=== PATIENT | female | born 1960 | race African-American/Black ===

== ENCOUNTER 2016-06-02 17:28 | Emergency (ER) | payer MEDICARE, MEDICAID ==
[2016-06-02] MEDS ORDERED: ONDANSETRON 4 MG ORAL DISINTEGRATING TAB (S0181) As Ordered ONE (18:26)
--- NOTE | 2016-06-02 18:33 | EDDOCDS ---
Physician Documentation [facility] Name: Mandie Carreon Age: 55 yrs Sex: Female : 1960 Arrival Date: 06/02/2016 Time: 17:28 Bed Triage 1 Private MD: Gloria Jovel C Disposition: 06/02/16 18:27 Discharged to Home/Self Care. Impression: Other dental procedure status - post operative pain and swelling. - Condition is Stable. - Discharge Instructions: Dental Pain. - Prescriptions for ZOFRAN ODT 4 mg Oral - dissolve 1 tablet by ORAL route 4 times per day As needed do not chew, do not swallow whole; 15 tablet. - Medication Reconciliation, Local Pharmacy Hours, Dental Referral List form. - Follow up: Gloria Jovel; When: Call to arrange an appointment; Reason: Recheck today's complaints, Continuance of care. - Problem is new. - Symptoms are unchanged. Historical: - Allergies: Darvocet-N 100 (Vomit); Tramadol HCl (itching); - Home Meds: 1. Nasal [place] 12 Hour 0.05 % nasal spry 2 times per day 2. amoxicillin-pot clavulanate 875-125 mg Oral tab every 12 hours 3. ibuprofen 800 mg Oral tab 4 times per day 4. oxycodone-acetaminophen 5-325 mg Oral tab every 6 hours (Last dose: 06/02/2016) 5. Vitamin D2 50,000 unit oral cap 1 cap once wkly 6. proAir HFA 2 puff as needed - PMHx: Bronchitis; - PSHx: oral surgery; - Social history: Smoking status: Patient states was never smoker of tobacco. No barriers to communication noted, The patient speaks fluent Azeri, Speaks appropriately for age. - Family history: Not pertinent. - : The pt / caregiver states he / she is not on anticoagulants. Home medication list is obtained from the patient. - Exposure Risk Screening:: None identified. 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 6 in. (167.64 cm) (R); Pain 10/22; 17:30 Body Mass Index 23.73 (66.68 kg, 167.64 cm) gr2 MDM: 18:25 Ondansetron ODT Oral Disintegrating Tablet 4 mg PO once ordered. mo1 Administered Medications: 18:28 Drug: Ondansetron ODT 4 mg [ondansetron 4 mg disintegrating tablet (1 tabs)] Route: PO; ck1 Signatures: Shraddha Douglas,RN RN ck1 Hoang Garza PA PA mo1 Iman Ricketts,ANA MARIA RN mei MTDD
--- NOTE | 2016-06-02 18:34 | EDDOCDS ---
Nurse's Notes [facility] Name: Mandie Carreon Age: 55 yrs Sex: Female : 1960 Arrival Date: 06/02/2016 Time: 17:28 Bed Triage 1 Private MD: Gloria Jovel C Diagnosis: Other dental procedure status-post operative pain and swelling Presentation: 06/02 17:43 Presenting complaint: Patient states: pt reports having oral surgery on 05/30/16. Pt c/o ead n/v since. Adult Sepsis Screening: The patient does not have new or worsening altered mentation. Patient's respiratory rate is less than 22. Systolic blood pressure is greater than 100. Patient has a qSOFA score of 0- Negative Sepsis Screen. Suicide/Homicide risk assessment- the patient denies having any suicidal and/or homicidal ideations and does not present with any other emotional, behavioral or mental health complaints. Status: Patient is not a vp client services or dependent. Transition of care: patient was not received from another setting of care. 17:43 Acuity: VICTOR M Level 4 ead 17:43 Method Of Arrival: Walkin/Carried/Asstd ead Triage Assessment: 17:46 General: Appears in no apparent distress, uncomfortable, Behavior is appropriate for ead age, cooperative. Pain: Location: face Pain currently is 10 out of 10 on a pain scale. HIV screening NA for this visit Offered previously. EENT: Reports pain in right cheek and right jaw. GI: Reports nausea, vomiting. 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 Nasal [place] 12 Hour 0.05 % nasal spry 2 times per day 2. amoxicillin-pot clavulanate 875-125 mg Oral tab every 12 hours 3. ibuprofen 800 mg Oral tab 4 times per day 4. oxycodone-acetaminophen 5-325 mg Oral tab every 6 hours (Last dose: 06/02/2016) 5. Vitamin D2 50,000 unit oral cap 1 cap once wkly 6. proAir HFA 2 puff as needed - PMHx: Bronchitis; - PSHx: oral surgery; - Social history: Smoking status: Patient states was never smoker of tobacco. No barriers to communication noted, The patient speaks fluent Kyrgyz, Speaks appropriately for age. - Family history: Not pertinent. - : The pt / caregiver states he / she is not on anticoagulants. Home medication list is obtained from the patient. - Exposure Risk Screening:: None identified. Screenin:29 Screening information is obtained from the patient. Fall risk: No risks identified. ck1 Assistance ADL's: requires no assistance with activities of daily living. Abuse/DV Screen: The patient / caregiver reports he/she is: not in a situation that causes fear, pain or injury. Nutritional screening: No deficits noted. Advance Directives: Currently, there is no health care proxy. home support is adequate. Assessment: 18:29 General: Appears uncomfortable, Behavior is appropriate for age, cooperative. Pain: ck1 Location: right jaw Pain currently is 10 out of 10 on a pain scale. Derm: Swollen area noted on right cheek. Musculoskeletal: Circulation, motion, and sensation intact Range of motion intact in all extremities. Vital Signs: 17:30 BP 117 / 77; Pulse 79; Resp 18 S; Temp 100.3; Pulse Ox 99% on R/A; Weight 66.68 kg (R); gr2 Height 5 ft. 6 in. (167.64 cm) (R); Pain 6/10; 17:30 Body Mass Index 23.73 (66.68 kg, 167.64 cm) gr2 Vitals: 17:30 Log In Time: June 02, 2016 at 17:30. gr2 ED Course: 17:30 Patient visited by Stacy Lewis. gr2 17:30 Gloria Jovel is Private Physician. gr2 17:30 Patient moved to Waiting gr2 17:33 Patient visited by Stacy Lewis. gr2 17:33 Patient moved to Pre RCE gr2 17:44 Triage Initiated ead 17:55 Patient moved to Triage 1 mlb1 18:09 Hoang Garza PA is PHCP. mo1 18:09 Monique Blackman MD is Attending Physician. mo1 18:12 Patient visited by Shraddha Douglas RN. ck1 18:21 Patient visited by Hoang Garza PA. mo1 18:26 Gloria Jovel is Referral Physician. mo1 18:29 The patient / caregiver is instructed regarding the plan of care and ED course. ck1 18:29 No IV's were initiated during this patient's visit. No procedures done that require ck1 assistance. Administered Medications: 18:28 Drug: Ondansetron ODT 4 mg [ondansetron 4 mg disintegrating tablet (1 tabs)] Route: PO; ck1 Order Results: There are currently no results for this order. Outcome: 18:27 Discharge ordered by Provider. mo1 18:28 Discharge Assessment: Patient awake, alert and oriented x 3. No cognitive and/or ck1 functional deficits noted. Patient verbalized understanding of disposition instructions. patient administered narcotics - no. The following High Risk Discharge criteria are identified: None. Discharged to home ambulatory. Condition: stable. Discharge instructions given to patient, Instructed on discharge instructions, follow up and referral plans. medication usage, Demonstrated understanding of instructions, medications, Pt was receptive of discharge instructions/ teaching. Prescriptions given X 1. No special radiology studies were completed. Property :Personal belongings accompany Pt. 18:32 Patient left the ED. ck1 Signatures: Hoang Shaffer RN RN mlb1 Shraddha DouglasRN RN ck1 Stacy Lewis gr2 Hoang Garza PA PA mo1 Iman Ricketts,RN RN mei MTDD
--- NOTE | 2016-06-04 19:33 | EDDOCDS ---
Nurse's Notes [facility] Name: Mandie Carreon Age: 55 yrs Sex: Female : 1960 Arrival Date: 06/02/2016 Time: 17:28 Bed Triage 1 Private MD: Gloria Jovel C Diagnosis: Other dental procedure status-post operative pain and swelling Presentation: 06/02 17:43 Presenting complaint: Patient states: pt reports having oral surgery on 05/30/16. Pt c/o ead n/v since. Adult Sepsis Screening: The patient does not have new or worsening altered mentation. Patient's respiratory rate is less than 22. Systolic blood pressure is greater than 100. Patient has a qSOFA score of 0- Negative Sepsis Screen. Suicide/Homicide risk assessment- the patient denies having any suicidal and/or homicidal ideations and does not present with any other emotional, behavioral or mental health complaints. 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 Transition of care: patient was not received from another setting of care. 17:43 Acuity: VICTOR M Level 4 ead 17:43 Method Of Arrival: Walkin/Carried/Asstd ead Triage Assessment: 17:46 General: Appears in no apparent distress, uncomfortable, Behavior is appropriate for ead age, cooperative. Pain: Location: face Pain currently is 10 out of 10 on a pain scale. HIV screening NA for this visit Offered previously. EENT: Reports pain in right cheek and right jaw. GI: Reports nausea, vomiting. 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 Nasal [place] 12 Hour 0.05 % nasal spry 2 times per day 2. amoxicillin-pot clavulanate 875-125 mg Oral tab every 12 hours 3. ibuprofen 800 mg Oral tab 4 times per day 4. oxycodone-acetaminophen 5-325 mg Oral tab every 6 hours (Last dose: 06/02/2016) 5. Vitamin D2 50,000 unit oral cap 1 cap once wkly 6. proAir HFA 2 puff as needed - PMHx: Bronchitis; - PSHx: oral surgery; - Social history: Smoking status: Patient states was never smoker of tobacco. No barriers to communication noted, The patient speaks fluent Kuwaiti, Speaks appropriately for age. - Family history: Not pertinent. - : The pt / caregiver states he / she is not on anticoagulants. Home medication list is obtained from the patient. - Exposure Risk Screening:: None identified. Screenin:29 Screening information is obtained from the patient. Fall risk: No risks identified. ck1 Assistance ADL's: requires no assistance with activities of daily living. Abuse/DV Screen: The patient / caregiver reports he/she is: not in a situation that causes fear, pain or injury. Nutritional screening: No deficits noted. Advance Directives: Currently, there is no health care proxy. home support is adequate. Assessment: 18:29 General: Appears uncomfortable, Behavior is appropriate for age, cooperative. Pain: ck1 Location: right jaw Pain currently is 10 out of 10 on a pain scale. Derm: Swollen area noted on right cheek. Musculoskeletal: Circulation, motion, and sensation intact Range of motion intact in all extremities. Vital Signs: 17:30 BP 117 / 77; Pulse 79; Resp 18 S; Temp 100.3; Pulse Ox 99% on R/A; Weight 66.68 kg (R); gr2 Height 5 ft. 6 in. (167.64 cm) (R); Pain 6/10; 17:30 Body Mass Index 23.73 (66.68 kg, 167.64 cm) gr2 Vitals: 17:30 Log In Time: June 02, 2016 at 17:30. gr2 ED Course: 17:30 Patient visited by Stacy Lewis. gr2 17:30 Gloria Jovel is Private Physician. gr2 17:30 Patient moved to Waiting gr2 17:33 Patient visited by Stacy Lewis. gr2 17:33 Patient moved to Pre RCE gr2 17:44 Triage Initiated ead 17:55 Patient moved to Triage 1 mlb1 18:09 Hoang Garza PA is PHCP. mo1 18:09 Monique Blackman MD is Attending Physician. mo1 18:12 Patient visited by Shraddha Douglas RN. ck1 18:21 Patient visited by Hoang Garza PA. mo1 18:26 Gloria Jovel is Referral Physician. mo1 18:29 The patient / caregiver is instructed regarding the plan of care and ED course. ck1 18:29 No IV's were initiated during this patient's visit. No procedures done that require ck1 assistance. 18:42 [facility] Payment Agreement was scanned into [employer] and attached to record. jian 06/03 11:13 T-Sheet-- Draft Copy was scanned into [employer] and attached to record. gb Administered Medications: 06/02 18:28 Drug: Ondansetron ODT 4 mg [ondansetron 4 mg disintegrating tablet (1 tabs)] Route: PO; ck1 Order Results: There are currently no results for this order. Outcome: 18:27 Discharge ordered by Provider. mo1 18:28 Discharge Assessment: Patient awake, alert and oriented x 3. No cognitive and/or ck1 functional deficits noted. Patient verbalized understanding of disposition instructions. patient administered narcotics - no. The following High Risk Discharge criteria are identified: None. Discharged to home ambulatory. Condition: stable. Discharge instructions given to patient, Instructed on discharge instructions, follow up and referral plans. medication usage, Demonstrated understanding of instructions, medications, Pt was receptive of discharge instructions/ teaching. Prescriptions given X 1. No special radiology studies were completed. Property :Personal belongings accompany Pt. 18:32 Patient left the ED. ck1 Signatures: Ariella Adams, Reg Reg gb Hoang Shaffer, RN RN mlb1 Shraddha Douglas RN RN ck1 Oneyda Garcia Gainslee gr2 Hoang Garza PA PA mo1 Iman Ricketts,ANA MARIA hurley Chart Complete MTDD
--- NOTE | 2016-06-04 19:33 | EDDOCDS ---
Physician Documentation [facility] Name: Mandie Carreon Age: 55 yrs Sex: Female : 1960 Arrival Date: 06/02/2016 Time: 17:28 Bed Triage 1 Private MD: Gloria Jovel C Disposition: 06/02/16 18:27 Discharged to Home/Self Care. Impression: Other dental procedure status - post operative pain and swelling. - Condition is Stable. - Discharge Instructions: Dental Pain. - Prescriptions for ZOFRAN ODT 4 mg Oral - dissolve 1 tablet by ORAL route 4 times per day As needed do not chew, do not swallow whole; 15 tablet. - Medication Reconciliation, Local Pharmacy Hours, Dental Referral List form. - Follow up: Gloria Jovel; When: Call to arrange an appointment; Reason: Recheck today's complaints, Continuance of care. - Problem is new. - Symptoms are unchanged. Historical: - Allergies: Darvocet-N 100 (Vomit); Tramadol HCl (itching); - Home Meds: 1. Nasal [place] 12 Hour 0.05 % nasal spry 2 times per day 2. amoxicillin-pot clavulanate 875-125 mg Oral tab every 12 hours 3. ibuprofen 800 mg Oral tab 4 times per day 4. oxycodone-acetaminophen 5-325 mg Oral tab every 6 hours (Last dose: 06/02/2016) 5. Vitamin D2 50,000 unit oral cap 1 cap once wkly 6. proAir HFA 2 puff as needed - PMHx: Bronchitis; - PSHx: oral surgery; - Social history: Smoking status: Patient states was never smoker of tobacco. No barriers to communication noted, The patient speaks fluent Estonian, Speaks appropriately for age. - Family history: Not pertinent. - : The pt / caregiver states he / she is not on anticoagulants. Home medication list is obtained from the patient. - Exposure Risk Screening:: None identified. 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 6 in. (167.64 cm) (R); Pain 10/22; 17:30 Body Mass Index 23.73 (66.68 kg, 167.64 cm) gr2 MDM: 18:25 Ondansetron ODT Oral Disintegrating Tablet 4 mg PO once ordered. mo1 18:35 Financial registration complete. zo 18:42 [facility] Payment Agreement was scanned into [employer] and attached to record. zo 06/03 11:13 T-Sheet-- Draft Copy was scanned into [employer] and attached to record. gb Administered Medications: 06/02 18:28 Drug: Ondansetron ODT 4 mg [ondansetron 4 mg disintegrating tablet (1 tabs)] Route: PO; ck1 Signatures: Ariella Adams, Reg Reg gb Shraddha Douglas,RN RN ck1 Oneyda Garcia Michael, PA PA mo1 Iman Ricketts,RN ANA MARIA hurley The chart was reviewed and I authenticate all verbal orders and agree with the evaluation and treatment provided.Attachments: 18:42 [facility] Payment Agreement zo 06/03 11:13 T-Sheet-- Draft Copy gb Chart Complete MTDD
--- NOTE | 2016-06-04 19:33 | EDDOCDS ---
Physician Documentation [facility] Name: Mandie Carreon Age: 55 yrs Sex: Female : 1960 Arrival Date: 06/02/2016 Time: 17:28 Bed Triage 1 Private MD: Gloria Jovel C Disposition: 06/02/16 18:27 Discharged to Home/Self Care. Impression: Other dental procedure status - post operative pain and swelling. - Condition is Stable. - Discharge Instructions: Dental Pain. - Prescriptions for ZOFRAN ODT 4 mg Oral - dissolve 1 tablet by ORAL route 4 times per day As needed do not chew, do not swallow whole; 15 tablet. - Medication Reconciliation, Local Pharmacy Hours, Dental Referral List form. - Follow up: Gloria Jovel; When: Call to arrange an appointment; Reason: Recheck today's complaints, Continuance of care. - Problem is new. - Symptoms are unchanged. Historical: - Allergies: Darvocet-N 100 (Vomit); Tramadol HCl (itching); - Home Meds: 1. Nasal [place] 12 Hour 0.05 % nasal spry 2 times per day 2. amoxicillin-pot clavulanate 875-125 mg Oral tab every 12 hours 3. ibuprofen 800 mg Oral tab 4 times per day 4. oxycodone-acetaminophen 5-325 mg Oral tab every 6 hours (Last dose: 06/02/2016) 5. Vitamin D2 50,000 unit oral cap 1 cap once wkly 6. proAir HFA 2 puff as needed - PMHx: Bronchitis; - PSHx: oral surgery; - Social history: Smoking status: Patient states was never smoker of tobacco. No barriers to communication noted, The patient speaks fluent Arabic, Speaks appropriately for age. - Family history: Not pertinent. - : The pt / caregiver states he / she is not on anticoagulants. Home medication list is obtained from the patient. - Exposure Risk Screening:: None identified. 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 6 in. (167.64 cm) (R); Pain 10/22; 17:30 Body Mass Index 23.73 (66.68 kg, 167.64 cm) gr2 MDM: 18:25 Ondansetron ODT Oral Disintegrating Tablet 4 mg PO once ordered. mo1 18:35 Financial registration complete. zo 18:42 [facility] Payment Agreement was scanned into [employer] and attached to record. zo 06/03 11:13 T-Sheet-- Draft Copy was scanned into [employer] and attached to record. gb Administered Medications: 06/02 18:28 Drug: Ondansetron ODT 4 mg [ondansetron 4 mg disintegrating tablet (1 tabs)] Route: PO; ck1 Signatures: Ariella Adams, Reg Reg gb Shraddha Douglas,RN RN ck1 Oneyda Garcia Michael, PA PA mo1 Iman Ricketts,RN ANA MARIA hurley The chart was reviewed and I authenticate all verbal orders and agree with the evaluation and treatment provided.Attachments: 18:42 [facility] Payment Agreement zo 06/03 11:13 T-Sheet-- Draft Copy gb Chart Complete MTDD
== END 2016-06-02 18:32 | disposition home or self-care (01) ==
LOC: M ED 17:28
DX: K08.9 Disorder of teeth and supporting structures, unspecified (principal); J40 Bronchitis, not specified as acute or chronic; Z79.899 Other long term (current) drug therapy; Z88.8 Allergy status to other drugs, medicaments and biological substances

== ENCOUNTER 2016-06-04 11:30 | Emergency (ER) | payer MEDICARE, MEDICAID ==
[2016-06-04] MEDS ORDERED: ONDANSETRON 4MG/2ML VIAL (J2405) As Ordered ONE ×3 (13:37→20:15)
[2016-06-04] MEDS ORDERED: MORPHINE 4 MG/ML 1ML SYRINGE As Ordered ONE ×3 (13:39→16:50)
--- NOTE | 2016-06-04 13:54 | REP ---
CT brain without contrast: History: Head injury. No comparison brain CT. 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 Bone window settings demonstrate an intact bony calvarium. No skull fracture is appreciated. No intraorbital abnormality is seen. There is some maxillary sinus mucosal thickening visible on the right. There are several bubbles of soft tissue gas adjacent to the zygomatic maxillary complex on the right and there is a suggestion of a right anterior zygomatic arch fracture at this location. No other fracture is appreciated. On soft tissue window settings, the lateral, third, and fourth ventricles are normal in size and position. Forbes-white differentiation pattern is normal above and below the tentorium. There is no evidence of intracranial hemorrhage. No infarction, extra-axial fluid collection, mass, edema or midline shift is seen. Impression: Right sided facial fracture at the zygomatico-maxillary complex with some adjacent deep facial soft tissue gas. Mucosal thickening right maxillary sinus. No evidence of skull fracture or intracranial injury seen. Otherwise negative noncontrast head CT. Signed by Jace Roy MD 06/04/2016 02:39 P
--- NOTE | 2016-06-04 14:03 | REP ---
CT cervical spine without contrast 06/04/2016: Indication: Fall. Comparison: CT cervical spine 10/24/15. Technique: 2 mm contiguous spiral axial sections performed through the cervical spine without contrast. Findings: Cervical spine is without acute fracture or displacement. Slight irregularity is noted within the superior endplates of T1 and T2 vertebral bodies. Irregularity within the superior endplate of T1 represents interval change. T2 was previously not included in view on prior study. Some are consistent with small superior endplate compression fractures, stable and without retropulsion. Lung apices are clear bilaterally. Impression: No evidence of cervical spine fracture or prevertebral soft tissue swelling. Small superior endplate compression fractures with less than 10% diminished vertebral body height noted at T1 and T2. There is no retropulsion. The posterior elements are intact at these levels. Signed by Kenzie Matias MD 06/06/2016 10:48 A
[2016-06-04 14:19] LABS: BASO % 0.3 % (0.0-1.0); EOS % 0.4 % (0.0-3.0); LARGE UNSTAINED CELL # 0.1 K/mm3 (0.0-0.4); LARGE UNSTAINED CELL % 1.1 % (0.0-4.0); LYMPH # 1.3 K/mm3 (1.5-4.5); LYMPH % 14.6 % (24.0-44.0); MEAN CORPUSCULAR HGB CONC 33.8 g/dl (32.0-36.5); MEAN CORPUSCULAR VOLUME 85.9 fl (80.0-96.0); MONO # 0.4 K/mm3 (0.0-0.8); MONO % 4.4 % (0.0-5.0); NEUTROPHILS # 6.7 K/mm3 (1.8-7.7); NEUTROPHILS % 79.1 % (36.0-66.0); PLATELET COUNT, AUTOMATED 164 k/mm3 (150-450); RED CELL DISTRIBUTION WIDTH 13.5 % (11.5-14.5); WHITE BLOOD COUNT 8.5 K/mm3 (4.0-10.0)
[2016-06-04 14:24] LABS: ANION GAP 7 MEQ/L (8-16); BLOOD UREA NITROGEN 7 MG/DL (7-18); CALCIUM LEVEL 8.7 MG/DL (8.5-10.1); CARBON DIOXIDE LEVEL 29 MEQ/L (21-32); CHLORIDE LEVEL 106 MEQ/L (98-107); CREATININE FOR GFR 0.66 MG/DL (0.55-1.02); GLOMERULAR FILTRATION RATE > 60.0 (>51); GLUCOSE, FASTING 100 MG/DL (70-105); POTASSIUM SERUM 3.8 MEQ/L (3.5-5.1); SODIUM LEVEL 142 MEQ/L (136-145)
[2016-06-04] MEDS ORDERED: ISOVUE-370 76% 100ML VIAL (Q9967) As Ordered ONE (15:12)
--- NOTE | 2016-06-04 16:51 | REP ---
The thoracic spine three views: Comparison is 05/23/2008. There is mild scoliosis convex left, unchanged. Vertebral body heights, interspacing alignment are normal. There are no compression deformities or listhesis. The pedicles are unremarkable. There are no lytic, blastic or destructive changes. Impression: Mild scoliosis, otherwise negative thoracic spine. No interval change. Signed by Ori Pettit MD 06/04/2016 04:42 P
--- NOTE | 2016-06-04 17:19 | REP ---
CT of the thoracic spine: Axial images are acquired helical scanning in the reformatted sagittal coronal projections. Comparison is the CT of the cervical spine performed earlier today. There is grade 1 compression deformity of the T1 superior endplate, similar to the CT study earlier today. No retropulsed fragments are identified. There is questionable compression deformity of the T2 superior endplate anteriorly. No retropulsed fragments. The remainder of the thoracic vertebral body heights and alignment are normal. There is no listhesis. No posterior element fractures are identified. No evidence of hemothorax or pneumothorax is seen the visualized lung rico. The anterior lateral lung rico are excluded at the film margins. 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 This is partially visualized on the study today. Impression: Grade 1 compression deformity of the T1 superior endplate without retropulsed fragment Questionable compression deformity of the T2 superior endplate anteriorly with no retropulsed fragments. Signed by Ori Pettit MD 06/04/2016 05:10 P
--- NOTE | 2016-06-04 17:32 | REP ---
Maxillofacial CT with IV contrast: There are no comparison studies. There are a air or gas pockets within the soft tissues lateral to the right maxilla. This could be postsurgical change or could represent infection. The skeletal structures of the maxilla and mandible are obscured from beam hardening artifact secondary to dental amalgam. A portion of the right maxillary wall posteriorly is discontinuous. There is circumferential mucosal thickening in the right maxillary sinus. Mucosal thickening just superior to the defect in the posterior wall contains a small focal air collection. The left maxillary sinus is unremarkable. The sphenoid sinuses, ethmoid sinuses and frontal sinuses are unremarkable. There is mucoid impaction of the right ostiomeatal complex. The left ostiomeatal complex is patent. There is no nasal bone fracture. There is no orbit fracture. The zygomatic fracture. The visualized mastoid air cells are clear. Impression: There are air collections in the soft tissues lateral to the right maxilla, postsurgical versus infection. There is circumferential mucosal edema in the right maxillary sinus. There is a defect in the posterior wall of the right maxillary sinus. There is a focal air collection in the edematous mucosa adjacent to the defect. There is mucosal impaction of the right ostiomeatal complex. The maxilla and mandible are obscured by beam-hardening artifact from dental amalgam. Signed by Ori Pettit MD 06/04/2016 05:23 P
[2016-06-04] MEDS ORDERED: MORPHINE 2 MG/ML 1ML SYRINGE As Ordered ONE (20:43)
[2016-06-04] MEDS ORDERED: CEPHALEXIN 250 MG CAP As Ordered ONE (21:12)
[2016-06-04] MEDS ORDERED: ONDANSETRON 4 MG ORAL DISINTEGRATING TAB (S0181) As Ordered ONE (21:14)
[2016-06-04] MEDS ORDERED: OXYCODONE/APAP 5MG/325MG(BULK) 1 TAB TAB As Ordered ONE (21:15)
--- NOTE | 2016-06-04 22:11 | EDDOCDS ---
Nurse's Notes [facility] Name: Mandie Carreon Age: 55 yrs Sex: Female : 1960 Arrival Date: 06/04/2016 Time: 11:30 Bed 19 Private MD: Diagnosis: Atypical facial pain;Fall (on) (from) unspecified stairs and steps Presentation: 06/04 11:38 Presenting complaint: EMS states: "We were called to the house after the pt fell in the mb9 shower and hit the right side of her head. She was hyperventilating when we got seen and complaining her arms and legs were numb". pt reports she had a tooth pulled on 05/30/16 and hasn't felt well since then. pt reports the fall but is unable to recall if she lost consciousness or not. The patient has an altered level of consciousness. The charge nurse has been notified. The patient has been moved to a treatment area. Mechanism of Injury: The problem was sustained at home, resulted from a fall. Adult Sepsis Screening: Patient has new or worsening altered mentation (1 point). Patient has a respiratory rate of greater than or equal to 22 (1 point). Systolic blood pressure is greater than 100. Patient has a qSOFA score of 2. No known or suspected infection- Negative Sepsis Screen. Suicide/Homicide risk assessment- the patient denies having any suicidal and/or homicidal ideations and does not present with any other emotional, behavioral or mental health complaints. Status: Patient is not a developmental services worker or dependent. Transition of care: patient was not received from another setting of care. 11:38 Acuity: VICTOR M Level 2 mb9 11:38 Method Of Arrival: Ambulance 9 12:09 Care prior to arrival: Medications administered prior to arrival: zofran. mb9 Triage Assessment: 12:02 General: Appears distressed, Behavior is listless. Pain: Location: right cheek, right mb9 ear and right amish Unable to use pain scale. Patient is disoriented. when asked if she is having pain pt states, "Yes my mouth and my head". when asked to rate her pain pt appears to not understand. HIV screening NA for this visit Offered previously. Neurological: Level of Consciousness is confused, lethargic, Oriented to person, Electrogalvanizing Machine Operator are weak bilaterally Weakness Speech is slurred, Facial symmetry appears normal, Pupils are PERRLA, Numbness in right arm, left arm, right leg and left leg pt reports numbness and tingling to her bilateral arms and legs. painful stimulus applied to bilateral hands and pt did not wince or withdraw from pain. . Neurological: Reports headache weakness. Neurological: pt appears to have tremors periodically while this RN is in the room . Respiratory: Airway is patent Respiratory effort is even, unlabored. 12:09 GI: Reports nausea, vomiting. mb9 GRINDER OUTSIDE DIAMETER: 12:09 LMP N/A - Post-menopause mb9 Historical: - Allergies: Darvocet-N 100 (Vomit); Tramadol HCl (itching); - Home Meds: 1. amoxicillin-pot clavulanate 875-125 mg Oral tab every 12 hours 2. ibuprofen 800 mg Oral tab 4 times per day 3. Nasal [place] 12 Hour 0.05 % nasal spry 2 times per day 4. oxycodone-acetaminophen 5-325 mg Oral tab every 6 hours 5. proAir HFA 2 puff as needed 6. Vitamin D2 50,000 unit oral cap 1 cap once wkly - PMHx: Bronchitis; - PSHx: oral surgery; - Social history: Smoking status: unknown if patient ever smoked tobacco. No barriers to communication noted, The patient speaks fluent Nauruan. - Family history: No immediate family members are acutely ill. - : The pt / caregiver states he / she is not on anticoagulants. Home medication list is obtained from the facility [facility]. - Exposure Risk Screening:: Unable to Assess. Screenin:32 Screening information is obtained from the patient. Fall risk: No risks identified. mb9 Assistance ADL's: requires no assistance with activities of daily living. Abuse/DV Screen: The patient / caregiver reports he/she is: not in a situation that causes fear, pain or injury. Nutritional screening: No deficits noted. Advance Directives: There is no active DNR order. home support is adequate. Assessment: 13:02 Reassessment: Patient states symptoms have not improved. General: Behavior is mb9 cooperative. Pain: Location: right cheek, right ear and right amish Pain currently is 7 out of 10 on a pain scale. Respiratory: Airway is patent Respiratory effort is even, unlabored. GI: Reports vomiting. 13:16 General: Pt requesting new blankets due to vomit on her current blanket. Blankets ld5 provided. Pt denies any other needs at this time. Will continue to monitor. 14:00 Adult Sepsis Screening: Patient has new or worsening altered mentation (1 point). mb9 Patient's respiratory rate is less than 22. Systolic blood pressure is greater than 100. Patient has a qSOFA score of 1- Negative Sepsis Screen. 15:30 Reassessment: Patient states symptoms have improved. General: Appears in no apparent mb9 distress, Behavior is appropriate for age, cooperative. Pain: Location: right cheek, right ear and right amish Pain currently is 4 out of 10 on a pain scale. Respiratory: Airway is patent Respiratory effort is even, unlabored. 16:59 General: Pt assisted to commode. Upon standing from the commode to return to bed, pt ld5 stiffened up and stood still. This RN asked pt what she was experiencing and after a few seconds pt stated sharp pain to right amish. Pt assisted back to bed. Pt then reported nausea. Provider made aware and pt medicated per orders. Call manuel within reach. Will continue to monitor. 18:25 Adult Sepsis Screening: The patient does not have new or worsening altered mentation. mb9 Patient's respiratory rate is less than 22. Systolic blood pressure is greater than 100. Patient has a qSOFA score of 0- Negative Sepsis Screen. General: Appears in no apparent distress, Behavior is appropriate for age, cooperative. Respiratory: Airway is patent Respiratory effort is even, unlabored. 19:41 Reassessment: Patient appears in no apparent distress at this time. Patient states mb9 symptoms have improved. General: Appears in no apparent distress, comfortable, Behavior is appropriate for age, cooperative. Respiratory: Airway is patent Respiratory effort is even, unlabored. 20:22 General: Appears uncomfortable, Behavior is appropriate for age, cooperative. Pain: mb9 Location: right cheek, right ear, right amish and right jaw Pain currently is 6 out of 10 on a pain scale. GI: Reports vomiting. 21:32 Reassessment: Patient appears in no apparent distress at this time. Adult Sepsis mb9 Screening: The patient does not have new or worsening altered mentation. Patient's respiratory rate is less than 22. Systolic blood pressure is greater than 100. Patient has a qSOFA score of 0- Negative Sepsis Screen. General: Appears in no apparent distress, comfortable, Behavior is appropriate for age, cooperative. Respiratory: Airway is patent Respiratory effort is even, unlabored. Vital Signs: 11:38 BP 159 / 96; Pulse 91; Resp 26; Temp 98.2; Pulse Ox 100% ; mb9 11:47 Pulse 92 MON; Pulse Ox 100% ; mb9 11:47 BP 159 / 96 (auto/); mb9 12:07 Pulse 80 MON; Pulse Ox 97% ; mb9 12:07 BP 125 / 86 (auto/); mb9 12:22 Pulse 74 MON; mb9 12:22 BP 144 / 92 (auto/); mb9 12:37 Pulse 72 MON; Pulse Ox 96% ; mb9 12:37 BP 127 / 81 (auto/); mb9 12:52 Pulse 76 MON; Pulse Ox 98% ; mb9 12:52 BP 124 / 74 (auto/); mb9 13:07 Pulse 72 MON; Pulse Ox 98% ; mb9 13:07 BP 119 / 85 (auto/); mb9 13:22 Pulse 74 MON; Pulse Ox 97% ; mb9 13:22 BP 121 / 74 (auto/); mb9 13:37 Pulse 72 MON; Pulse Ox 99% ; mb9 13:37 BP 126 / 81 (auto/); mb9 13:52 Pulse 70 MON; Pulse Ox 98% ; mb9 13:52 BP 119 / 78 (auto/); mb9 14:07 Pulse 72 MON; Pulse Ox 98% ; mb9 14:07 BP 121 / 68 (auto/); mb9 14:22 Pulse 72 MON; Pulse Ox 99% ; mb9 14:22 BP 131 / 86 (auto/); mb9 14:37 Pulse 74 MON; Pulse Ox 99% ; mb9 14:37 BP 151 / 85 (auto/); mb9 14:44 Pain 4/10; mb9 14:52 Pulse 78 MON; Pulse Ox 99% ; mb9 14:52 BP 157 / 78 (auto/); mb9 15:07 Pulse 72 MON; Pulse Ox 99% ; mb9 15:07 BP 150 / 70 (auto/); mb9 15:22 Pulse 68 MON; mb9 15:22 BP 136 / 80 (auto/); mb9 15:38 Pulse 76 MON; mb9 16:43 Resp 18; Temp 97(O); ld5 16:53 BP 122 / 78 (auto/); mb9 16:55 BP 122 / 78; Pulse 72; Resp 16; Pulse Ox 99% on R/A; Pain 10/10; ld5 19:06 BP 134 / 70 (auto/); mb9 19:07 Pulse 68 MON; Pulse Ox 97% ; mb9 19:36 BP 122 / 78 (auto/); mb9 19:37 Pulse 72 MON; Pulse Ox 98% ; mb9 21:32 BP 135 / 84; Pulse 77; Resp 17; Temp 96(T); Pulse Ox 99% ; mb9 21:35 Pain 3/10; mb9 Vitals: 11:38 Log In Time N/A - ambulance arrival. mb9 Mack Coma Score: 11:38 Eye Response: spontaneous(4). Verbal Response: confused(4). Motor Response: obeys mb9 commands(6). Total: 14. ED Course: 11:31 Patient visited by Jeanette Olvera PCA. ar3 11:31 Patient moved to Waiting ar3 11:31 Patient moved to 19 ar3 11:53 Triage Initiated mb9 12:04 Alcira Holt MD is Attending Physician. fg 12:04 Patient visited by Alcira Holt MD. fg 12:11 Maintain field IV. Dressing intact. Good blood return noted. Site clean & dry. Gauge & mb9 site: 20 gauge left ac. 12:52 [facility] Payment Agreement was scanned into [employer] and attached to record. jls1 13:02 Patient visited by Hoang Qureshi RN. mb9 13:17 Patient visited by Kelsey Aguilar RN. ld5 14:34 CT Head Without Contrast Returned. EDMS 14:34 CT Spine,Cervical W/o Contrast Returned. EDMS 14:41 Patient visited by Alcira Holt MD. fg 16:00 Patient visited by Kim Nobles PCA. rs6 16:00 Patient moved to MRI rs6 16:25 Patient moved to 19 dem1 16:55 Spine, Thoracic 3 Views Returned. EDMS 17:02 Patient visited by Kelsey Aguilar,ANA MARIA. ld5 17:44 CT Spine,Thoracic W/o Contrast Returned. EDMS 17:44 CT Maxillofacial with contrast Returned. EDMS 18:24 Patient visited by Hoang Qureshi RN. mb9 19:09 Patient visited by Hoang Qureshi RN. mb9 20:10 Patient visited by Hoang Qureshi RN. mb9 21:02 Nikkie Munoz is Referral Physician. fg 21:32 The patient / caregiver is instructed regarding the plan of care and ED course. mb9 21:32 Discontinued IV lock intact, bleeding controlled, pressure dressing applied. No mb9 procedures done that require assistance. Administered Medications: 13:50 Drug: Ondansetron 4 mg [ondansetron HCl 2 mg/mL intravenous solution (2 mL)] Route: mb9 IVP; Site: left antecubital; 14:44 Follow up: Response: Nausea is resolved mb9 13:50 Drug: morphine 4 mg [morphine 4 mg/mL intravenous cartridge (1 mL)] Route: IVP; Site: mb9 left antecubital; 14:44 Follow up: Pain 4/10 Adult; Response: Confirmed pt not driving.; Pain is decreased mb9 16:58 Drug: morphine 4 mg [morphine 4 mg/mL intravenous cartridge (1 mL)] Route: IVP; Site: ld5 left antecubital; 16:58 Drug: Ondansetron 4 mg [ondansetron HCl 2 mg/mL intravenous solution (2 mL)] Route: ld5 IVP; Site: left antecubital; 20:24 Drug: Ondansetron 4 mg [ondansetron HCl 2 mg/mL intravenous solution (2 mL)] Route: mb9 IVP; Site: left antecubital; 20:24 Drug: NS 0.9% 500 ml [sodium chloride 0.9 % intravenous solution] Route: IV; Rate: mb9 bolus; Site: left antecubital; 20:51 Drug: morphine 2 mg [morphine 2 mg/mL intravenous cartridge (1 mL)] Route: IVP; Site: mb9 left antecubital; 21:35 Follow up: Pain 3/10 Adult; Response: Confirmed pt not driving.; Pain is decreased mb9 21:31 Drug: Cephalexin 500 mg [cephalexin 250 mg capsule (2 caps)] Route: PO; mb9 21:31 Drug: oxyCODONE-acetaminophen 4 pack 1 packets [oxycodone-acetaminophen 5 mg-325 mg mb9 tablet (1 tabs)] {Co-Signature: [email or web address] (Lenora Ojeda RN).} Route: PO; 21:32 Drug: Ondansetron 4 mg [ondansetron HCl 4 mg tablet (1 tabs)] {Note: dispensed home mb9 with pt.} Route: PO; Point of Care Testing: Blood Glucose: 12:09 Blood Glucose: 113 mg/dL; mb9 Ranges: Order Results: Lab Order: Fingerstick Blood Sugar; SPEC'M 06/04/16 11:49 Test: BEDSIDE GLUCOSE; Value: 113; Range: 70-105; Abnormal: Above high normal; Units: MG/DL; Status: F Lab Order: CBC with Diff; SPEC'M 06/04/16 13:58 Test: WHITE BLOOD COUNT; Value: 8.5; Range: 4.0-10.0; Units: K/mm3; Status: F Test: RED BLOOD COUNT; Value: 3.94; Range: 4.00-5.40; Abnormal: Below low normal; Units: M/mm3; Status: F Test: HEMOGLOBIN; Value: 11.4; Range: 12.0-16.0; Abnormal: Below low normal; Units: g/dl; Status: F Test: HEMATOCRIT; Value: 33.8; Range: 36.0-47.0; Abnormal: Below low normal; Units: %; Status: F Test: MEAN CORPUSCULAR VOLUME; Value: 85.9; Range: 80.0-96.0; Units: fl; Status: F Test: MEAN CORPUSCULAR HEMOGLOBIN; Value: 29.0; Range: 27.0-33.0; Units: pg; Status: F Test: MEAN CORPUSCULAR HGB CONC; Value: 33.8; Range: 32.0-36.5; Units: g/dl; Status: F Test: RED CELL DISTRIBUTION WIDTH; Value: 13.5; Range: 11.5-14.5; Units: %; Status: F Test: PLATELET COUNT, AUTOMATED; Value: 164; Range: 150-450; Units: k/mm3; Status: F Test: NEUTROPHILS %; Value: 79.1; Range: 36.0-66.0; Abnormal: Above high normal; Units: %; Status: F Test: LYMPH %; Value: 14.6; Range: 24.0-44.0; Abnormal: Below low normal; Units: %; Status: F Test: MONO %; Value: 4.4; Range: 0.0-5.0; Units: %; Status: F Test: EOS %; Value: 0.4; Range: 0.0-3.0; Units: %; Status: F Test: BASO %; Value: 0.3; Range: 0.0-1.0; Units: %; Status: F Test: LARGE UNSTAINED CELL %; Value: 1.1; Range: 0.0-4.0; Units: %; Status: F Test: NEUTROPHILS #; Value: 6.7; Range: 1.8-7.7; Units: K/mm3; Status: F Test: LYMPH #; Value: 1.3; Range: 1.5-4.5; Abnormal: Below low normal; Units: K/mm3; Status: F Test: MONO #; Value: 0.4; Range: 0.0-0.8; Units: K/mm3; Status: F Test: EOS #; Value: 0.0; Range: 0.0-0.50; Units: K/mm3; Status: F Test: BASO #; Value: 0.0; Range: 0.0-0.2; Units: K/mm3; Status: F Test: LARGE UNSTAINED CELL #; Value: 0.1; Range: 0.0-0.4; Units: K/mm3; Status: F Lab Order: Basic Metabolic Profile; SPEC'M 06/04/16 13:58 Test: GLUCOSE, FASTING; Value: 100; Range: 70-105; Units: MG/DL; Status: F Test: BLOOD UREA NITROGEN; Value: 7; Range: 7-18; Units: MG/DL; Status: F Test: CREATININE FOR GFR; Value: 0.66; Range: 0.55-1.02; Units: MG/DL; Status: F Test: GLOMERULAR FILTRATION RATE; Value: > 60.0; Range: >51; Status: F Test: SODIUM LEVEL; Value: 142; Range: 136-145; Units: MEQ/L; Status: F Test: POTASSIUM SERUM; Value: 3.8; Range: 3.5-5.1; Units: MEQ/L; Status: F Test: CHLORIDE LEVEL; Value: 106; Range: 98-107; Units: MEQ/L; Status: F Test: CARBON DIOXIDE LEVEL; Value: 29; Range: 21-32; Units: MEQ/L; Status: F Test: ANION GAP; Value: 7; Range: 8-16; Abnormal: Below low normal; Units: MEQ/L; Status: F Test: CALCIUM LEVEL; Value: 8.7; Range: 8.5-10.1; Units: MG/DL; Status: F Test Note: ; Units are mL/min/1.73 m2 Chronic Kidney Disease Staging per NKF: Stage I & II GFR >=60 Normal to Mildly Decreased Stage III GFR 30-59 Moderately Decreased Stage IV GFR 15-29 Severely Decreased Stage V GFR <15 Very Little GFR Left ESRD GFR <15 on [employer] Radiology Order: CT Head Without Contrast Test: CT Head Without Contrast REASON FOR EXAMINATION: head injury ; CT brain without contrast:; ; History: Head injury.; ; No comparison brain CT.; ; Findings: [employer] radiographs are unremarkable. Bone window settings demonstrate; an intact bony calvarium. No skull fracture is appreciated. No intraorbital; abnormality is seen. There is some maxillary sinus mucosal thickening visible on; the right. There are several bubbles of soft tissue gas adjacent to the; zygomatic maxillary complex on the right and there is a suggestion of a right; anterior zygomatic arch fracture at this location. No other fracture is; appreciated.; ; On soft tissue window settings, the lateral, third, and fourth ventricles are; normal in size and position. Forbes-white differentiation pattern is normal above; and below the tentorium. There is no evidence of intracranial hemorrhage. No; infarction, extra-axial fluid collection, mass, edema or midline shift is seen.; ; Impression:; ; Right sided facial fracture at the zygomatico-maxillary complex with some; adjacent deep facial soft tissue gas. Mucosal thickening right maxillary sinus.; No evidence of skull fracture or intracranial injury seen. Otherwise negative; noncontrast head CT.; ; ; Signed by; Jace Roy MD 06/04/2016 02:39 P; Radiology Order: CT Spine,Cervical W/o Contrast Test: CT Spine,Cervical W/o Contrast REASON FOR EXAMINATION: fall; CT cervical spine without contrast 06/04/2016:; ; Indication: Fall.; ; Comparison: CT cervical spine 10/24/15.; ; Technique: 2 mm contiguous spiral axial sections performed through the cervical; spine without contrast.; ; Findings: Cervical spine is without acute fracture or displacement. Slight; irregularity is noted within the superior endplates of T1 and T2 vertebral; bodies. Irregularity within the superior endplate of T1 represents interval; change. T2 was previously not included in view on prior study. Some are; consistent with small superior endplate compression fractures, stable and without; retropulsion.; ; Lung apices are clear bilaterally.; ; Impression:; ; No evidence of cervical spine fracture or prevertebral soft tissue swelling.; ; Small superior endplate compression fractures with less than 10% diminished; vertebral body height noted at T1 and T2. There is no retropulsion. The; posterior elements are intact at these levels.; ; ; ; ; ; ; ; ; ; ; Unreviewed; Radiology Order: Spine, Thoracic 3 Views Test: Spine, Thoracic 3 Views REASON FOR EXAMINATION: thorcic spine pain after fall; The thoracic spine three views:; ; Comparison is 05/23/2008.; ; There is mild scoliosis convex left, unchanged.; ; Vertebral body heights, interspacing alignment are normal. There are no; compression deformities or listhesis.; ; The pedicles are unremarkable. There are no lytic, blastic or destructive; changes.; ; Impression:; ; Mild scoliosis, otherwise negative thoracic spine. No interval change.; ; ; Signed by; Ori Pettit MD 06/04/2016 04:42 P; Radiology Order: CT Maxillofacial with contrast Test: CT Maxillofacial with contrast REASON FOR EXAMINATION: r facial pain after oral surgery and fall; Maxillofacial CT with IV contrast:; ; There are no comparison studies.; ; There are a air or gas pockets within the soft tissues lateral to the right; maxilla. This could be postsurgical change or could represent infection. The; skeletal structures of the maxilla and mandible are obscured from beam hardening; artifact secondary to dental amalgam.; ; A portion of the right maxillary wall posteriorly is discontinuous. There is; circumferential mucosal thickening in the right maxillary sinus. Mucosal; thickening just superior to the defect in the posterior wall contains a small; focal air collection.; ; The left maxillary sinus is unremarkable. The sphenoid sinuses, ethmoid sinuses; and frontal sinuses are unremarkable.; ; There is mucoid impaction of the right ostiomeatal complex. The left ostiomeatal; complex is patent.; ; There is no nasal bone fracture. There is no orbit fracture. The zygomatic; fracture. The visualized mastoid air cells are clear.; ; Impression:; ; There are air collections in the soft tissues lateral to the right maxilla,; postsurgical versus infection.; ; There is circumferential mucosal edema in the right maxillary sinus. There is a; defect in the posterior wall of the right maxillary sinus. There is a focal air; collection in the edematous mucosa adjacent to the defect.; ; There is mucosal impaction of the right ostiomeatal complex.; ; The maxilla and mandible are obscured by beam-hardening artifact from dental; amalgam.; ; ; Signed by; Ori Pettit MD 06/04/2016 05:23 P; Radiology Order: CT Spine,Thoracic W/o Contrast Test: CT Spine,Thoracic W/o Contrast REASON FOR EXAMINATION: fall, t spine pain; CT of the thoracic spine:; ; Axial images are acquired helical scanning in the reformatted sagittal coronal; projections.; ; Comparison is the CT of the cervical spine performed earlier today.; ; There is grade 1 compression deformity of the T1 superior endplate, similar to; the CT study earlier today. No retropulsed fragments are identified.; ; There is questionable compression deformity of the T2 superior endplate; anteriorly. No retropulsed fragments.; ; The remainder of the thoracic vertebral body heights and alignment are normal.; There is no listhesis. No posterior element fractures are identified. No; evidence of hemothorax or pneumothorax is seen the visualized lung rico. 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 This is partially visualized on the study today.; ; Impression: Grade 1 compression deformity of the T1 superior endplate without; retropulsed fragment; ; Questionable compression deformity of the T2 superior endplate anteriorly with no; retropulsed fragments.; ; ; Signed by; Ori Pettit MD 06/04/2016 05:10 P; Outcome: 21:05 Discharge ordered by Provider. fg 21:32 Discharge Assessment: Patient awake, alert and oriented x 3. No cognitive and/or mb9 functional deficits noted. Patient verbalized understanding of disposition instructions. patient administered narcotics - yes. Pt provided with safe discharge. The following High Risk Discharge criteria are identified: None. Discharged to home ambulatory, with family. Condition: good Condition: stable Condition: improved. CT Study completed. MRI Study completed. Property :Personal belongings accompany Pt. 22:10 Patient left the ED. mb9 Signatures: Dispatcher [employer] EDMS Jeanette Olvera, ANIMAL HOSPITAL CLERK ANIMAL HOSPITAL CLERK ar3 Kelsey Aguilar,RN RN ld5 [facility] Hoang Qureshi RN RN mb9 Kim Nobles, ANIMAL HOSPITAL CLERK ANIMAL HOSPITAL CLERK rs6 Jocelin Ortez jls1 Alcira Holt MD MD fg Lenora Ojeda RN [email or web address] Corrections: (The following items were deleted from the chart) 16:43 16:43 Temp 97F Oral; ld5 ld5 MTDD
--- NOTE | 2016-06-04 22:11 | EDDOCDS ---
Physician Documentation [facility] Name: Mandie Carreon Age: 55 yrs Sex: Female : 1960 Arrival Date: 06/04/2016 Time: 11:30 Bed 19 Private MD: Disposition: 06/04/16 21:05 Discharged to Home/Self Care. Impression: Atypical facial pain, Fall (on) (from) unspecified stairs and steps. - Condition is Stable. - Discharge Instructions: Fall Prevention and Home Safety, [id number]. - Prescriptions for Keflex 500 mg Oral Capsule - take 1 capsule by ORAL route every 8 hours for 10 days; 30 capsule. Percocet 5- 325 mg Oral Tablet - take 1 tablet by ORAL route every 8 hours As needed MDD: 4 tabs; 15 tablet. Medrol (Joseph) 4 mg Oral Tablets, Dose Pack - take 1 Pack by ORAL route as directed - follow package instructions; 1 packet. - Medication Reconciliation, Local Pharmacy Hours form. - Follow up: Nikkie Munoz; When: Call to arrange an appointment; Reason: Continuance of care. - Problem is new. - Symptoms have worsened. - Notes: You have been evaluted after your fall. You had a deformity of the T1 superior endplate,compression, with a questionable deformity of T2 superior endplate. Because this was not seen on the MRI, it is likely not new or acute. The neurosurgeon suggests you keep your softcollar onas it may make your pain better and follow up with him next week. There is a questionable right zygomatic-maxillary fracture with some possible swelling and soft tissue gas. This is likely complicatedby your recent surgery. We would like you to follow up with yourOMFS surgeon, andwe would recommend you change your antibiotics to Keflex as suggested by our ENT physician. He also asks that you not blow your nose. Please return to the ED if your symptoms worsen and you are unable to make your follow upappointments. Historical: - Allergies: Darvocet-N 100 (Vomit); Tramadol HCl (itching); - Home Meds: 1. amoxicillin-pot clavulanate 875-125 mg Oral tab every 12 hours 2. ibuprofen 800 mg Oral tab 4 times per day 3. Nasal [place] 12 Hour 0.05 % nasal spry 2 times per day 4. oxycodone-acetaminophen 5-325 mg Oral tab every 6 hours 5. proAir HFA 2 puff as needed 6. Vitamin D2 50,000 unit oral cap 1 cap once wkly - PMHx: Bronchitis; - PSHx: oral surgery; - Social history: Smoking status: unknown if patient ever smoked tobacco. No barriers to communication noted, The patient speaks fluent Maori. - Family history: No immediate family members are acutely ill. - : The pt / caregiver states he / she is not on anticoagulants. Home medication list is obtained from the facility [facility]. - Exposure Risk Screening:: Unable to Assess. 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 LMP N/A - Post-menopause mb9 Vital Signs: 11:38 BP 159 / 96; Pulse 91; Resp 26; Temp 98.2; Pulse Ox 100% ; mb9 11:47 Pulse 92 MON; Pulse Ox 100% ; mb9 11:47 BP 159 / 96 (auto/); mb9 12:07 Pulse 80 MON; Pulse Ox 97% ; mb9 12:07 BP 125 / 86 (auto/); mb9 12:22 Pulse 74 MON; mb9 12:22 BP 144 / 92 (auto/); mb9 12:37 Pulse 72 MON; Pulse Ox 96% ; mb9 12:37 BP 127 / 81 (auto/); mb9 12:52 Pulse 76 MON; Pulse Ox 98% ; mb9 12:52 BP 124 / 74 (auto/); mb9 13:07 Pulse 72 MON; Pulse Ox 98% ; mb9 13:07 BP 119 / 85 (auto/); mb9 13:22 Pulse 74 MON; Pulse Ox 97% ; mb9 13:22 BP 121 / 74 (auto/); mb9 13:37 Pulse 72 MON; Pulse Ox 99% ; mb9 13:37 BP 126 / 81 (auto/); mb9 13:52 Pulse 70 MON; Pulse Ox 98% ; mb9 13:52 BP 119 / 78 (auto/); mb9 14:07 Pulse 72 MON; Pulse Ox 98% ; mb9 14:07 BP 121 / 68 (auto/); mb9 14:22 Pulse 72 MON; Pulse Ox 99% ; mb9 14:22 BP 131 / 86 (auto/); mb9 14:37 Pulse 74 MON; Pulse Ox 99% ; mb9 14:37 BP 151 / 85 (auto/); mb9 14:44 Pain 4/10; mb9 14:52 Pulse 78 MON; Pulse Ox 99% ; mb9 14:52 BP 157 / 78 (auto/); mb9 15:07 Pulse 72 MON; Pulse Ox 99% ; mb9 15:07 BP 150 / 70 (auto/); mb9 15:22 Pulse 68 MON; mb9 15:22 BP 136 / 80 (auto/); mb9 15:38 Pulse 76 MON; mb9 16:43 Resp 18; Temp 97(O); ld5 16:53 BP 122 / 78 (auto/); mb9 16:55 BP 122 / 78; Pulse 72; Resp 16; Pulse Ox 99% on R/A; Pain 10/10; ld5 19:06 BP 134 / 70 (auto/); mb9 19:07 Pulse 68 MON; Pulse Ox 97% ; mb9 19:36 BP 122 / 78 (auto/); mb9 19:37 Pulse 72 MON; Pulse Ox 98% ; mb9 21:32 BP 135 / 84; Pulse 77; Resp 17; Temp 96(T); Pulse Ox 99% ; mb9 21:35 Pain 3/10; mb9 [place] Coma Score: 11:38 Eye Response: spontaneous(4). Verbal Response: confused(4). Motor Response: obeys mb9 commands(6). Total: 14. MDM: 11:58 CT Head Without Contrast Ordered. EDMS 11:59 CT Spine,Cervical W/o Contrast Ordered. EDMS 12:52 [facility] Payment Agreement was scanned into [employer] and attached to record. jls1 12:53 Financial registration complete. jls1 13:35 IV Saline Lock ordered. fg 13:35 Ondansetron 4 mg IVP once ordered. fg 13:35 CBC with Diff Ordered. EDMS 13:35 Basic Metabolic Profile Ordered. EDMS 13:38 morphine 4 mg IVP once ordered. fg 13:38 Spine, Thoracic 3 Views Ordered. EDMS 13:38 NOTHING BY MOUTH+DIET ordered. EDMS 13:40 CT Maxillofacial with contrast Ordered. EDMS 15:11 CT Spine,Thoracic W/o Contrast Ordered. EDMS 15:11 MRI Screening Tool - Place on chart, inform RN ordered. fg 15:11 Apply Cindy Collar to Patient. ordered. fg 15:13 -MRI-Spine,Thoracic without contrast Ordered. EDMS 15:35 MRI Screening Tool - Place on chart, inform RN complete. ar3 16:42 morphine 4 mg IVP once ordered. fg 16:42 Ondansetron 4 mg IVP once ordered. fg 20:14 Ondansetron 4 mg IVP once ordered. fg 20:14 NS 0.9% 500 ml IV at bolus once ordered. fg 20:40 morphine 2 mg IVP once ordered. fg 21:02 Cephalexin 500 mg PO once ordered. fg 21:12 oxyCODONE-acetaminophen 4 pack 5 mg-325 mg 1 packets PO once; Dispense with pt, take as fg per instruction on package ordered. 21:13 Ondansetron 4 mg PO once ordered. fg Point of Care Testing: Blood Glucose: 12:09 Blood Glucose: 113 mg/dL; mb9 Ranges: Administered Medications: 13:50 Drug: Ondansetron 4 mg [ondansetron HCl 2 mg/mL intravenous solution (2 mL)] Route: mb9 IVP; Site: left antecubital; 14:44 Follow up: Response: Nausea is resolved mb9 13:50 Drug: morphine 4 mg [morphine 4 mg/mL intravenous cartridge (1 mL)] Route: IVP; Site: mb9 left antecubital; 14:44 Follow up: Pain 4/10 Adult; Response: Confirmed pt not driving.; Pain is decreased mb9 16:58 Drug: morphine 4 mg [morphine 4 mg/mL intravenous cartridge (1 mL)] Route: IVP; Site: ld5 left antecubital; 16:58 Drug: Ondansetron 4 mg [ondansetron HCl 2 mg/mL intravenous solution (2 mL)] Route: ld5 IVP; Site: left antecubital; 20:24 Drug: Ondansetron 4 mg [ondansetron HCl 2 mg/mL intravenous solution (2 mL)] Route: mb9 IVP; Site: left antecubital; 20:24 Drug: NS 0.9% 500 ml [sodium chloride 0.9 % intravenous solution] Route: IV; Rate: mb9 bolus; Site: left antecubital; 20:51 Drug: morphine 2 mg [morphine 2 mg/mL intravenous cartridge (1 mL)] Route: IVP; Site: mb9 left antecubital; 21:35 Follow up: Pain 10 Adult; Response: Confirmed pt not driving.; Pain is decreased mb9 21:31 Drug: Cephalexin 500 mg [cephalexin 250 mg capsule (2 caps)] Route: PO; mb9 21:31 Drug: oxyCODONE-acetaminophen 4 pack 1 packets [oxycodone-acetaminophen 5 mg-325 mg mb9 tablet (1 tabs)] {Co-Signature: [email or web address] (Lenora Ojeda RN).} Route: PO; 21:32 Drug: Ondansetron 4 mg [ondansetron HCl 4 mg tablet (1 tabs)] {Note: dispensed home mb9 with pt.} Route: PO; Signatures: Dispatcher [employer] EDMS Jeanette Olvera, SPECIAL DIET COOK SPECIAL DIET COOK ar3 Hoang Qureshi RN RN mbJocelin Mckenzie jls1 Alcira Holt MD MD fg Dickerson, Laura RN ld5 Lenora Ojeda RN [email or web address] The chart was reviewed and I authenticate all verbal orders and agree with the evaluation and treatment provided.Corrections: (The following items were deleted from the chart) 15:18 15:13 MRI-Spine, Thoracic with con+MR ordered. EDMS EDMS 15:23 15:11 MRI Screening Tool - Place on chart, inform RN ordered. fg ar3 Attachments: 12:52 [facility] [place] Agreement jls1 MTDD
--- NOTE | 2016-06-05 20:49 | REP ---
MRI of thoracic spine without contrast 06/04/2016 Indication: Fall, with thoracic spine pain Comparison: CT of the thoracic spine 06/04/2016 Technique: Sagittal and axial T1 and T2-weighted images were obtained of the thoracic spine. Additionally STIR sagittal images were also provided Findings: Posterior skin marker overlies the T3 disc level. There is no evidence of acute fracture or bone marrow edema. The there is mild disc space narrowing at T 7-8 with mild disc desiccation at this level. There is no posterior bulging disc or spinal cord compression. There is homogeneous signal intensity in the thoracic spinal cord. Conus medullaris terminates at the inferior endplate of L1. Impression: Negative study without fracture, bone marrow edema, or spinal cord contusion. Disc space narrowing and disc desiccation at T 7-8 without disc bulge or protrusion. No evidence of spinal cord compression. Signed by Kenzie Matias MD 06/05/2016 08:41 P
--- NOTE | 2016-06-06 23:11 | EDDOCDS ---
Physician Documentation [facility] Name: Mandie Carreon Age: 55 yrs Sex: Female : 1960 Arrival Date: 06/04/2016 Time: 11:30 Bed 19 Private MD: Disposition: 06/04/16 21:05 Discharged to Home/Self Care. Impression: Atypical facial pain, Fall (on) (from) unspecified stairs and steps. - Condition is Stable. - Discharge Instructions: Fall Prevention and Home Safety, [id number]. - Prescriptions for Keflex 500 mg Oral Capsule - take 1 capsule by ORAL route every 8 hours for 10 days; 30 capsule. Percocet 5- 325 mg Oral Tablet - take 1 tablet by ORAL route every 8 hours As needed MDD: 4 tabs; 15 tablet. Medrol (Joseph) 4 mg Oral Tablets, Dose Pack - take 1 Pack by ORAL route as directed - follow package instructions; 1 packet. - Medication Reconciliation, Local Pharmacy Hours form. - Follow up: Nikkie Munoz; When: Call to arrange an appointment; Reason: Continuance of care. - Problem is new. - Symptoms have worsened. - Notes: You have been evaluted after your fall. You had a deformity of the T1 superior endplate,compression, with a questionable deformity of T2 superior endplate. Because this was not seen on the MRI, it is likely not new or acute. The neurosurgeon suggests you keep your softcollar onas it may make your pain better and follow up with him next week. There is a questionable right zygomatic-maxillary fracture with some possible swelling and soft tissue gas. This is likely complicatedby your recent surgery. We would like you to follow up with yourOMFS surgeon, andwe would recommend you change your antibiotics to Keflex as suggested by our ENT physician. He also asks that you not blow your nose. Please return to the ED if your symptoms worsen and you are unable to make your follow upappointments. Historical: - Allergies: Darvocet-N 100 (Vomit); Tramadol HCl (itching); - Home Meds: 1. amoxicillin-pot clavulanate 875-125 mg Oral tab every 12 hours 2. ibuprofen 800 mg Oral tab 4 times per day 3. Nasal [place] 12 Hour 0.05 % nasal spry 2 times per day 4. oxycodone-acetaminophen 5-325 mg Oral tab every 6 hours 5. proAir HFA 2 puff as needed 6. Vitamin D2 50,000 unit oral cap 1 cap once wkly - PMHx: Bronchitis; - PSHx: oral surgery; - Social history: Smoking status: unknown if patient ever smoked tobacco. No barriers to communication noted, The patient speaks fluent Ukrainian. - Family history: No immediate family members are acutely ill. - : The pt / caregiver states he / she is not on anticoagulants. Home medication list is obtained from the facility [facility]. - Exposure Risk Screening:: Unable to Assess. 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 LMP N/A - Post-menopause mb9 Vital Signs: 11:38 BP 159 / 96; Pulse 91; Resp 26; Temp 98.2; Pulse Ox 100% ; mb9 11:47 Pulse 92 MON; Pulse Ox 100% ; mb9 11:47 BP 159 / 96 (auto/); mb9 12:07 Pulse 80 MON; Pulse Ox 97% ; mb9 12:07 BP 125 / 86 (auto/); mb9 12:22 Pulse 74 MON; mb9 12:22 BP 144 / 92 (auto/); mb9 12:37 Pulse 72 MON; Pulse Ox 96% ; mb9 12:37 BP 127 / 81 (auto/); mb9 12:52 Pulse 76 MON; Pulse Ox 98% ; mb9 12:52 BP 124 / 74 (auto/); mb9 13:07 Pulse 72 MON; Pulse Ox 98% ; mb9 13:07 BP 119 / 85 (auto/); mb9 13:22 Pulse 74 MON; Pulse Ox 97% ; mb9 13:22 BP 121 / 74 (auto/); mb9 13:37 Pulse 72 MON; Pulse Ox 99% ; mb9 13:37 BP 126 / 81 (auto/); mb9 13:52 Pulse 70 MON; Pulse Ox 98% ; mb9 13:52 BP 119 / 78 (auto/); mb9 14:07 Pulse 72 MON; Pulse Ox 98% ; mb9 14:07 BP 121 / 68 (auto/); mb9 14:22 Pulse 72 MON; Pulse Ox 99% ; mb9 14:22 BP 131 / 86 (auto/); mb9 14:37 Pulse 74 MON; Pulse Ox 99% ; mb9 14:37 BP 151 / 85 (auto/); mb9 14:44 Pain 4/10; mb9 14:52 Pulse 78 MON; Pulse Ox 99% ; mb9 14:52 BP 157 / 78 (auto/); mb9 15:07 Pulse 72 MON; Pulse Ox 99% ; mb9 15:07 BP 150 / 70 (auto/); mb9 15:22 Pulse 68 MON; mb9 15:22 BP 136 / 80 (auto/); mb9 15:38 Pulse 76 MON; mb9 16:43 Resp 18; Temp 97(O); ld5 16:53 BP 122 / 78 (auto/); mb9 16:55 BP 122 / 78; Pulse 72; Resp 16; Pulse Ox 99% on R/A; Pain 10/10; ld5 19:06 BP 134 / 70 (auto/); mb9 19:07 Pulse 68 MON; Pulse Ox 97% ; mb9 19:36 BP 122 / 78 (auto/); mb9 19:37 Pulse 72 MON; Pulse Ox 98% ; mb9 21:32 BP 135 / 84; Pulse 77; Resp 17; Temp 96(T); Pulse Ox 99% ; mb9 21:35 Pain 3/10; mb9 [place] Coma Score: 11:38 Eye Response: spontaneous(4). Verbal Response: confused(4). Motor Response: obeys mb9 commands(6). Total: 14. MDM: 11:58 CT Head Without Contrast Ordered. EDMS 11:59 CT Spine,Cervical W/o Contrast Ordered. EDMS 12:52 [facility] Payment Agreement was scanned into [employer] and attached to record. jls1 12:53 Financial registration complete. jls1 13:35 IV Saline Lock ordered. fg 13:35 Ondansetron 4 mg IVP once ordered. fg 13:35 CBC with Diff Ordered. EDMS 13:35 Basic Metabolic Profile Ordered. EDMS 13:38 morphine 4 mg IVP once ordered. fg 13:38 Spine, Thoracic 3 Views Ordered. EDMS 13:38 NOTHING BY MOUTH+DIET ordered. EDMS 13:40 CT Maxillofacial with contrast Ordered. EDMS 15:11 CT Spine,Thoracic W/o Contrast Ordered. EDMS 15:11 MRI Screening Tool - Place on chart, inform RN ordered. fg 15:11 Apply Cindy Collar to Patient. ordered. fg 15:13 -MRI-Spine,Thoracic without contrast Ordered. EDMS 15:35 MRI Screening Tool - Place on chart, inform RN complete. ar3 16:42 morphine 4 mg IVP once ordered. fg 16:42 Ondansetron 4 mg IVP once ordered. fg 20:14 Ondansetron 4 mg IVP once ordered. fg 20:14 NS 0.9% 500 ml IV at bolus once ordered. fg 20:40 morphine 2 mg IVP once ordered. fg 21:02 Cephalexin 500 mg PO once ordered. fg 21:12 oxyCODONE-acetaminophen 4 pack 5 mg-325 mg 1 packets PO once; Dispense with pt, take as fg per instruction on package ordered. 21:13 Ondansetron 4 mg PO once ordered. fg 06/05 17:21 T-Sheet-- Draft Copy was scanned into [employer] and attached to record. r Point of Care Testing: Blood Glucose: 06/04 12:09 Blood Glucose: 113 mg/dL; mb9 Ranges: Administered Medications: 13:50 Drug: Ondansetron 4 mg [ondansetron HCl 2 mg/mL intravenous solution (2 mL)] Route: mb9 IVP; Site: left antecubital; 14:44 Follow up: Response: Nausea is resolved mb9 13:50 Drug: morphine 4 mg [morphine 4 mg/mL intravenous cartridge (1 mL)] Route: IVP; Site: mb9 left antecubital; 14:44 Follow up: Pain 4/10 Adult; Response: Confirmed pt not driving.; Pain is decreased mb9 16:58 Drug: morphine 4 mg [morphine 4 mg/mL intravenous cartridge (1 mL)] Route: IVP; Site: ld5 left antecubital; 16:58 Drug: Ondansetron 4 mg [ondansetron HCl 2 mg/mL intravenous solution (2 mL)] Route: ld5 IVP; Site: left antecubital; 20:24 Drug: Ondansetron 4 mg [ondansetron HCl 2 mg/mL intravenous solution (2 mL)] Route: mb9 IVP; Site: left antecubital; 20:24 Drug: NS 0.9% 500 ml [sodium chloride 0.9 % intravenous solution] Route: IV; Rate: mb9 bolus; Site: left antecubital; 22:17 Follow up: IV Intake: 500ml mb9 20:51 Drug: morphine 2 mg [morphine 2 mg/mL intravenous cartridge (1 mL)] Route: IVP; Site: mb9 left antecubital; 21:35 Follow up: Pain 3/10 Adult; Response: Confirmed pt not driving.; Pain is decreased mb9 21:31 Drug: Cephalexin 500 mg [cephalexin 250 mg capsule (2 caps)] Route: PO; mb9 21:31 Drug: oxyCODONE-acetaminophen 4 pack 1 packets [oxycodone-acetaminophen 5 mg-325 mg mb9 tablet (1 tabs)] {Co-Signature: [email or web address] (Lenora Ojeda RN).} Route: PO; 21:32 Drug: Ondansetron 4 mg [ondansetron HCl 4 mg tablet (1 tabs)] {Note: dispensed home mb9 with pt.} Route: PO; Signatures: Dispatcher [employer] EDMS Jeanette Olvera, MARKETING DATA SPECIALIST MARKETING DATA SPECIALIST ar3 Hoang Qureshi RN RN mb9 Jocelin Ortez jls1 Alcira Holt MD MD fg Redder, Kathie klr Dickerson, Laura RN ld5 Lenora Ojeda RN [email or web address] The chart was reviewed and I authenticate all verbal orders and agree with the evaluation and treatment provided.Corrections: (The following items were deleted from the chart) 15:18 15:13 MRI-Spine, Thoracic with con+MR ordered. EDMS EDMS 15:23 15:11 MRI Screening Tool - Place on chart, inform RN ordered. fg ar3 Attachments: 12:52 [facility] [place] Agreement [email or web address] 06/05 17:21 T-Sheet-- Draft Copy klivette Chart Complete MTDD
--- NOTE | 2016-06-06 23:11 | EDDOCDS ---
Nurse's Notes [facility] Name: Mandie Carreon Age: 55 yrs Sex: Female : 1960 Arrival Date: 06/04/2016 Time: 11:30 Bed 19 Private MD: Diagnosis: Atypical facial pain;Fall (on) (from) unspecified stairs and steps Presentation: 06/04 11:38 Presenting complaint: EMS states: "We were called to the house after the pt fell in the mb9 shower and hit the right side of her head. She was hyperventilating when we got seen and complaining her arms and legs were numb". pt reports she had a tooth pulled on 05/30/16 and hasn't felt well since then. pt reports the fall but is unable to recall if she lost consciousness or not. The patient has an altered level of consciousness. The charge nurse has been notified. The patient has been moved to a treatment area. Mechanism of Injury: The problem was sustained at home, resulted from a fall. Adult Sepsis Screening: Patient has new or worsening altered mentation (1 point). Patient has a respiratory rate of greater than or equal to 22 (1 point). Systolic blood pressure is greater than 100. Patient has a qSOFA score of 2. No known or suspected infection- Negative Sepsis Screen. Suicide/Homicide risk assessment- the patient denies having any suicidal and/or homicidal ideations and does not present with any other emotional, behavioral or mental health complaints. 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 Transition of care: patient was not received from another setting of care. 11:38 Acuity: VICTOR M Level 2 mb9 11:38 Method Of Arrival: Ambulance 9 12:09 Care prior to arrival: Medications administered prior to arrival: zofran. mb9 Triage Assessment: 12:02 General: Appears distressed, Behavior is listless. Pain: Location: right cheek, right mb9 ear and right yazidi Unable to use pain scale. Patient is disoriented. when asked if she is having pain pt states, "Yes my mouth and my head". when asked to rate her pain pt appears to not understand. HIV screening NA for this visit Offered previously. Neurological: Level of Consciousness is confused, lethargic, Oriented to person, Appointment Specialist are weak bilaterally Weakness Speech is slurred, Facial symmetry appears normal, Pupils are PERRLA, Numbness in right arm, left arm, right leg and left leg pt reports numbness and tingling to her bilateral arms and legs. painful stimulus applied to bilateral hands and pt did not wince or withdraw from pain. . Neurological: Reports headache weakness. Neurological: pt appears to have tremors periodically while this RN is in the room . Respiratory: Airway is patent Respiratory effort is even, unlabored. 12:09 GI: Reports nausea, vomiting. 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 amoxicillin-pot clavulanate 875-125 mg Oral tab every 12 hours 2. ibuprofen 800 mg Oral tab 4 times per day 3. Nasal [place] 12 Hour 0.05 % nasal spry 2 times per day 4. oxycodone-acetaminophen 5-325 mg Oral tab every 6 hours 5. proAir HFA 2 puff as needed 6. Vitamin D2 50,000 unit oral cap 1 cap once wkly - PMHx: Bronchitis; - PSHx: oral surgery; - Social history: Smoking status: unknown if patient ever smoked tobacco. No barriers to communication noted, The patient speaks fluent Swiss. - Family history: No immediate family members are acutely ill. - : The pt / caregiver states he / she is not on anticoagulants. Home medication list is obtained from the facility [facility]. - Exposure Risk Screening:: Unable to Assess. Screenin:32 Screening information is obtained from the patient. Fall risk: No risks identified. mb9 Assistance ADL's: requires no assistance with activities of daily living. Abuse/DV Screen: The patient / caregiver reports he/she is: not in a situation that causes fear, pain or injury. Nutritional screening: No deficits noted. Advance Directives: There is no active DNR order. home support is adequate. Assessment: 13:02 Reassessment: Patient states symptoms have not improved. General: Behavior is mb9 cooperative. Pain: Location: right cheek, right ear and right yazidi Pain currently is 7 out of 10 on a pain scale. Respiratory: Airway is patent Respiratory effort is even, unlabored. GI: Reports vomiting. 13:16 General: Pt requesting new blankets due to vomit on her current blanket. Blankets ld5 provided. Pt denies any other needs at this time. Will continue to monitor. 14:00 Adult Sepsis Screening: Patient has new or worsening altered mentation (1 point). mb9 Patient's respiratory rate is less than 22. Systolic blood pressure is greater than 100. Patient has a qSOFA score of 1- Negative Sepsis Screen. 15:30 Reassessment: Patient states symptoms have improved. General: Appears in no apparent mb9 distress, Behavior is appropriate for age, cooperative. Pain: Location: right cheek, right ear and right yazidi Pain currently is 4 out of 10 on a pain scale. Respiratory: Airway is patent Respiratory effort is even, unlabored. 16:59 General: Pt assisted to commode. Upon standing from the commode to return to bed, pt ld5 stiffened up and stood still. This RN asked pt what she was experiencing and after a few seconds pt stated sharp pain to right yazidi. Pt assisted back to bed. Pt then reported nausea. Provider made aware and pt medicated per orders. Call manuel within reach. Will continue to monitor. 18:25 Adult Sepsis Screening: The patient does not have new or worsening altered mentation. mb9 Patient's respiratory rate is less than 22. Systolic blood pressure is greater than 100. Patient has a qSOFA score of 0- Negative Sepsis Screen. General: Appears in no apparent distress, Behavior is appropriate for age, cooperative. Respiratory: Airway is patent Respiratory effort is even, unlabored. 19:41 Reassessment: Patient appears in no apparent distress at this time. Patient states mb9 symptoms have improved. General: Appears in no apparent distress, comfortable, Behavior is appropriate for age, cooperative. Respiratory: Airway is patent Respiratory effort is even, unlabored. 20:22 General: Appears uncomfortable, Behavior is appropriate for age, cooperative. Pain: mb9 Location: right cheek, right ear, right yazidi and right jaw Pain currently is 6 out of 10 on a pain scale. GI: Reports vomiting. 21:32 Reassessment: Patient appears in no apparent distress at this time. Adult Sepsis mb9 Screening: The patient does not have new or worsening altered mentation. Patient's respiratory rate is less than 22. Systolic blood pressure is greater than 100. Patient has a qSOFA score of 0- Negative Sepsis Screen. General: Appears in no apparent distress, comfortable, Behavior is appropriate for age, cooperative. Respiratory: Airway is patent Respiratory effort is even, unlabored. Vital Signs: 11:38 BP 159 / 96; Pulse 91; Resp 26; Temp 98.2; Pulse Ox 100% ; mb9 11:47 Pulse 92 MON; Pulse Ox 100% ; mb9 11:47 BP 159 / 96 (auto/); mb9 12:07 Pulse 80 MON; Pulse Ox 97% ; mb9 12:07 BP 125 / 86 (auto/); mb9 12:22 Pulse 74 MON; mb9 12:22 BP 144 / 92 (auto/); mb9 12:37 Pulse 72 MON; Pulse Ox 96% ; mb9 12:37 BP 127 / 81 (auto/); mb9 12:52 Pulse 76 MON; Pulse Ox 98% ; mb9 12:52 BP 124 / 74 (auto/); mb9 13:07 Pulse 72 MON; Pulse Ox 98% ; mb9 13:07 BP 119 / 85 (auto/); mb9 13:22 Pulse 74 MON; Pulse Ox 97% ; mb9 13:22 BP 121 / 74 (auto/); mb9 13:37 Pulse 72 MON; Pulse Ox 99% ; mb9 13:37 BP 126 / 81 (auto/); mb9 13:52 Pulse 70 MON; Pulse Ox 98% ; mb9 13:52 BP 119 / 78 (auto/); mb9 14:07 Pulse 72 MON; Pulse Ox 98% ; mb9 14:07 BP 121 / 68 (auto/); mb9 14:22 Pulse 72 MON; Pulse Ox 99% ; mb9 14:22 BP 131 / 86 (auto/); mb9 14:37 Pulse 74 MON; Pulse Ox 99% ; mb9 14:37 BP 151 / 85 (auto/); mb9 14:44 Pain 4/10; mb9 14:52 Pulse 78 MON; Pulse Ox 99% ; mb9 14:52 BP 157 / 78 (auto/); mb9 15:07 Pulse 72 MON; Pulse Ox 99% ; mb9 15:07 BP 150 / 70 (auto/); mb9 15:22 Pulse 68 MON; mb9 15:22 BP 136 / 80 (auto/); mb9 15:38 Pulse 76 MON; mb9 16:43 Resp 18; Temp 97(O); ld5 16:53 BP 122 / 78 (auto/); mb9 16:55 BP 122 / 78; Pulse 72; Resp 16; Pulse Ox 99% on R/A; Pain 10/10; ld5 19:06 BP 134 / 70 (auto/); mb9 19:07 Pulse 68 MON; Pulse Ox 97% ; mb9 19:36 BP 122 / 78 (auto/); mb9 19:37 Pulse 72 MON; Pulse Ox 98% ; mb9 21:32 BP 135 / 84; Pulse 77; Resp 17; Temp 96(T); Pulse Ox 99% ; mb9 21:35 Pain 3/10; mb9 Vitals: 11:38 Log In Time N/A - ambulance arrival. mb9 Mack Coma Score: 11:38 Eye Response: spontaneous(4). Verbal Response: confused(4). Motor Response: obeys mb9 commands(6). Total: 14. ED Course: 11:31 Patient visited by Jeanette Olvera PCA. ar3 11:31 Patient moved to Waiting ar3 11:31 Patient moved to 19 ar3 11:53 Triage Initiated mb9 12:04 Alcira Holt MD is Attending Physician. fg 12:04 Patient visited by Alcira Holt MD. fg 12:11 Maintain field IV. Dressing intact. Good blood return noted. Site clean & dry. Gauge & mb9 site: 20 gauge left ac. 12:52 [facility] Payment Agreement was scanned into [employer] and attached to record. jls1 13:02 Patient visited by Hoang Qureshi RN. mb9 13:17 Patient visited by Kelsey Aguilar RN. ld5 14:34 CT Head Without Contrast Returned. EDMS 14:34 CT Spine,Cervical W/o Contrast Returned. EDMS 14:41 Patient visited by Alcira Holt MD. fg 16:00 Patient visited by Kim Nobles PCA. rs6 16:00 Patient moved to MRI rs6 16:25 Patient moved to 19 dem1 16:55 Spine, Thoracic 3 Views Returned. EDMS 17:02 Patient visited by Kelsey Aguilar,ANA MARIA. ld5 17:44 CT Spine,Thoracic W/o Contrast Returned. EDMS 17:44 CT Maxillofacial with contrast Returned. EDMS 18:24 Patient visited by Hoang Qureshi RN. mb9 19:09 Patient visited by Hoang Qureshi RN. mb9 20:10 Patient visited by Hoang Qureshi RN. mb9 21:02 Nikkie Munoz is Referral Physician. fg 21:32 The patient / caregiver is instructed regarding the plan of care and ED course. mb9 21:32 Discontinued IV lock intact, bleeding controlled, pressure dressing applied. No mb9 procedures done that require assistance. 06/05 17:21 T-Sheet-- Draft Copy was scanned into [employer] and attached to record. klr 20:58 -MRI-Spine,Thoracic without contrast Returned. EDMS Administered Medications: 06/04 13:50 Drug: Ondansetron 4 mg [ondansetron HCl 2 mg/mL intravenous solution (2 mL)] Route: mb9 IVP; Site: left antecubital; 14:44 Follow up: Response: Nausea is resolved mb9 13:50 Drug: morphine 4 mg [morphine 4 mg/mL intravenous cartridge (1 mL)] Route: IVP; Site: mb9 left antecubital; 14:44 Follow up: Pain 4/10 Adult; Response: Confirmed pt not driving.; Pain is decreased mb9 16:58 Drug: morphine 4 mg [morphine 4 mg/mL intravenous cartridge (1 mL)] Route: IVP; Site: ld5 left antecubital; 16:58 Drug: Ondansetron 4 mg [ondansetron HCl 2 mg/mL intravenous solution (2 mL)] Route: ld5 IVP; Site: left antecubital; 20:24 Drug: Ondansetron 4 mg [ondansetron HCl 2 mg/mL intravenous solution (2 mL)] Route: mb9 IVP; Site: left antecubital; 20:24 Drug: NS 0.9% 500 ml [sodium chloride 0.9 % intravenous solution] Route: IV; Rate: mb9 bolus; Site: left antecubital; 22:17 Follow up: IV Intake: 500ml mb9 20:51 Drug: morphine 2 mg [morphine 2 mg/mL intravenous cartridge (1 mL)] Route: IVP; Site: mb9 left antecubital; 21:35 Follow up: Pain 3/10 Adult; Response: Confirmed pt not driving.; Pain is decreased mb9 21:31 Drug: Cephalexin 500 mg [cephalexin 250 mg capsule (2 caps)] Route: PO; mb9 21:31 Drug: oxyCODONE-acetaminophen 4 pack 1 packets [oxycodone-acetaminophen 5 mg-325 mg mb9 tablet (1 tabs)] {Co-Signature: [email or web address] (Lenora Ojeda RN).} Route: PO; 21:32 Drug: Ondansetron 4 mg [ondansetron HCl 4 mg tablet (1 tabs)] {Note: dispensed home mb9 with pt.} Route: PO; Point of Care Testing: Blood Glucose: 12:09 Blood Glucose: 113 mg/dL; mb9 Ranges: Intake: 22:17 IV: 500.00ml; Total: 500.00ml. mb9 Order Results: Lab Order: Fingerstick Blood Sugar; SPEC'M 06/04/16 11:49 Test: BEDSIDE GLUCOSE; Value: 113; Range: 70-105; Abnormal: Above high normal; Units: MG/DL; Status: F Lab Order: CBC with Diff; SPEC'M 06/04/16 13:58 Test: WHITE BLOOD COUNT; Value: 8.5; Range: 4.0-10.0; Units: K/mm3; Status: F Test: RED BLOOD COUNT; Value: 3.94; Range: 4.00-5.40; Abnormal: Below low normal; Units: M/mm3; Status: F Test: HEMOGLOBIN; Value: 11.4; Range: 12.0-16.0; Abnormal: Below low normal; Units: g/dl; Status: F Test: HEMATOCRIT; Value: 33.8; Range: 36.0-47.0; Abnormal: Below low normal; Units: %; Status: F Test: MEAN CORPUSCULAR VOLUME; Value: 85.9; Range: 80.0-96.0; Units: fl; Status: F Test: MEAN CORPUSCULAR HEMOGLOBIN; Value: 29.0; Range: 27.0-33.0; Units: pg; Status: F Test: MEAN CORPUSCULAR HGB CONC; Value: 33.8; Range: 32.0-36.5; Units: g/dl; Status: F Test: RED CELL DISTRIBUTION WIDTH; Value: 13.5; Range: 11.5-14.5; Units: %; Status: F Test: PLATELET COUNT, AUTOMATED; Value: 164; Range: 150-450; Units: k/mm3; Status: F Test: NEUTROPHILS %; Value: 79.1; Range: 36.0-66.0; Abnormal: Above high normal; Units: %; Status: F Test: LYMPH %; Value: 14.6; Range: 24.0-44.0; Abnormal: Below low normal; Units: %; Status: F Test: MONO %; Value: 4.4; Range: 0.0-5.0; Units: %; Status: F Test: EOS %; Value: 0.4; Range: 0.0-3.0; Units: %; Status: F Test: BASO %; Value: 0.3; Range: 0.0-1.0; Units: %; Status: F Test: LARGE UNSTAINED CELL %; Value: 1.1; Range: 0.0-4.0; Units: %; Status: F Test: NEUTROPHILS #; Value: 6.7; Range: 1.8-7.7; Units: K/mm3; Status: F Test: LYMPH #; Value: 1.3; Range: 1.5-4.5; Abnormal: Below low normal; Units: K/mm3; Status: F Test: MONO #; Value: 0.4; Range: 0.0-0.8; Units: K/mm3; Status: F Test: EOS #; Value: 0.0; Range: 0.0-0.50; Units: K/mm3; Status: F Test: BASO #; Value: 0.0; Range: 0.0-0.2; Units: K/mm3; Status: F Test: LARGE UNSTAINED CELL #; Value: 0.1; Range: 0.0-0.4; Units: K/mm3; Status: F Lab Order: Basic Metabolic Profile; SPEC'M 06/04/16 13:58 Test: GLUCOSE, FASTING; Value: 100; Range: 70-105; Units: MG/DL; Status: F Test: BLOOD UREA NITROGEN; Value: 7; Range: 7-18; Units: MG/DL; Status: F Test: CREATININE FOR GFR; Value: 0.66; Range: 0.55-1.02; Units: MG/DL; Status: F Test: GLOMERULAR FILTRATION RATE; Value: > 60.0; Range: >51; Status: F Test: SODIUM LEVEL; Value: 142; Range: 136-145; Units: MEQ/L; Status: F Test: POTASSIUM SERUM; Value: 3.8; Range: 3.5-5.1; Units: MEQ/L; Status: F Test: CHLORIDE LEVEL; Value: 106; Range: 98-107; Units: MEQ/L; Status: F Test: CARBON DIOXIDE LEVEL; Value: 29; Range: 21-32; Units: MEQ/L; Status: F Test: ANION GAP; Value: 7; Range: 8-16; Abnormal: Below low normal; Units: MEQ/L; Status: F Test: CALCIUM LEVEL; Value: 8.7; Range: 8.5-10.1; Units: MG/DL; Status: F Test Note: ; Units are mL/min/1.73 m2 Chronic Kidney Disease Staging per NKF: Stage I & II GFR >=60 Normal to Mildly Decreased Stage III GFR 30-59 Moderately Decreased Stage IV GFR 15-29 Severely Decreased Stage V GFR <15 Very Little GFR Left ESRD GFR <15 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 Bone window settings demonstrate; an intact bony calvarium. No skull fracture is appreciated. No intraorbital; abnormality is seen. There is some maxillary sinus mucosal thickening visible on; the right. There are several bubbles of soft tissue gas adjacent to the; zygomatic maxillary complex on the right and there is a suggestion of a right; anterior zygomatic arch fracture at this location. No other fracture is; appreciated.; ; On soft tissue window settings, the lateral, third, and fourth ventricles are; normal in size and position. Forbes-white differentiation pattern is normal above; and below the tentorium. There is no evidence of intracranial hemorrhage. No; infarction, extra-axial fluid collection, mass, edema or midline shift is seen.; ; Impression:; ; Right sided facial fracture at the zygomatico-maxillary complex with some; adjacent deep facial soft tissue gas. Mucosal thickening right maxillary sinus.; No evidence of skull fracture or intracranial injury seen. Otherwise negative; noncontrast head CT.; ; ; Signed by; Jace Roy MD 06/04/2016 02:39 P; Radiology Order: CT Spine,Cervical W/o Contrast Test: CT Spine,Cervical W/o Contrast REASON FOR EXAMINATION: fall; CT cervical spine without contrast 06/04/2016:; ; Indication: Fall.; ; Comparison: CT cervical spine 10/24/15.; ; Technique: 2 mm contiguous spiral axial sections performed through the cervical; spine without contrast.; ; Findings: Cervical spine is without acute fracture or displacement. Slight; irregularity is noted within the superior endplates of T1 and T2 vertebral; bodies. Irregularity within the superior endplate of T1 represents interval; change. T2 was previously not included in view on prior study. Some are; consistent with small superior endplate compression fractures, stable and without; retropulsion.; ; Lung apices are clear bilaterally.; ; Impression:; ; No evidence of cervical spine fracture or prevertebral soft tissue swelling.; ; Small superior endplate compression fractures with less than 10% diminished; vertebral body height noted at T1 and T2. There is no retropulsion. The; posterior elements are intact at these levels.; ; ; ; ; ; ; ; ; Signed by; Kenzie Matias MD 06/06/2016 10:48 A; Radiology Order: Spine, Thoracic 3 Views Test: Spine, Thoracic 3 Views REASON FOR EXAMINATION: thorcic spine pain after fall; The thoracic spine three views:; ; Comparison is 05/23/2008.; ; There is mild scoliosis convex left, unchanged.; ; Vertebral body heights, interspacing alignment are normal. There are no; compression deformities or listhesis.; ; The pedicles are unremarkable. There are no lytic, blastic or destructive; changes.; ; Impression:; ; Mild scoliosis, otherwise negative thoracic spine. No interval change.; ; ; Signed by; Ori Pettit MD 06/04/2016 04:42 P; Radiology Order: CT Maxillofacial with contrast Test: CT Maxillofacial with contrast REASON FOR EXAMINATION: r facial pain after oral surgery and fall; Maxillofacial CT with IV contrast:; ; There are no comparison studies.; ; There are a air or gas pockets within the soft tissues lateral to the right; maxilla. This could be postsurgical change or could represent infection. The; skeletal structures of the maxilla and mandible are obscured from beam hardening; artifact secondary to dental amalgam.; ; A portion of the right maxillary wall posteriorly is discontinuous. There is; circumferential mucosal thickening in the right maxillary sinus. Mucosal; thickening just superior to the defect in the posterior wall contains a small; focal air collection.; ; The left maxillary sinus is unremarkable. The sphenoid sinuses, ethmoid sinuses; and frontal sinuses are unremarkable.; ; There is mucoid impaction of the right ostiomeatal complex. The left ostiomeatal; complex is patent.; ; There is no nasal bone fracture. There is no orbit fracture. The zygomatic; fracture. The visualized mastoid air cells are clear.; ; Impression:; ; There are air collections in the soft tissues lateral to the right maxilla,; postsurgical versus infection.; ; There is circumferential mucosal edema in the right maxillary sinus. There is a; defect in the posterior wall of the right maxillary sinus. There is a focal air; collection in the edematous mucosa adjacent to the defect.; ; There is mucosal impaction of the right ostiomeatal complex.; ; The maxilla and mandible are obscured by beam-hardening artifact from dental; amalgam.; ; ; Signed by; Ori Pettit MD 06/04/2016 05:23 P; Radiology Order: CT Spine,Thoracic W/o Contrast Test: CT Spine,Thoracic W/o Contrast REASON FOR EXAMINATION: fall, t spine pain; CT of the thoracic spine:; ; Axial images are acquired helical scanning in the reformatted sagittal coronal; projections.; ; Comparison is the CT of the cervical spine performed earlier today.; ; There is grade 1 compression deformity of the T1 superior endplate, similar to; the CT study earlier today. No retropulsed fragments are identified.; ; There is questionable compression deformity of the T2 superior endplate; anteriorly. No retropulsed fragments.; ; The remainder of the thoracic vertebral body heights and alignment are normal.; There is no listhesis. No posterior element fractures are identified. No; evidence of hemothorax or pneumothorax is seen the visualized lung rico. 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 This is partially visualized on the study today.; ; Impression: Grade 1 compression deformity of the T1 superior endplate without; retropulsed fragment; ; Questionable compression deformity of the T2 superior endplate anteriorly with no; retropulsed fragments.; ; ; Signed by; Ori Pettit MD 06/04/2016 05:10 P; Radiology Order: -MRI-Spine,Thoracic without contrast Test: -MRI-Spine,Thoracic without contrast REASON FOR EXAMINATION: t spine pain after fall; MRI of thoracic spine without contrast 06/04/2016; ; Indication: Fall, with thoracic spine pain; ; Comparison: CT of the thoracic spine 06/04/2016; ; Technique: Sagittal and axial T1 and T2-weighted images were obtained of the; thoracic spine. Additionally STIR sagittal images were also provided; ; Findings: Posterior skin marker overlies the T3 disc level. There is no; evidence of acute fracture or bone marrow edema. The there is mild disc space; narrowing at T 7-8 with mild disc desiccation at this level. There is no; posterior bulging disc or spinal cord compression.; ; There is homogeneous signal intensity in the thoracic spinal cord. Conus; medullaris terminates at the inferior endplate of L1.; ; Impression:; ; Negative study without fracture, bone marrow edema, or spinal cord contusion.; ; Disc space narrowing and disc desiccation at T 7-8 without disc bulge or; protrusion. No evidence of spinal cord compression.; ; ; Signed by; Kenzie Matias MD 06/05/2016 08:41 P; Outcome: 21:05 Discharge ordered by Provider. fg 21:32 Discharge Assessment: Patient awake, alert and oriented x 3. No cognitive and/or mb9 functional deficits noted. Patient verbalized understanding of disposition instructions. patient administered narcotics - yes. Pt provided with safe discharge. The following High Risk Discharge criteria are identified: None. Discharged to home ambulatory, with family. Condition: good Condition: stable Condition: improved. CT Study completed. MRI Study completed. Property :Personal belongings accompany Pt. 22:10 Patient left the ED. mb9 Signatures: Dispatcher [employer] EDMS Jeanette Olvera, BEAN SORTER BEAN SORTER ar3 Kelsey AguilarRN RN ld5 Compa Alves1 Hoang Qureshi RN RN mb9 Kim Nobles, BEAN SORTER BEAN SORTER rs6 Jocelin Ortez jls1 Alcira Holt MD MD Dianne Vigil RN [email or web address] Corrections: (The following items were deleted from the chart) 16:43 16:43 Temp 97F Oral; ld5 ld5 Chart Complete MTDD
--- NOTE | 2016-06-06 23:11 | EDDOCDS ---
Physician Documentation [facility] Name: Mandie Carreon Age: 55 yrs Sex: Female : 1960 Arrival Date: 06/04/2016 Time: 11:30 Bed 19 Private MD: Disposition: 06/04/16 21:05 Discharged to Home/Self Care. Impression: Atypical facial pain, Fall (on) (from) unspecified stairs and steps. - Condition is Stable. - Discharge Instructions: Fall Prevention and Home Safety, [id number]. - Prescriptions for Keflex 500 mg Oral Capsule - take 1 capsule by ORAL route every 8 hours for 10 days; 30 capsule. Percocet 5- 325 mg Oral Tablet - take 1 tablet by ORAL route every 8 hours As needed MDD: 4 tabs; 15 tablet. Medrol (Joseph) 4 mg Oral Tablets, Dose Pack - take 1 Pack by ORAL route as directed - follow package instructions; 1 packet. - Medication Reconciliation, Local Pharmacy Hours form. - Follow up: Nikkie Munoz; When: Call to arrange an appointment; Reason: Continuance of care. - Problem is new. - Symptoms have worsened. - Notes: You have been evaluted after your fall. You had a deformity of the T1 superior endplate,compression, with a questionable deformity of T2 superior endplate. Because this was not seen on the MRI, it is likely not new or acute. The neurosurgeon suggests you keep your softcollar onas it may make your pain better and follow up with him next week. There is a questionable right zygomatic-maxillary fracture with some possible swelling and soft tissue gas. This is likely complicatedby your recent surgery. We would like you to follow up with yourOMFS surgeon, andwe would recommend you change your antibiotics to Keflex as suggested by our ENT physician. He also asks that you not blow your nose. Please return to the ED if your symptoms worsen and you are unable to make your follow upappointments. Historical: - Allergies: Darvocet-N 100 (Vomit); Tramadol HCl (itching); - Home Meds: 1. amoxicillin-pot clavulanate 875-125 mg Oral tab every 12 hours 2. ibuprofen 800 mg Oral tab 4 times per day 3. Nasal [place] 12 Hour 0.05 % nasal spry 2 times per day 4. oxycodone-acetaminophen 5-325 mg Oral tab every 6 hours 5. proAir HFA 2 puff as needed 6. Vitamin D2 50,000 unit oral cap 1 cap once wkly - PMHx: Bronchitis; - PSHx: oral surgery; - Social history: Smoking status: unknown if patient ever smoked tobacco. No barriers to communication noted, The patient speaks fluent Maori. - Family history: No immediate family members are acutely ill. - : The pt / caregiver states he / she is not on anticoagulants. Home medication list is obtained from the facility JUL. - Exposure Risk Screening:: Unable to Assess. DIAMOND SELECTOR: 06/04 12:09 LMP N/A - Post-menopause mb9 Vital Signs: 11:38 BP 159 / 96; Pulse 91; Resp 26; Temp 98.2; Pulse Ox 100% ; mb9 11:47 Pulse 92 MON; Pulse Ox 100% ; mb9 11:47 BP 159 / 96 (auto/); mb9 12:07 Pulse 80 MON; Pulse Ox 97% ; mb9 12:07 BP 125 / 86 (auto/); mb9 12:22 Pulse 74 MON; mb9 12:22 BP 144 / 92 (auto/); mb9 12:37 Pulse 72 MON; Pulse Ox 96% ; mb9 12:37 BP 127 / 81 (auto/); mb9 12:52 Pulse 76 MON; Pulse Ox 98% ; mb9 12:52 BP 124 / 74 (auto/); mb9 13:07 Pulse 72 MON; Pulse Ox 98% ; mb9 13:07 BP 119 / 85 (auto/); mb9 13:22 Pulse 74 MON; Pulse Ox 97% ; mb9 13:22 BP 121 / 74 (auto/); mb9 13:37 Pulse 72 MON; Pulse Ox 99% ; mb9 13:37 BP 126 / 81 (auto/); mb9 13:52 Pulse 70 MON; Pulse Ox 98% ; mb9 13:52 BP 119 / 78 (auto/); mb9 14:07 Pulse 72 MON; Pulse Ox 98% ; mb9 14:07 BP 121 / 68 (auto/); mb9 14:22 Pulse 72 MON; Pulse Ox 99% ; mb9 14:22 BP 131 / 86 (auto/); mb9 14:37 Pulse 74 MON; Pulse Ox 99% ; mb9 14:37 BP 151 / 85 (auto/); mb9 14:44 Pain 4/10; mb9 14:52 Pulse 78 MON; Pulse Ox 99% ; mb9 14:52 BP 157 / 78 (auto/); mb9 15:07 Pulse 72 MON; Pulse Ox 99% ; mb9 15:07 BP 150 / 70 (auto/); mb9 15:22 Pulse 68 MON; mb9 15:22 BP 136 / 80 (auto/); mb9 15:38 Pulse 76 MON; mb9 16:43 Resp 18; Temp 97(O); ld5 16:53 BP 122 / 78 (auto/); mb9 16:55 BP 122 / 78; Pulse 72; Resp 16; Pulse Ox 99% on R/A; Pain 10/10; ld5 19:06 BP 134 / 70 (auto/); mb9 19:07 Pulse 68 MON; Pulse Ox 97% ; mb9 19:36 BP 122 / 78 (auto/); mb9 19:37 Pulse 72 MON; Pulse Ox 98% ; mb9 21:32 BP 135 / 84; Pulse 77; Resp 17; Temp 96(T); Pulse Ox 99% ; mb9 21:35 Pain 3/10; mb9 [place] Coma Score: 11:38 Eye Response: spontaneous(4). Verbal Response: confused(4). Motor Response: obeys mb9 commands(6). Total: 14. MDM: 11:58 CT Head Without Contrast Ordered. EDMS 11:59 CT Spine,Cervical W/o Contrast Ordered. EDMS 12:52 [facility] Payment Agreement was scanned into Sun[employer] and attached to record. jls1 12:53 Financial registration complete. jls1 13:35 IV Saline Lock ordered. fg 13:35 Ondansetron 4 mg IVP once ordered. fg 13:35 CBC with Diff Ordered. EDMS 13:35 Basic Metabolic Profile Ordered. EDMS 13:38 morphine 4 mg IVP once ordered. fg 13:38 Spine, Thoracic 3 Views Ordered. EDMS 13:38 NOTHING BY MOUTH+DIET ordered. EDMS 13:40 CT Maxillofacial with contrast Ordered. EDMS 15:11 CT Spine,Thoracic W/o Contrast Ordered. EDMS 15:11 MRI Screening Tool - Place on chart, inform RN ordered. fg 15:11 Apply Cindy Collar to Patient. ordered. fg 15:13 -MRI-Spine,Thoracic without contrast Ordered. EDMS 15:35 MRI Screening Tool - Place on chart, inform RN complete. ar3 16:42 morphine 4 mg IVP once ordered. fg 16:42 Ondansetron 4 mg IVP once ordered. fg 20:14 Ondansetron 4 mg IVP once ordered. fg 20:14 NS 0.9% 500 ml IV at bolus once ordered. fg 20:40 morphine 2 mg IVP once ordered. fg 21:02 Cephalexin 500 mg PO once ordered. fg 21:12 oxyCODONE-acetaminophen 4 pack 5 mg-325 mg 1 packets PO once; Dispense with pt, take as fg per instruction on package ordered. 21:13 Ondansetron 4 mg PO once ordered. fg 06/05 17:21 T-Sheet-- Draft Copy was scanned into [employer] and attached to record. r Point of Care Testing: Blood Glucose: 06/04 12:09 Blood Glucose: 113 mg/dL; mb9 Ranges: Administered Medications: 13:50 Drug: Ondansetron 4 mg [ondansetron HCl 2 mg/mL intravenous solution (2 mL)] Route: mb9 IVP; Site: left antecubital; 14:44 Follow up: Response: Nausea is resolved mb9 13:50 Drug: morphine 4 mg [morphine 4 mg/mL intravenous cartridge (1 mL)] Route: IVP; Site: mb9 left antecubital; 14:44 Follow up: Pain 4/10 Adult; Response: Confirmed pt not driving.; Pain is decreased mb9 16:58 Drug: morphine 4 mg [morphine 4 mg/mL intravenous cartridge (1 mL)] Route: IVP; Site: ld5 left antecubital; 16:58 Drug: Ondansetron 4 mg [ondansetron HCl 2 mg/mL intravenous solution (2 mL)] Route: ld5 IVP; Site: left antecubital; 20:24 Drug: Ondansetron 4 mg [ondansetron HCl 2 mg/mL intravenous solution (2 mL)] Route: mb9 IVP; Site: left antecubital; 20:24 Drug: NS 0.9% 500 ml [sodium chloride 0.9 % intravenous solution] Route: IV; Rate: mb9 bolus; Site: left antecubital; 22:17 Follow up: IV Intake: 500ml mb9 20:51 Drug: morphine 2 mg [morphine 2 mg/mL intravenous cartridge (1 mL)] Route: IVP; Site: mb9 left antecubital; 21:35 Follow up: Pain 3/10 Adult; Response: Confirmed pt not driving.; Pain is decreased mb9 21:31 Drug: Cephalexin 500 mg [cephalexin 250 mg capsule (2 caps)] Route: PO; mb9 21:31 Drug: oxyCODONE-acetaminophen 4 pack 1 packets [oxycodone-acetaminophen 5 mg-325 mg mb9 tablet (1 tabs)] {Co-Signature: [email or web address] (Lenora Ojeda RN).} Route: PO; 21:32 Drug: Ondansetron 4 mg [ondansetron HCl 4 mg tablet (1 tabs)] {Note: dispensed home mb9 with pt.} Route: PO; Signatures: Dispatcher [employer] EDMS Jeanette Olvera, PBX MECHANIC PBX MECHANIC ar3 Hoang Qureshi RN RN mb9 Jocelin Ortez jls1 Alcira Holt MD MD fg Redder, Kathie klr Dickerson, Laura RN ld5 Lenora Ojeda RN [email or web address] The chart was reviewed and I authenticate all verbal orders and agree with the evaluation and treatment provided.Corrections: (The following items were deleted from the chart) 15:18 15:13 MRI-Spine, Thoracic with con+MR ordered. EDMS EDMS 15:23 15:11 MRI Screening Tool - Place on chart, inform RN ordered. fg ar3 Attachments: 12:52 [facility] Payment Agreement [email or web address] 06/05 17:21 T-Sheet-- Draft Copy klivette Chart Complete MTDD
--- NOTE | 2016-06-09 10:03 | HPE ---
DATE OF ADMISSION: 06/08/2016 The patient is a 55-year-old female who was showering today and slipped and fell hitting the right side of her face. She had had previous dental surgery five days ago. She is complaining of pain on that side. Examination shows that there is some reduction of range of motion of her mandible and tenderness over the right side of her face, over the zygomatic arch and maxilla. I reviewed the CT scan which shows an undisplaced fracture of the maxilla. The patient presents with an undisplaced facial fracture. No management is necessary. The patient has already been seen by ophthalmology and been told everything is fine. I have asked her to avoid blowing her nose and she should be on an antibiotic for a week.
== END 2016-06-04 22:10 | disposition home or self-care (01) ==
LOC: M ED 11:30
DX: S02.40EA Zygomatic fracture, right side, initial encounter for closed fracture (principal); W18.2XXA Fall in (into) shower or empty bathtub, initial encounter; Y92.89 Other specified places as the place of occurrence of the external cause; Y93.E1 Activity, personal bathing and showering; Y99.8 Other external cause status; L03.211 Cellulitis of face; M43.8X4 Other specified deforming dorsopathies, thoracic region; R11.10 Vomiting, unspecified; Z98.890 Other specified postprocedural states; Z88.5 Allergy status to narcotic agent
CPT/HCPCS: 70450; 70487; 72072; 72125; 72128; 72146; 80048; 85025; 96374; 96375; 96376; 99284; J2405; Q9967

== ENCOUNTER → 2016-07-22 | Outpatient (CLI) | payer MEDICARE, MEDICAID ==
[~2016-07-22] VITALS: Ht 165.1 cm; Wt 66.7 kg
[~2016-07-22] MED LIST: ALEV220T26 PO; DRIS50002 PO; GABA-279 PO; LIDOCAINE 2% INJ 100 MG/5 ML SDV (FOR ANES.) As Ordered ONE; MIRA33504 PO; NS 1,000 ML IV SCH; OMEP40CA2 PO; OXYC1TAB23 PO; PROPOFOL 200 MG/20 ML VIAL As Ordered ONE
--- NOTE | 2016-07-22 15:33 | ROOR ---
Patient Name: Mandie Carreon Procedure Date: 07/22/2016 3:21 PM Date of : 1960 Age: 55 Room: [facility] Gender: Female Note Status: Finalized Procedure: Upper GI endoscopy Indications: Heartburn Providers: Mat MCCURDY MD Referring MD: MNI ZHAO Requesting Provider: Medicines: Monitored Anesthesia Care Complications: No immediate complications. Procedure: Pre-Anesthesia Assessment: - The heart rate, respiratory rate, oxygen saturations, blood pressure, adequacy of pulmonary ventilation, and response to care were monitored throughout the procedure. The Endoscope was introduced through the mouth, and advanced to the second part of duodenum. The upper GI endoscopy was accomplished without difficulty. The patient tolerated the procedure well. Findings: Moderately severe esophagitis was found at the gastroesophageal junction. A medium-sized hiatal hernia was present. The entire examined stomach was normal. The examined duodenum was normal. Impression: - Moderately severe reflux esophagitis. - Medium-sized hiatal hernia. - Normal stomach. - Normal examined duodenum. - No specimens collected. Recommendation: - Use Prilosec (omeprazole) 40 mg PO daily. Mat Mccurdy MD Mat MCCURDY MD 07/22/2016 3:33:21 PM This report has been signed electronically. Number of Addenda: 0 Note Initiated On: 07/22/2016 3:21 PM Estimated Blood Loss: Estimated blood loss: none.
--- NOTE | 2016-07-22 15:44 | ROOR ---
Patient Name: Mandie Carreon Procedure Date: 07/22/2016 3:22 PM Date of : 1960 Age: 55 Room: [facility] Gender: Female Note Status: Finalized Procedure: Colonoscopy Indications: Screening for colorectal malignant neoplasm Providers: Mat MCCURDY MD Referring MD: MIN ZHAO Requesting Provider: Medicines: Monitored Anesthesia Care Complications: No immediate complications. Procedure: Pre-Anesthesia Assessment: - The heart rate, respiratory rate, oxygen saturations, blood pressure, adequacy of pulmonary ventilation, and response to care were monitored throughout the procedure. The Colonoscope was introduced through the anus and advanced to the cecum, identified by appendiceal orifice and ileocecal valve. The colonoscopy was performed without difficulty. The patient tolerated the procedure well. The quality of the bowel preparation was good. Findings: The perianal and digital rectal examinations were normal. Internal hemorrhoids were found during retroflexion. The hemorrhoids were medium-sized. The entire examined colon appeared normal on direct and retroflexion views. Impression: - Internal hemorrhoids. - The entire colon is normal on direct and retroflexion views. - No specimens collected. Recommendation: - Repeat colonoscopy in 10 years for screening purposes. Mat Mccurdy MD Mat MCCURDY MD 07/22/2016 3:44:14 PM This report has been signed electronically. Number of Addenda: 0 Note Initiated On: 07/22/2016 3:22 PM Estimated Blood Loss: Estimated blood loss: none.
[2016-07-22 16:24] VITALS: BP 138/81
== END | disposition home or self-care (01) ==
LOC: M OPP 10:24
PROVIDERS: ATTEND Internal Medicine Gastroenterology
DX: Z12.11 Encounter for screening for malignant neoplasm of colon (principal); K64.8 Other hemorrhoids; R12 Heartburn; K44.9 Diaphragmatic hernia without obstruction or gangrene; K21.0 Gastro-esophageal reflux disease with esophagitis; D64.9 Anemia, unspecified; F41.9 Anxiety disorder, unspecified; Z78.0 Asymptomatic menopausal state; Z88.8 Allergy status to other drugs, medicaments and biological substances; Z79.899 Other long term (current) drug therapy
CPT/HCPCS: 43235; 99156; 99157; G0121

== ENCOUNTER → 2016-08-02 | Outpatient (CLI) | payer MEDICARE, OTHER, MEDICAID ==
[~2016-08-02] MED LIST changes: -LIDOCAINE 2% INJ 100 MG/5 ML SDV (FOR ANES.) As Ordered ONE; -NS 1,000 ML IV SCH; -PROPOFOL 200 MG/20 ML VIAL As Ordered ONE
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
== END ==
LOC: M PAIN 11:20
PROVIDERS: ATTEND Nurse Practitioner Family
DX: G50.0 Trigeminal neuralgia (principal); G43.909 Migraine, unspecified, not intractable, without status migrainosus; F31.9 Bipolar disorder, unspecified; F25.9 Schizoaffective disorder, unspecified; Z88.5 Allergy status to narcotic agent; Z88.8 Allergy status to other drugs, medicaments and biological substances; Z79.891 Long term (current) use of opiate analgesic; Z79.899 Other long term (current) drug therapy; Z86.59 Personal history of other mental and behavioral disorders

== ENCOUNTER 2016-10-10 16:20 | Emergency (ER) | payer OTHER, MEDICARE, MEDICAID ==
[~2016-10-10] VITALS: Ht 162.6 cm; Wt 68.0 kg
[2016-10-10] MEDS ORDERED: ARIP1TAB PO (16:37)
[2016-10-10] MEDS ORDERED: FLUO20CA9 PO (16:37)
--- NOTE | 2016-10-10 18:39 | REP ---
Clinical: Trauma. Technique: AP, lateral, bilateral oblique and coned-down views of the lumbosacral spine. Comparison: 01/22/2015. Findings: Alignment and lordosis maintained. No acute fracture / compression injury or subluxation. Mild to moderate multilevel degenerative changes are noted including anterior spurring, endplate sclerosis and hypertrophic facet changes. Impression: Mild to moderate multilevel degenerative changes. No acute fracture / compression injury or subluxation. Signed by Aleksey Goode MD 10/10/2016 06:31 P
--- NOTE | 2016-10-10 18:40 | REP ---
Clinical: Trauma. Technique: Lateral and oblique views of the sternum. Findings: No obvious acute sternal fracture or subluxation is appreciated. Impression: No obvious acute sternal fracture or subluxation. Signed by Aleksey Goode MD 10/10/2016 06:32 P
--- NOTE | 2016-10-10 18:41 | REP ---
Clinical: Trauma. Technique: AP view of the pelvis with neutral and frog lateral views of the right hip. Findings: Frontal view of the pelvis demonstrates age-related changes without acute fracture or dislocation. The hip joints are symmetric. Two views of the right hip demonstrates no acute fracture dislocation. Impression: Age-related changes. No acute fracture or dislocation. Signed by Aleksey Goode MD 10/10/2016 06:33 P
--- NOTE | 2016-10-10 18:42 | REP ---
Clinical: Trauma . Comparison: 03/12/2015 . Technique: PA and lateral. Findings: The mediastinum and cardiac silhouette are normal. The lung rico are clear and without acute consolidation, effusion, or pneumothorax. The skeletal structures are intact and normal. Impression: 1. No acute cardiopulmonary process. Signed by Aleksey Goode MD 10/10/2016 06:33 P
--- NOTE | 2016-10-10 18:43 | REP ---
Clinical: Trauma. Comparison: 06/04/2016 Technique: AP, lateral, and swimmers views. Findings: Alignment and kyphosis is maintained. Vertebral bodies intact. No acute fracture / compression injury or subluxation. No degenerative changes. Paravertebral soft tissues are normal. Impression: Normal thoracic spine series. No acute fracture / compression injury or subluxation. Signed by Aleksey Goode MD 10/10/2016 06:34 P
[2016-10-10 18:51] VITALS: BP 144/88
== END 2016-10-10 18:59 | disposition home or self-care (01) ==
LOC: M ED 17:32
DX: S23.3XXA Sprain of ligaments of thoracic spine, initial encounter (principal); S33.5XXA Sprain of ligaments of lumbar spine, initial encounter; S70.01XA Contusion of right hip, initial encounter; S20.219A Contusion of unspecified front wall of thorax, initial encounter; V49.59XA Passenger injured in collision with other motor vehicles in traffic accident, initial encounter; Y92.481 Parking lot as the place of occurrence of the external cause; Y93.89 Activity, other specified; Y99.8 Other external cause status; F41.9 Anxiety disorder, unspecified; Z78.0 Asymptomatic menopausal state; Z79.899 Other long term (current) drug therapy; Z88.5 Allergy status to narcotic agent; Z88.8 Allergy status to other drugs, medicaments and biological substances

== ENCOUNTER → 2016-11-21 | Outpatient (CLI) | payer MEDICARE, MEDICAID ==
[~2016-11-21] MED LIST changes: +ARIP1TAB; +ARIP1TAB PO; +CLEO300C2 PO; +FLUO20CA19 PO; +GABA-282; +PERC5TAB12 PO; +PROAAER10
[2016-11-21 12:07] LABS: BASO % 0.1 % (0.0-1.0); EOS % 0.5 % (0.0-3.0); LYMPH # 1.4 K/mm3 (1.5-4.5); LYMPH % 19.8 % (24.0-44.0); MEAN CORPUSCULAR HEMOGLOBIN 30.6 pg (27.0-33.0); MEAN CORPUSCULAR HGB CONC 34.9 g/dl (32.0-36.5); MEAN CORPUSCULAR VOLUME 87.7 fl (80.0-96.0); MONO # 0.3 K/mm3 (0.0-0.8); MONO % 3.9 % (0.0-5.0); NEUTROPHILS # 4.8 K/mm3 (1.8-7.7); NEUTROPHILS % 74.7 % (36.0-66.0); RED CELL DISTRIBUTION WIDTH 13.5 % (11.5-14.5); WHITE BLOOD COUNT 6.5 K/mm3 (4.0-10.0)
[2016-11-21 13:55] LABS: ALBUMIN 3.8 GM/DL (3.2-5.2); ALBUMIN/GLOBULIN RATIO 1.06 (1.00-1.93); ALKALINE PHOSPHATASE 103 U/L (45-117); ALT/SGPT 17 U/L (12-78); ANION GAP 4 MEQ/L (8-16); AST/SGOT 9 U/L (15-37); BILIRUBIN,TOTAL 0.4 MG/DL (0.2-1.0); BLOOD UREA NITROGEN 9 MG/DL (7-18); CALCIUM LEVEL 9.1 MG/DL (8.5-10.1); CARBON DIOXIDE LEVEL 28 MEQ/L (21-32); CHLORIDE LEVEL 111 MEQ/L (98-107); CHOLESTEROL LEVEL 194 MG/DL (<200); CREATININE FOR GFR 0.73 MG/DL (0.55-1.02); GLOMERULAR FILTRATION RATE > 60.0 (>51); GLUCOSE, FASTING 101 MG/DL (70-105); POTASSIUM SERUM 4.8 MEQ/L (3.5-5.1); SODIUM LEVEL 143 MEQ/L (136-145); TOTAL PROTEIN 7.4 GM/DL (6.4-8.2); TRIGLYCERIDES LEVEL 114 MG/DL (<150)
== END ==
LOC: M LAB 11:26
PROVIDERS: ATTEND Physician Assistant Medical
DX: E78.2 Mixed hyperlipidemia (principal); E55.9 Vitamin D deficiency, unspecified

== ENCOUNTER 2016-12-11 14:18 | Emergency (ER) | payer MEDICARE, MEDICAID ==
[~2016-12-11] VITALS: Ht 162.6 cm; Wt 154.0 kg
[~2016-12-11 14:18] MED LIST changes: -ARIP1TAB; -CLEO300C2 PO; -GABA-282; -PERC5TAB12 PO; -PROAAER10
[2016-12-11 14:19] VITALS: BP 123/79
[2016-12-11] MEDS ORDERED: PERC5TAB12 PO (14:41)
[2016-12-11] MEDS ORDERED: CLEO300C2 PO (14:41)
== END 2016-12-11 14:53 | disposition home or self-care (01) ==
LOC: M ED 14:18
DX: R22.0 Localized swelling, mass and lump, head (principal)

== ENCOUNTER 2016-12-14 09:13 | Emergency (ER) | payer MEDICARE, MEDICAID ==
[~2016-12-14] VITALS: Ht 162.6 cm; Wt 154.0 kg
[~2016-12-14 09:13] MED LIST changes: +CLEO300C2 PO; +PERC5TAB12 PO
[2016-12-14] MEDS ORDERED: GABA-282 (09:24)
[2016-12-14] MEDS ORDERED: ARIP1TAB (09:24)
[2016-12-14] MEDS ORDERED: PROAAER10 (09:24)
[2016-12-14 11:40] LABS: BASO % 0.3 % (0.0-1.0); EOS % 0.7 % (0.0-3.0); LARGE UNSTAINED CELL # 0.1 K/mm3 (0.0-0.4); LARGE UNSTAINED CELL % 0.9 % (0.0-4.0); LYMPH % 15.1 % (24.0-44.0); MEAN CORPUSCULAR HEMOGLOBIN 30.2 pg (27.0-33.0); MEAN CORPUSCULAR HGB CONC 35.2 g/dl (32.0-36.5); MEAN CORPUSCULAR VOLUME 85.8 fl (80.0-96.0); MONO # 0.3 K/mm3 (0.0-0.8); MONO % 4.1 % (0.0-5.0); NEUTROPHILS % 78.9 % (36.0-66.0); PLATELET COUNT, AUTOMATED 168 k/mm3 (150-450); RED CELL DISTRIBUTION WIDTH 13.1 % (11.5-14.5); WHITE BLOOD COUNT 6.3 K/mm3 (4.0-10.0)
--- NOTE | 2016-12-14 11:40 | REP ---
AP portable chest: 12/14/2016 Comparison chest x-ray 10/10/2016, 03/12/2015. Clinical history: Dyspnea and cough. Lungs are well inflated. The CP angles are sharply defined. There is no effusion, lateral pleural thickening, apical scarring or pneumothorax. No dense consolidation, atelectasis or mass. The heart, mediastinal and hilar contours are normal. The aorta and airway intact. Bony thorax shows no focal lesion. Impression: 1. No acute cardiopulmonary change. Signed by Fadi Hammond MD 12/14/2016 07:06 P
[2016-12-14 11:57] LABS: ANION GAP 8 MEQ/L (8-16); BLOOD UREA NITROGEN 8 MG/DL (7-18); CALCIUM LEVEL 9.1 MG/DL (8.5-10.1); CARBON DIOXIDE LEVEL 28 MEQ/L (21-32); CHLORIDE LEVEL 110 MEQ/L (98-107); CREATININE FOR GFR 0.67 MG/DL (0.55-1.02); GLOMERULAR FILTRATION RATE > 60.0 (>51); GLUCOSE, FASTING 101 MG/DL (70-105); POTASSIUM SERUM 3.7 MEQ/L (3.5-5.1); SODIUM LEVEL 146 MEQ/L (136-145)
[2016-12-14] MEDS ORDERED: ISOVUE-370 76% 100ML VIAL (Q9967) As Ordered ONE (13:07)
--- NOTE | 2016-12-14 14:07 | ECGEPIP ---
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
--- NOTE | 2016-12-14 14:11 | REP ---
CT NECK WITH CONTRAST: HISTORY: Difficulty breathing. CONTRAST: Isovue 370, 75 mL. A BB was placed on the subcutaneous tissue overlying the left zygoma. The examination is very limited secondary to motion. The nasopharynx and subglottic trachea are normal in appearance. Extensive artifact is present in the larissa- and hypopharynx and larynx. There is no definite abnormality. Degenerative change is present in the cervical spine. The lung apices are clear. Minimal mucosal thickening is present in the maxillary sinuses. IMPRESSION: Limited examination demonstrating no definite abnormality. Signed by Stefan Huntley MD 12/14/2016 02:15 P
[2016-12-14 14:38] VITALS: BP 120/60
== END 2016-12-14 15:00 | disposition home or self-care (01) ==
LOC: EDBD 09:13 → M ED 09:13
DX: R06.09 Other forms of dyspnea (principal); J98.01 Acute bronchospasm; R41.9 Unspecified symptoms and signs involving cognitive functions and awareness; Z88.8 Allergy status to other drugs, medicaments and biological substances; Z79.899 Other long term (current) drug therapy
CPT/HCPCS: 36415; 70491; 71010; 80048; 82550; 82553; 84484; 85025; 93005; 93041; 94760; 99285; Q9967

== ENCOUNTER → 2017-01-27 | Outpatient (CLI) | payer MEDICARE, MEDICAID ==
[~2017-01-27] MED LIST changes: +ARIP1TAB; +GABA-282; +PROAAER10
--- NOTE | 2017-01-27 09:50 | REP ---
Clinical: Generalized abdominal pain. Technique: Real time hull scale ultrasound examination using curved array transducer. Findings: Liver demonstrates mild fatty infiltration and two adjacent hepatic cysts (versus bilobed septated cyst) measuring 3.5 x 2.8 x 3.1 cm and 3.4 x 2.4 x 3.7 cm. No significant hepatic lesion is otherwise identified. Spleen and pancreas are normal in contour, size, echogenicity without focal splenic or pancreatic lesions identified. The gallbladder is normal and without gallstones, wall thickening, or pericholecystic fluid. No biliary ductal dilatation is appreciated and the common bile duct measures 3.6 mm diameter. The bilateral kidneys are normal in reniform shape and appear mildly echogenic suggesting chronic medical renal disease. The right kidney measures 12.3 x 5.8 x 6.2 cm with mild hydronephrosis and no evidence for nephrolithiasis, cystic or mass lesion. The left kidney measures 11.8 x 7.9 x 6.2 cm without hydronephrosis, nephrolithiasis, cystic or mass lesion. The abdominal aorta demonstrates atherosclerotic changes and measures 2.2 cm maximal diameter. No ascites. Impression: 1. Two adjacent simple hepatic cysts versus bilobed septated cyst in the right lobe appears otherwise benign. 2. Kidneys demonstrate increased parenchymal echogenicity suggesting medical renal disease along with mild right hydronephrosis. Signed by Aleksey Goode MD 01/27/2017 09:42 A
== END ==
LOC: M RAD 08:25
PROVIDERS: ATTEND Physician Assistant Medical
DX: R10.84 Generalized abdominal pain (principal)

== ENCOUNTER → 2017-02-08 | Outpatient (CLI) | payer MEDICARE, MEDICAID ==
[2017-02-08 10:40] LABS: BASO % 0.2 % (0.0-1.0); EOS % 0.2 % (0.0-3.0); IMMATURE GRANULOCYTE % 0.2 % (0-0); LYMPH # 1.2 10^3/uL (1.5-4.5); LYMPH % 22.3 % (24.0-44.0); MEAN CORPUSCULAR HEMOGLOBIN 29.3 pg (27.0-33.0); MEAN CORPUSCULAR HGB CONC 33.9 g/dl (32.0-36.5); MEAN CORPUSCULAR VOLUME 86.5 fl (80.0-96.0); MONO # 0.2 10^3/uL (0.0-0.8); MONO % 4.1 % (0.0-5.0); NEUTROPHILS # 3.9 10^3/uL (1.8-7.7); RED CELL DISTRIBUTION WIDTH 13.5 % (11.5-14.5); WHITE BLOOD COUNT 5.4 10^3/uL (4.0-10.0)
[2017-02-08 11:30] LABS: VITAMIN B12 LEVEL 393 PG/ML (247-911)
[2017-02-08 11:34] LABS: ALBUMIN/GLOBULIN RATIO 1.08 (1.00-1.93); ALKALINE PHOSPHATASE 87 U/L (45-117); ALT/SGPT 17 U/L (12-78); ANION GAP 5 MEQ/L (8-16); AST/SGOT 12 U/L (15-37); BILIRUBIN,TOTAL 0.6 MG/DL (0.2-1.0); BLOOD UREA NITROGEN 10 MG/DL (7-18); CARBON DIOXIDE LEVEL 30 MEQ/L (21-32); CHLORIDE LEVEL 107 MEQ/L (98-107); CREATININE FOR GFR 0.75 MG/DL (0.55-1.02); FERRITIN 98 NG/ML (8-252); GLOMERULAR FILTRATION RATE > 60.0 (>51); GLUCOSE, FASTING 133 MG/DL (70-105); POTASSIUM SERUM 3.8 MEQ/L (3.5-5.1); SODIUM LEVEL 142 MEQ/L (136-145); TOTAL PROTEIN 7.7 GM/DL (6.4-8.2)
[2017-02-09 12:21] LABS: ALBUMIN 4.53 GM/DL (3.29-5.55); ALBUMIN % 58.8 % (55.8-66.1); GAMMA GLOBULIN % 17.2 % (11.1-18.8)
[2017-02-10 00:08] LABS: Lyme Disease IgG/IgM Antibodie <0.91 ISR (0.00-0.90); Lyme Disease IgM Ab Quantitati <0.80 index (0.00-0.79)
== END ==
LOC: M LAB 09:37
PROVIDERS: ATTEND Physician Assistant Medical
DX: R53.83 Other fatigue (principal)

== ENCOUNTER → 2017-02-15 | Outpatient (CLI) | payer MEDICARE, MEDICAID ==
[~2017-02-15] MED LIST changes: +GASTROGRAFIN SOLUTION 30ML (Q9963) As Ordered ONE; +ISOVUE-370 76% 100ML VIAL (Q9967) As Ordered ONE
--- NOTE | 2017-02-15 13:59 | REP ---
CT of the abdomen and pelvis with IV and bowel contrast: CT of the chest dated 03/12/2015 identified a bilobed cyst in the right lobe of the liver measuring 5.8 by 3.7 cm. This cysts again identified on the study today and measures 5.2 x 3.7 cm. Complete abdomen ultrasound in 01/27/2017 identified by the mild right hydronephrosis. There is no hydronephrosis on the right on the left on the CT study today. There are focal zones of cortical atrophy of the left kidney compatible with sequelae of prior pyelonephritis or renal infarct or combination. The left renal cortex is unremarkable. There are no renal calculi. The gallbladder, pancreas, spleen, adrenals and abdominal aorta are unremarkable. There is no bowel distension. Mesentery is unremarkable. Pelvis: The appendix is normal. The uterus, adnexa and urinary bladder are unremarkable. There is no adenopathy or ascites. There is descending colon diverticulosis without diverticulitis. Impression: There is no hydronephrosis. There are focal zones of right renal cortical atrophy compatible with sequela of pyelonephritis or renal infarct. There is no hydronephrosis. There are no renal masses or cysts. There is a bilobed hepatic cyst, not significantly changed. Signed by Ori Pettit MD 02/15/2017 01:50 P
== END ==
LOC: M RAD 10:52
PROVIDERS: ATTEND Physician Assistant Medical
DX: R19.7 Diarrhea, unspecified (principal)
CPT/HCPCS: 74177; Q9963; Q9967

== ENCOUNTER → 2017-05-02 | Outpatient (CLI) | payer OTHER ==
[~2017-05-02] MED LIST changes: -GASTROGRAFIN SOLUTION 30ML (Q9963) As Ordered ONE; -ISOVUE-370 76% 100ML VIAL (Q9967) As Ordered ONE
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
== END ==
LOC: M RAD 12:48
PROVIDERS: ATTEND Physician Assistant Medical
DX: M54.5 Low back pain (principal); M47.816 Spondylosis without myelopathy or radiculopathy, lumbar region; M47.817 Spondylosis without myelopathy or radiculopathy, lumbosacral region

== ENCOUNTER → 2017-05-23 | Outpatient (REF) | payer MEDICARE, MEDICAID | LOC: M LAB REF 19:19 | DX: R35.0 Frequency of micturition (principal) | CPT/HCPCS: 87088 ==

== ENCOUNTER → 2017-05-30 | Outpatient (CLI) | payer MEDICARE, MEDICAID | LOC: M RAD 12:15 | DX: N18.1 Chronic kidney disease, stage 1 (principal); R35.0 Frequency of micturition | CPT/HCPCS: 76857 ==

== ENCOUNTER → 2017-07-28 | Outpatient (CLI) | payer MEDICARE, OTHER, MEDICAID ==
[2017-07-28 16:24] LABS: HEPATITIS B SURFACE ANTIGEN NEGATIVE (NEGATIVE)
[2017-07-28 16:51] LABS: HEPATITIS C VIRUS ABY INDEX 0.1 INDEX (<0.8)
[2017-07-28 16:52] LABS: HIV 1&2 SCREEN CENTAUR NEGATIVE (NEGATIVE)
== END ==
LOC: M WHC 09:17
DX: Z12.31 Encounter for screening mammogram for malignant neoplasm of breast (principal); Z01.419 Encounter for gynecological examination (general) (routine) without abnormal findings (principal); Z78.0 Asymptomatic menopausal state; Z92.0 Personal history of contraception; Z11.3 Encounter for screening for infections with a predominantly sexual mode of transmission; N30.01 Acute cystitis with hematuria; Z79.899 Other long term (current) drug therapy
CPT/HCPCS: 87340

== ENCOUNTER → 2017-07-28 | Outpatient (REF) | payer MEDICARE, OTHER, MEDICAID ==
[2017-07-28 17:23] LABS: CHLAMYDIA DNA AMPLIFICATION NEGATIVE (NEGATIVE); GC DNA AMPLIFICATION NEGATIVE (NEGATIVE)
== END ==
LOC: M SFHCWAGY 09:47
DX: Z01.419 Encounter for gynecological examination (general) (routine) without abnormal findings (principal); Z11.3 Encounter for screening for infections with a predominantly sexual mode of transmission; Z79.899 Other long term (current) drug therapy
CPT/HCPCS: 87186

== ENCOUNTER 2017-10-17 10:04 | Emergency (ER) | payer OTHER, MEDICARE, MEDICAID | END 2017-10-17 12:50 | disposition home or self-care (01) | LOC: M ED 10:04 | DX: S60.222A Contusion of left hand, initial encounter (principal); G89.29 Other chronic pain; M54.9 Dorsalgia, unspecified; R53.83 Other fatigue; E03.9 Hypothyroidism, unspecified; Z79.899 Other long term (current) drug therapy; Z88.5 Allergy status to narcotic agent; Z88.8 Allergy status to other drugs, medicaments and biological substances | CPT/HCPCS: 71046 ==

== ENCOUNTER → 2017-10-17 | Outpatient (CLI) | payer MEDICARE, MEDICAID ==
[2017-10-17 13:59] LABS: HEMATOCRIT 32.5 % (36.0-47.0); HEMOGLOBIN 11.3 g/dl (12.0-15.5); MEAN CORPUSCULAR HEMOGLOBIN 29.8 pg (27.0-33.0); MEAN CORPUSCULAR HGB CONC 34.8 g/dl (32.0-36.5); MEAN CORPUSCULAR VOLUME 85.8 fl (80.0-96.0); PLATELET COUNT, AUTOMATED 145 10^3/uL (150-450); RED BLOOD COUNT 3.79 10^6/uL (4.00-5.40); RED CELL DISTRIBUTION WIDTH 13.2 % (11.5-14.5); WHITE BLOOD COUNT 7.3 10^3/uL (4.0-10.0)
[2017-10-17 14:16] LABS: TOTAL 25(OH) VITAMIN D 43.8 NG/ML (30.0-100.0)
[2017-10-17 14:24] LABS: ALBUMIN 3.9 GM/DL (3.2-5.2); ALBUMIN/GLOBULIN RATIO 1.15 (1.00-1.93); ALKALINE PHOSPHATASE 85 U/L (45-117); ALT/SGPT 16 U/L (12-78); ANION GAP 7 MEQ/L (8-16); AST/SGOT 11 U/L (7-37); BILIRUBIN,TOTAL 0.6 MG/DL (0.2-1.0); BLOOD UREA NITROGEN 7 MG/DL (7-18); CALCIUM LEVEL 8.8 MG/DL (8.5-10.1); CARBON DIOXIDE LEVEL 26 MEQ/L (21-32); CHLORIDE LEVEL 113 MEQ/L (98-107); CHOLESTEROL LEVEL 183 MG/DL (<200); CHOLESTEROL RISK RATIO 3.734 (<5); CREATININE FOR GFR 0.64 MG/DL (0.55-1.30); GLOMERULAR FILTRATION RATE > 60.0 (>51); GLUCOSE, FASTING 96 MG/DL (70-100); HDL CHOLESTEROL 49 MG/DL (>40); LDL CHOLESTEROL 115.6 MG/DL (<100); NON-HDL-C 134 MG/DL; POTASSIUM SERUM 3.9 MEQ/L (3.5-5.1); SODIUM LEVEL 146 MEQ/L (136-145); TOTAL PROTEIN 7.3 GM/DL (6.4-8.2); TRIGLYCERIDES LEVEL 92 MG/DL (<150)
[2017-10-17 14:33] LABS: ESTIMATED AVERAGE GLUCOSE 108 MG/DL (60-110); HEMOGLOBIN A1c 5.4 %
== END ==
LOC: M LAB 13:08
DX: D50.9 Iron deficiency anemia, unspecified (principal); R53.83 Other fatigue; E03.9 Hypothyroidism, unspecified

== ENCOUNTER → 2017-11-06 | Outpatient (CLI) | payer OTHER, MEDICARE, MEDICAID | LOC: M RAD 10:45 | DX: M47.812 Spondylosis without myelopathy or radiculopathy, cervical region (principal) | CPT/HCPCS: 72141 ==

== ENCOUNTER → 2017-12-06 | Outpatient (CLI) | payer MEDICARE, MEDICAID | LOC: M RAD 11:40 | DX: M25.571 Pain in right ankle and joints of right foot (principal) | CPT/HCPCS: 73610 ==

== ENCOUNTER → 2017-12-12 | Outpatient (REF) | payer MEDICARE, MEDICAID ==
[2017-12-12 18:21] LABS: FERRITIN 96 NG/ML (8-252); IRON (FE) 69 UG/DL (50-170); PERCENT SATURATION 23.3 % (13.2-45.0); TOTAL IRON BINDING CAPACITY 296 UG/DL (250-450)
== END ==
LOC: M LAB REF 17:24
DX: D64.9 Anemia, unspecified (principal)
CPT/HCPCS: 83550

== ENCOUNTER → 2017-12-13 | Outpatient (CLI) | payer OTHER, MEDICARE, MEDICAID | LOC: M PAIN 10:00 | DX: M53.3 Sacrococcygeal disorders, not elsewhere classified (principal); M54.5 Low back pain; G43.909 Migraine, unspecified, not intractable, without status migrainosus; F31.9 Bipolar disorder, unspecified; F25.9 Schizoaffective disorder, unspecified; Z79.899 Other long term (current) drug therapy; Z88.5 Allergy status to narcotic agent; Z88.8 Allergy status to other drugs, medicaments and biological substances; Z86.59 Personal history of other mental and behavioral disorders; Z91.81 History of falling | CPT/HCPCS: G0463 ==

== ENCOUNTER → 2018-03-28 | Outpatient (CLI) | payer OTHER, MEDICARE, MEDICAID | LOC: M PAIN 14:00 | DX: M46.1 Sacroiliitis, not elsewhere classified (principal); G89.29 Other chronic pain; G43.909 Migraine, unspecified, not intractable, without status migrainosus; Z79.899 Other long term (current) drug therapy; Z88.5 Allergy status to narcotic agent; Z88.8 Allergy status to other drugs, medicaments and biological substances; Z86.59 Personal history of other mental and behavioral disorders | CPT/HCPCS: G0463 ==

== ENCOUNTER → 2018-05-21 | Outpatient (CLI) | payer OTHER, MEDICARE, MEDICAID ==
[~2018-05-21] MED LIST changes: +BUPIVACAINE HCL 0.25% 30 ML VIAL As Ordered ONE; -DRIS50002 PO; +DRIS50003 PO; +GABA-1171 PO; -GABA-279 PO; -GABA-282; +GABA-843; +ISOVUE-M 300 61% 15ML VIAL (Q9967) As Ordered ONE; +LIDOCAINE 1% SDV INJ 30 ML VIAL As Ordered ONE; +MIDAZOLAM INJ 2 MG/2 ML VIAL (J2250) As Ordered ONE; +NAPR-885 PO; +ONDANSETRON 4MG/2ML VIAL (J2405) As Ordered ONE; +ROBA500T PO; +TRIAMCINOLONE ACETONIDE SUSP 40 MG/ML VIAL (J3301) As Ordered ONE; +fentaNYL 100 MCG/2 ML INJECTION (J3010) As Ordered ONE
--- NOTE | 2018-05-21 15:09 | REP ---
PARTIAL SI JOINT SERIES: Bilateral study four views. Limited exam intraprocedural. 32 seconds of fluoroscopy time is reported. FINDINGS: A sequence of four last image hold fluoroscopically obtained spot radiographs of the SI joints document needle positions and contrast injection associated with bilateral SI joint injection procedure. Electronically Signed by Jace Roy MD 05/21/2018 07:42 P
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
== END ==
LOC: M PAIN 13:00
PROVIDERS: ATTEND Anesthesiology
DX: G89.29 Other chronic pain (principal); M46.1 Sacroiliitis, not elsewhere classified; M53.88 Other specified dorsopathies, sacral and sacrococcygeal region; G43.909 Migraine, unspecified, not intractable, without status migrainosus; F31.9 Bipolar disorder, unspecified; F25.9 Schizoaffective disorder, unspecified; Z79.899 Other long term (current) drug therapy; Z88.5 Allergy status to narcotic agent; Z88.8 Allergy status to other drugs, medicaments and biological substances; Z86.59 Personal history of other mental and behavioral disorders
CPT/HCPCS: 99152; G0260; J2250; J2405; J3010; J3301; Q9967

== ENCOUNTER → 2018-07-06 | Outpatient (CLI) | payer OTHER, MEDICARE, MEDICAID ==
[~2018-07-06] MED LIST changes: -BUPIVACAINE HCL 0.25% 30 ML VIAL As Ordered ONE; -ISOVUE-M 300 61% 15ML VIAL (Q9967) As Ordered ONE; -LIDOCAINE 1% SDV INJ 30 ML VIAL As Ordered ONE; -MIDAZOLAM INJ 2 MG/2 ML VIAL (J2250) As Ordered ONE; -ONDANSETRON 4MG/2ML VIAL (J2405) As Ordered ONE; -TRIAMCINOLONE ACETONIDE SUSP 40 MG/ML VIAL (J3301) As Ordered ONE; -fentaNYL 100 MCG/2 ML INJECTION (J3010) As Ordered ONE
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
== END ==
LOC: M PAIN 11:00
PROVIDERS: ATTEND Nurse Practitioner Family
DX: M53.3 Sacrococcygeal disorders, not elsewhere classified (principal); M54.5 Low back pain; G43.909 Migraine, unspecified, not intractable, without status migrainosus; Z79.899 Other long term (current) drug therapy; Z88.5 Allergy status to narcotic agent; Z88.8 Allergy status to other drugs, medicaments and biological substances; Z86.59 Personal history of other mental and behavioral disorders

== ENCOUNTER → 2018-07-30 | Outpatient (CLI) | payer MEDICARE, OTHER, MEDICAID ==
--- NOTE | 2018-07-30 11:27 | REPMRS ---
Patient History The patient states she had a clinical breast exam in 07/2018. Patient is postmenopausal. No known family history of cancer. Took hormonal contraceptives for 5 years. Taking estrogen for 1 year. 3D TOMOSYNTHESIS WAS PERFORMED. Digital Woman Screen Mammo: July 30, 2018 - Exam #: [id number] Bilateral CC and MLO view(s) were taken. Technologist: Cassie Arreola, Technologist Prior study comparison: July 28, 2017, digital woman screen mammo performed at [facility]. April 26, 2016, digital woman screen mammo performed at [facility]. FINDINGS: The breast tissue is heterogeneously dense. This may lower the sensitivity of mammography. There has been no change in the appearance of the mammogram from the prior studies. There is a moderate amount of residual fibroglandular tissue which is fairly symmetric. There is no interval development of dominant mass, areas of architectural distortion, or clustered microcalcification typical of malignancy. Assessment: BI-RADS/ACR category 1 mammogram. Negative Mammogram. Recommendation Routine screening mammogram in 1 year (for women over age 40). This mammogram was interpreted with the aid of an FDA-approved computer-aided dectection system. Electronically Signed By: Ori Forbes MD 07/30/18 [id number]
== END ==
LOC: M WHC 09:58
PROVIDERS: ATTEND Nurse Practitioner Family
DX: Z12.31 Encounter for screening mammogram for malignant neoplasm of breast (principal); Z78.0 Asymptomatic menopausal state; Z92.0 Personal history of contraception; Z92.23 Personal history of estrogen therapy
CPT/HCPCS: 77063; 77067; G0463

== ENCOUNTER → 2018-09-07 | Outpatient (CLI) | payer OTHER, MEDICAID ==
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
== END ==
LOC: M PAIN 09:45
PROVIDERS: ATTEND Nurse Practitioner Family
DX: M53.3 Sacrococcygeal disorders, not elsewhere classified (principal); M54.5 Low back pain; G43.909 Migraine, unspecified, not intractable, without status migrainosus; Z79.899 Other long term (current) drug therapy; Z88.5 Allergy status to narcotic agent; Z88.8 Allergy status to other drugs, medicaments and biological substances; Z86.59 Personal history of other mental and behavioral disorders

== ENCOUNTER → 2018-09-13 | Outpatient (CLI) | payer MEDICARE, MEDICAID ==
[~2018-09-13] MED LIST changes: +E-Z-GAS II EFFERVESCENT PACKET (SODIUM BICARB./CITRIC ACID/SIMETHICONE) As Ordered ONE; +E-Z-HD 98% w/w 340GM SUSP BTL As Ordered ONE; +E-Z-PAQUE 96% w/w SUSP 176GM BTL As Ordered ONE
--- NOTE | 2018-09-14 11:17 | REP ---
Upper GI air contrast The procedure was performed under the direct supervision of Dr. Forbes. The images were reviewed with Dr. Forbes The boiler control technician film shows no organomegaly or pathological masses. The intestinal gas pattern is non-specific. Liquid barium and gas producing crystals were given in the erect position as well as liquid barium in the prone oblique position in order to perform a double contrast upper GI examination. The oral and pharyngeal stages of deglutition are unremarkable. Esophageal transport is prompt and efficient. There is no stricture identified. There is a small sliding-type hiatal hernia. There is mucosal irregularity at the GE junction with a possible small ulcer. There is gastroesophageal reflux demonstrated to the level of the elsi. The stomach driver are normally outlined . The rugal folds are smooth and regular. There is no gastritis neoplasm or ulcer disease. The duodenal driver are normally outlined . The mucosal folds are smooth and regular. There is no duodenitis pancreatitis peptic ulcer disease or neoplasm. The visualized portion of the proximal small bowel appears normal in course and caliber. Impression: There is a small sliding-type hiatal hernia. There is mucosal irregularity at the GE junction with a possible small ulcer. There is gastroesophageal reflux demonstrated to the level of the elsi. 2.2 minutes of fluoro time was utilized for this procedure. Reviewed by JOHN Austin 09/13/2018 04:56 P Electronically Signed by Ori Forbes MD 09/14/2018 11:08 A
== END ==
LOC: M RAD 09:18
PROVIDERS: ATTEND Family Medicine
DX: K44.9 Diaphragmatic hernia without obstruction or gangrene (principal); K21.9 Gastro-esophageal reflux disease without esophagitis

== ENCOUNTER → 2018-10-26 | Outpatient (CLI) | payer MEDICARE, MEDICAID ==
[~2018-10-26] MED LIST changes: -E-Z-GAS II EFFERVESCENT PACKET (SODIUM BICARB./CITRIC ACID/SIMETHICONE) As Ordered ONE; -E-Z-HD 98% w/w 340GM SUSP BTL As Ordered ONE; -E-Z-PAQUE 96% w/w SUSP 176GM BTL As Ordered ONE
--- NOTE | 2018-10-26 15:04 | REP ---
Chest two views HISTORY: Anemia Comparison: 10/17/2017 The lungs are clear. The heart is normal in size. The pulmonary vasculature is normal in appearance. The bony structure is intact. IMPRESSION: No acute disease. Electronically Signed by Stefan Huntley MD 10/26/2018 02:56 P
[2018-10-26 15:23] LABS: HEMATOCRIT 34.3 % (36.0-47.0); HEMOGLOBIN 11.4 g/dl (12.0-15.5); MEAN CORPUSCULAR HEMOGLOBIN 28.6 pg (27.0-33.0); MEAN CORPUSCULAR HGB CONC 33.2 g/dl (32.0-36.5); MEAN CORPUSCULAR VOLUME 86.2 fl (80.0-96.0); PLATELET COUNT, AUTOMATED 145 10^3/uL (150-450); RED BLOOD COUNT 3.98 10^6/uL (4.00-5.40); WHITE BLOOD COUNT 7.8 10^3/uL (4.0-10.0)
[2018-10-26 15:58] LABS: ALBUMIN 3.7 GM/DL (3.2-5.2); ALT/SGPT 18 U/L (12-78); BILIRUBIN,TOTAL 0.4 MG/DL (0.2-1.0); BLOOD UREA NITROGEN 8 MG/DL (7-18); CALCIUM LEVEL 8.5 MG/DL (8.5-10.1); CARBON DIOXIDE LEVEL 29 MEQ/L (21-32); CHLORIDE LEVEL 110 MEQ/L (98-107); CHOLESTEROL LEVEL 185 MG/DL (<200); CHOLESTEROL RISK RATIO 3.627 (<5); GLOMERULAR FILTRATION RATE > 60.0 (>51); GLUCOSE, FASTING 96 MG/DL (70-100); HDL CHOLESTEROL 51 MG/DL (>40); LDL CHOLESTEROL 117 MG/DL (<100); NON-HDL-C 134 MG/DL; POTASSIUM SERUM 4.3 MEQ/L (3.5-5.1); SODIUM LEVEL 143 MEQ/L (136-145); TOTAL 25(OH) VITAMIN D 67.6 NG/ML (30.0-100.0); TOTAL PROTEIN 7.2 GM/DL (6.4-8.2); TRIGLYCERIDES LEVEL 86 MG/DL (<150)
[2018-10-26 16:04] LABS: HEMOGLOBIN A1c 5.7 %
--- NOTE | 2018-10-27 00:31 | ECGEPIP ---
[facility] Test Date: 2018-10-26 Pat Name: TERRENCE WRIGHT Department: Room: - Gender: Female Field Service Supervisor: YASEMIN : 1960 Requested By: Josephine Dixon Order Number: [id number] Reading MD: Mat Nieto Measurements Intervals [place] Rate: 56 P: [place]: 168 QRS: 3 QRSD: 94 T: QT: 409 QTc: 398 Interpretive Statements SINUS BRADYCARDIA MODERATE T-WAVE ABNORMALITY, CONSIDER ANTEROLATERAL ISCHEMIA Similar to tracing done 10-17-17 with some T wave changes inferiorly Electronically Signed on 10-27-2018 0:31:04 EDT by Mat Nieto
== END ==
LOC: M LAB 13:38
PROVIDERS: ATTEND Family Medicine
DX: D64.9 Anemia, unspecified (principal); E03.9 Hypothyroidism, unspecified

== ENCOUNTER → 2018-12-07 | Outpatient (CLI) | payer MEDICARE, MEDICAID ==
[~2018-12-07] MED LIST changes: +ISOVUE-370 76% 100ML VIAL (Q9967) As Ordered ONE
--- NOTE | 2018-12-07 18:33 | REP ---
CT of the abdomen pelvis without with IV contrast, CT urogram protocol for chronic stage II renal disease, hydronephrosis and hematuria: The visualized lower lung rico are unremarkable. There are no renal, ureteral or bladder calculi. There are phleboliths in the pelvis. There is renal cortical scarring of the right kidney. This could be from prior pyelonephritis, renal infarcts, chronic renal disease or combination. Left kidney is unremarkable. There is no perinephric stranding on the right on the left. The visualized lung rico are unremarkable. There are too hepatic right lobe cysts measuring approximately three point centimeters H immediately adjacent to one another the hepatic parenchyma is otherwise homogeneous and unremarkable. The gallbladder, pancreas, spleen and adrenals are unremarkable. The abdominal aorta is unremarkable. There is no periaortic adenopathy or mass. There is wall thickening of the transverse colon and descending colon. This is compatible with colitis in the appropriate clinical setting. There are occasional diverticula in the descending colon and sigmoid colon. There is no CT evidence of diverticulitis. Pelvis: The appendix is unremarkable. The uterus and adnexa are unremarkable. The bladder is incompletely distended and cannot be further evaluated. There is no pelvic adenopathy or ascites. Impression: There are is renal cortical scarring of the right kidney and this could be from previous pyelonephritis, renal infarcts, chronic renal disease or combination. The left kidney is unremarkable. There are no renal, ureteral or bladder calculi. There are no renal masses. There are two hepatic cysts. There is diverticulosis without diverticulitis. There is wall thickening of the transverse colon and descending colon. This is compatible with colitis in the appropriate clinical setting. Electronically Signed by Ori Pettit MD 12/07/2018 06:26 P
== END ==
LOC: M RAD 16:24
PROVIDERS: ATTEND Internal Medicine Nephrology
DX: N18.2 Chronic kidney disease, stage 2 (mild) (principal); N13.39 Other hydronephrosis; R31.9 Hematuria, unspecified; K76.89 Other specified diseases of liver
CPT/HCPCS: 74178; Q9967

== ENCOUNTER 2019-01-16 07:29 | Day surgery (SDC) | payer MEDICARE, MEDICAID ==
[~2019-01-16] VITALS: Ht 162.6 cm; Wt 68.9 kg
[~2019-01-16 07:29] MED LIST changes: +CARI1TAB7 PO; -GABA-843; +GABA-843 PO; +HYDR-4514 PO; -ISOVUE-370 76% 100ML VIAL (Q9967) As Ordered ONE; +LIDOCAINE 2% INJ 100 MG/5 ML SDV (FOR ANES.) As Ordered ONE; +NS 1,000 ML IV ONE; +OMEP-218 PO; +ONDA4TAB5 PO; +OXYB5TAB2 PO; -PROAAER10; +PROAAER10 INH; +PROPOFOL 200 MG/20 ML VIAL As Ordered ONE; +SUCR1TAB56 PO
[2019-01-16] MEDS ORDERED: fentaNYL 100 MCG/2 ML INJECTION (J3010) As Ordered ONE (08:24)
--- NOTE | 2019-01-16 08:43 | ROOR ---
Patient Name: Mandie Carreon Procedure Date: 01/16/2019 8:19 AM Date of : 1960 Age: 58 Room: [facility] Gender: Female Note Status: Finalized Procedure: Upper Endoscopy + Biopsies Indications: Heartburn, Exclusion of Rodriguez's esophagus Providers: Marcellus Maurice MD Referring MD: ANGIE DOMINGUEZ MD Requesting Provider: Medicines: Monitored Anesthesia Care Complications: No immediate complications. Procedure: Pre-Anesthesia Assessment: - The heart rate, respiratory rate, oxygen saturations, blood pressure, adequacy of pulmonary ventilation, and response to care were monitored throughout the procedure. The Endoscope was introduced through the mouth, and advanced to the second part of duodenum. The upper GI endoscopy was accomplished without difficulty. The patient tolerated the procedure well. Findings: The Z-line was irregular and was found 35 cm from the incisors. Multiple biopsies were obtained with cold forceps for evaluation to rule out Rodriguez's Esophagus randomly at the gastroesophageal junction. One linear esophageal ulcer with no bleeding and no stigmata of recent bleeding was found 35 cm from the incisors. A small hiatal hernia was present. No other significant abnormalities were identified in a careful examination of the stomach. Biopsies were taken with a cold forceps in the gastric antrum for Helicobacter pylori testing. The exam of the duodenum was otherwise normal. Impression: - Z-line irregular, 35 cm from the incisors. - Non-bleeding esophageal ulcer. - Small hiatal hernia. - Multiple biopsies were obtained at the gastroesophageal junction. - Biopsies were taken with a cold forceps for Helicobacter pylori testing. - The examination was otherwise normal. Recommendation: - Patient has a contact number available for emergencies. The signs and symptoms of potential delayed complications were discussed with the patient. Return to normal activities tomorrow. Written discharge instructions were provided to the patient. - High fiber diet. - Discharge patient to home. - Follow an antireflux regimen. - Continue present medications. - Await pathology results. - Telephone GI clinic for pathology results in 1 week. - Return to referring physician. - The findings and recommendations were discussed with the patient's family. Marcellus Maurice MD Marcellus Maurice MD 01/16/2019 8:43:30 AM Electronically signed by Marcellus Maurice MD Number of Addenda: 0 Note Initiated On: 01/16/2019 8:19 AM Estimated Blood Loss: Estimated blood loss: none.
[2019-01-16 09:20] VITALS: BP 143/87
== END 2019-01-16 09:27 | disposition home or self-care (01) ==
LOC: M OPP 07:29
PROVIDERS: ATTEND Internal Medicine Gastroenterology
DX: K22.8 Other specified diseases of esophagus (principal); K22.10 Ulcer of esophagus without bleeding; K44.9 Diaphragmatic hernia without obstruction or gangrene; K21.9 Gastro-esophageal reflux disease without esophagitis; R12 Heartburn; Z79.891 Long term (current) use of opiate analgesic; Z79.899 Other long term (current) drug therapy; Z88.8 Allergy status to other drugs, medicaments and biological substances
CPT/HCPCS: 43239; 88305; J3010

== ENCOUNTER → 2019-04-17 | Outpatient (CLI) | payer MEDICARE ==
[~2019-04-17] MED LIST changes: -LIDOCAINE 2% INJ 100 MG/5 ML SDV (FOR ANES.) As Ordered ONE; -NS 1,000 ML IV ONE; -OMEP40CA2 PO; +OMEP40CA97 PO; -PROPOFOL 200 MG/20 ML VIAL As Ordered ONE
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
== END ==
LOC: M RAD 12:01
PROVIDERS: ATTEND Family Medicine
DX: M19.012 Primary osteoarthritis, left shoulder (principal)

== ENCOUNTER → 2019-05-20 | Outpatient (REF) | payer MEDICARE ==
[~2019-05-20] MED LIST changes: -OXYB5TAB2 PO; +OXYB5TAB3 PO
[2019-05-20 17:41] LABS: ALBUMIN 3.7 GM/DL (3.2-5.2); BLOOD UREA NITROGEN 8 MG/DL (7-18); CALCIUM LEVEL 8.9 MG/DL (8.5-10.1); CARBON DIOXIDE LEVEL 25 MEQ/L (21-32); CHLORIDE LEVEL 110 MEQ/L (98-107); CREATININE FOR GFR 0.76 MG/DL (0.55-1.30); GLOMERULAR FILTRATION RATE > 60.0 (>51); GLUCOSE, FASTING 98 MG/DL (70-100); PHOSPHORUS LEVEL 3.1 MG/DL (2.5-4.9); POTASSIUM SERUM 4.5 MEQ/L (3.5-5.1); SODIUM LEVEL 143 MEQ/L (136-145)
== END ==
LOC: M LAB REF 17:21
PROVIDERS: ATTEND Internal Medicine Nephrology
DX: N18.2 Chronic kidney disease, stage 2 (mild) (principal); K21.9 Gastro-esophageal reflux disease without esophagitis

== ENCOUNTER → 2019-07-01 | Outpatient (CLI) | payer MEDICARE, MEDICAID ==
[~2019-07-01] MED LIST changes: -FLUO20CA19 PO; +FLUO20CA22 PO; +ONDA-83 PO; -ONDA4TAB5 PO; +OXYB-54 PO; -OXYB5TAB3 PO
--- NOTE | 2019-07-01 09:27 | REP ---
RADIONUCLIDE RENAL SCINTIGRAPHY WITH DIFFERENTIAL RENAL FUNCTION ANALYSIS: HISTORY: Chronic kidney disease stage II. Evidence of cortical atrophy. Hydronephrosis. COMPARISON: CT study, December 07, 2018. TECHNIQUE: 8.8 mCi technetium 99m MAG-3 is injected, and posterior flow and excretory phase images are acquired. Renal cortical regions of interest are drawn, and time activity curves are plotted for renal function analysis. FINDINGS: Posterior flow study shows normal, symmetric renal bed perfusion. Excretory phase images show no evidence of renal mass on either side. The kidneys are symmetrical in overall size. Renal collecting system labeling appears bilaterally on the 3-minute image. There is some fullness of the intrarenal collecting system on the right compared to the left. This collecting system activity dissipates as the study progresses, and there is no overall evidence of obstructive uropathy. Pre- and postvoid images show dissipation of collecting system activity bilaterally. Differential renal function analysis is normal and symmetric with 52% of overall renal cortical counts coming from the left kidney and 48% from the right. Bsdh-yi-hqew activity is borderline at 3.0 bilaterally. Time to half-max activity is 7.8 minutes on the left, which is normal. Time to half-max activity on the right is somewhat delayed at 18.2 minutes. IMPRESSION: There is subtle fullness of the intrarenal collecting system on the right. No evidence of obstructive uropathy. Electronically Signed by Jace Roy MD 07/01/2019 11:06 A
== END ==
LOC: M RAD 07:26
PROVIDERS: ATTEND Internal Medicine Nephrology
DX: N18.2 Chronic kidney disease, stage 2 (mild) (principal); N13.39 Other hydronephrosis
CPT/HCPCS: 78707; A9562

== ENCOUNTER → 2019-08-14 | Outpatient (CLI) | payer MEDICARE, MEDICAID ==
--- NOTE | 2019-08-14 09:14 | REP ---
REASON: History of degenerative disc disease. COMPARISON: 10/10/2016. There has been no significant change from the prior exam. Vertebral body height and alignment is again seen to be within normal limits. There is mild posterior disc space narrowing at every level status quo. Minimal anterior lipping seen L4 and L5. The pedicles are again seen to be intact bilaterally. There is no spondylolysis or spondylolisthesis. IMPRESSION: Minimal chronic changes stable from the prior exam as described above. Electronically Signed by Fredrick Sellers DO 08/14/2019 10:49 A
== END ==
LOC: M RAD 08:24
PROVIDERS: ATTEND Family Medicine
DX: M54.30 Sciatica, unspecified side (principal)

== ENCOUNTER → 2019-11-07 | Outpatient (REF) | payer MEDICARE, MEDICAID | LOC: M SFHCWAGY 17:53 | PROVIDERS: ATTEND Nurse Practitioner Family | DX: Z12.4 Encounter for screening for malignant neoplasm of cervix (principal) | CPT/HCPCS: G0101; G0123 ==

== ENCOUNTER → 2019-11-07 | Outpatient (CLI) | payer MEDICARE, MEDICAID ==
--- NOTE | 2019-11-07 12:11 | REPMRS ---
Patient History The patient states she had a clinical breast exam in October 2019. No known family history of cancer. Took hormonal contraceptives for 5 years. Taking estrogen for 1 year. Digital Woman Screen Mammo: November 07, 2019 - Exam #: [id number] Bilateral CC and MLO view(s) were taken. Technologist: Kym Simon Technologist Prior study comparison: July 30, 2018, bilateral digital woman screen mammo performed at [facility]. July 28, 2017, digital woman screen mammo performed at [facility]. April 26, 2016, digital woman screen mammo performed at [facility]. FINDINGS: There are scattered fibroglandular densities. The Volpara volumetric breast density category is:B. There has been no change in the appearance of the mammogram from the prior studies. There is a mild amount of scattered fibroglandular density which is fairly symmetric. There is no interval development of dominant mass, architectural distortion, or grouped microcalcification suggestive of malignancy. 3-D tomosynthesis shows no additional findings. Assessment: BI-RADS/ACR category 1 mammogram. Negative Mammogram. Recommendation Routine screening mammogram of both breasts in 1 year (for women over age 40). This patient's Lifetime Breast Cancer Risk is estimated at 6.7 %. This mammogram was interpreted with the aid of an FDA-approved computer-aided dectection system. Electronically Signed By: Kevin Roy MD 11/07/19 [id number]
== END ==
LOC: M WHC 10:59
PROVIDERS: ATTEND Nurse Practitioner Family
DX: Z01.419 Encounter for gynecological examination (general) (routine) without abnormal findings (principal); Z12.31 Encounter for screening mammogram for malignant neoplasm of breast; Z92.0 Personal history of contraception; Z92.23 Personal history of estrogen therapy
CPT/HCPCS: 77063; 77067; G0101; G0123

== ENCOUNTER → 2020-12-03 | Outpatient (REF) | payer MEDICARE, MEDICAID ==
[~2020-12-03] MED LIST changes: +ARIP10TA32; +ARIP10TA32 PO; -ARIP1TAB; -ARIP1TAB PO; +GABA-282 PO; -GABA-843 PO; +OMEP40CA4 PO; -OMEP40CA97 PO
[2020-12-03 18:49] LABS: PERCENT SATURATION 19.6 % (13.2-45.0)
== END ==
LOC: M LAB REF 17:27
PROVIDERS: ATTEND Internal Medicine Nephrology
DX: Z12.4 Encounter for screening for malignant neoplasm of cervix (principal); N39.0 Urinary tract infection, site not specified; D50.9 Iron deficiency anemia, unspecified; Z12.31 Encounter for screening mammogram for malignant neoplasm of breast; Z78.0 Asymptomatic menopausal state; Z92.0 Personal history of contraception; Z92.23 Personal history of estrogen therapy
CPT/HCPCS: 77063; 77067; 82728; 83550; 87088; 87186; 87624; G0101; G0123

== ENCOUNTER → 2020-12-03 | Outpatient (CLI) | payer MEDICARE, MEDICAID ==
--- NOTE | 2020-12-03 10:57 | REPMRS ---
Patient History The patient states she had a clinical breast exam in November 2020. Patient is postmenopausal. No known family history of cancer. Took hormonal contraceptives for 5 years. Took estrogen for 1 year. 15-20 lb unintentional weight gain. Patient states no breast complaints today. Patient has signed MRS History Sheet. Digital Woman Screen Mammo: December 03, 2020 - Exam #: [id number] Bilateral CC and MLO view(s) were taken. Technologist: RT Imer Prior study comparison: November 07, 2019, bilateral digital woman screen mammo performed at [facility]. July 30, 2018, bilateral digital woman screen mammo performed at [facility]. July 28, 2017, digital woman screen mammo performed at [facility]. FINDINGS: There are scattered fibroglandular densities. The Volpara volumetric breast density category is:B. There has been no change in the appearance of the mammogram from the prior studies. There is a mild amount of scattered fibroglandular density which is fairly symmetric. There is no interval development of dominant mass, architectural distortion, or grouped microcalcification suggestive of malignancy. 3-D tomosynthesis shows no additional findings. Assessment: BI-RADS/ACR category 1 mammogram. Negative Mammogram. Recommendation Routine screening mammogram of both breasts in 1 year (for women over age 40). This patient's [facility] Lifetime Breast Cancer Risk is estimated at 6.6 %. This mammogram was interpreted with the aid of an FDA-approved computer-aided dectection system. Electronically Signed By: Kevin Roy MD 12/03/20 [id number]
== END ==
LOC: M WHC 09:50
PROVIDERS: ATTEND Nurse Practitioner Women's Health
DX: Z12.31 Encounter for screening mammogram for malignant neoplasm of breast (principal); Z78.0 Asymptomatic menopausal state; Z92.0 Personal history of contraception; Z92.23 Personal history of estrogen therapy

== ENCOUNTER → 2020-12-03 | Outpatient (REF) | payer MEDICARE, MEDICAID | LOC: M SFHCWAGY 13:11 | PROVIDERS: ATTEND Nurse Practitioner Women's Health | DX: Z12.4 Encounter for screening for malignant neoplasm of cervix (principal) ==

== ENCOUNTER → 2020-12-10 | Outpatient (CLI) | payer MEDICARE, MEDICAID ==
[2020-12-10 11:02] LABS: HEMATOCRIT 33.9 % (36.0-47.0); HEMOGLOBIN 11.3 g/dl (12.0-15.5); MEAN CORPUSCULAR HEMOGLOBIN 29.6 pg (27.0-33.0); MEAN CORPUSCULAR HGB CONC 33.3 g/dl (32.0-36.5); MEAN CORPUSCULAR VOLUME 88.7 fl (80.0-96.0); PLATELET COUNT, AUTOMATED 148 10^3/uL (150-450); RED BLOOD COUNT 3.82 10^6/uL (4.00-5.40); WHITE BLOOD COUNT 6.1 10^3/uL (4.0-10.0)
[2020-12-10 11:24] LABS: HEMOGLOBIN A1c 5.8 %
[2020-12-10 11:33] LABS: ALT/SGPT 22 U/L (12-78); BILIRUBIN,TOTAL 0.4 MG/DL (0.2-1.0); BLOOD UREA NITROGEN 11 MG/DL (7-18); CALCIUM LEVEL 9.1 MG/DL (8.5-10.1); CARBON DIOXIDE LEVEL 29 MEQ/L (21-32); CHLORIDE LEVEL 113 MEQ/L (98-107); CHOLESTEROL LEVEL 201 MG/DL (<200); CREATININE FOR GFR 0.64 MG/DL (0.55-1.30); GLOMERULAR FILTRATION RATE > 60.0 (>51); GLUCOSE, FASTING 76 MG/DL (70-100); POTASSIUM SERUM 4.6 MEQ/L (3.5-5.1); SODIUM LEVEL 144 MEQ/L (136-145); TRIGLYCERIDES LEVEL 134 MG/DL (<150)
[2020-12-10 11:34] LABS: ALBUMIN 3.8 GM/DL (3.2-5.2); CHOLESTEROL RISK RATIO 4.276 (<5); HDL CHOLESTEROL 47 MG/DL (>40); LDL CHOLESTEROL 127 MG/DL (<100); NON-HDL-C 154 MG/DL; THYROID STIMULATING HORMONE 0.868 uIU/ML (0.358-3.740)
[2020-12-10 11:35] LABS: TOTAL 25(OH) VITAMIN D 62.8 NG/ML (30.0-100.0)
== END ==
LOC: M LAB 09:33
PROVIDERS: ATTEND Family Medicine
DX: I10 Essential (primary) hypertension (principal); D64.9 Anemia, unspecified; R53.83 Other fatigue

== ENCOUNTER 2021-01-15 12:08 | Emergency (ER) | payer MEDICARE, MEDICAID ==
[~2021-01-15] VITALS: Ht 162.6 cm; Wt 69.1 kg
[2021-01-15] MEDS ORDERED: NS 1,000 ML IV ONE (13:25)
[2021-01-15] MEDS ORDERED: ONDANSETRON 4MG/2ML VIAL IV ONE (13:25)
[2021-01-15 14:33] LABS: HEMATOCRIT 35.1 % (36.0-47.0); HEMOGLOBIN 12.1 g/dl (12.0-15.5); MEAN CORPUSCULAR HEMOGLOBIN 29.2 pg (27.0-33.0); MEAN CORPUSCULAR HGB CONC 34.5 g/dl (32.0-36.5); MEAN CORPUSCULAR VOLUME 84.8 fl (80.0-96.0); PLATELET COUNT, AUTOMATED 153 10^3/uL (150-450); RED BLOOD COUNT 4.14 10^6/uL (4.00-5.40); WHITE BLOOD COUNT 4.9 10^3/uL (4.0-10.0)
--- NOTE | 2021-01-15 14:48 | REP ---
INDICATION: Coronavirus workup. COMPARISON: 10/16/2018. TECHNIQUE: Single portable AP view of the chest was performed. FINDINGS: There is no acute infiltrate or pulmonary edema. Lungs are clear. The heart is not significantly enlarged. The mediastinal silhouette is unremarkable. The visualized osseous structures are intact. IMPRESSION: No acute pulmonary disease. <Electronically signed by Ori Forbes > 01/15/21 [id number]
[2021-01-15 14:59] LABS: ALBUMIN 3.6 GM/DL (3.2-5.2); ALT/SGPT 20 U/L (12-78); BILIRUBIN,DIRECT 0.2 MG/DL (0.0-0.2); BILIRUBIN,TOTAL 0.7 MG/DL (0.2-1.0); BLOOD UREA NITROGEN 8 MG/DL (7-18); CARBON DIOXIDE LEVEL 27 MEQ/L (21-32); CHLORIDE LEVEL 108 MEQ/L (98-107); CK-MB VALUE MASS < 1.0 NG/ML (<3.6); CPK CREATINE PHOSPHOKINASE 70 U/L (26-192); CREATININE FOR GFR 0.66 MG/DL (0.55-1.30); FERRITIN 365 NG/ML (8-252); GLOMERULAR FILTRATION RATE > 60.0 (>51); GLUCOSE, FASTING 99 MG/DL (70-100); LDH LACTATE DEHYDROGENASE 276 U/L (84-246); LIPASE 298 U/L (73-393); MB/CK RELATIVE INDEX 1.43 (< OR =4); POTASSIUM SERUM 3.9 MEQ/L (3.5-5.1); SODIUM LEVEL 142 MEQ/L (136-145); TOTAL PROTEIN 7.5 GM/DL (6.4-8.2); TROPONIN I < 0.02 NG/ML (< 0.10)
[2021-01-15 15:21] LABS: ATYPICAL LYMPH 11 % (0-5); BASOPHILS 1 % (0-1); EOSINOPHILS 1 % (0-3); LYMPHOCYTES 19 % (16-44); MONOCYTES 3 % (0-5); NEUTROPHILS 65 % (28-66); PLATELET ESTIMATE NORMAL (NORMAL)
[2021-01-15] MEDS ORDERED: ONDA4TAB6 PO (16:55)
[2021-01-15] MEDS ORDERED: AUGM875T28 PO (16:55)
[2021-01-15 16:57] LABS: MONO REFLEX EBV COMP NEGATIVE (NEGATIVE)
[2021-01-15 17:30] VITALS: BP 128/68
[2021-01-19 14:08] LABS: EBV VIRAL CAPSID AG IgG >600.0 U/mL (0.0-17.9); EBV VIRAL CAPSID AG IgM <36.0 U/mL (0.0-35.9)
== END 2021-01-15 17:32 | disposition home or self-care (01) ==
LOC: M ED 12:08
DX: U07.1 COVID-19 (principal); K21.9 Gastro-esophageal reflux disease without esophagitis; E55.9 Vitamin D deficiency, unspecified; Z79.899 Other long term (current) drug therapy; Z88.5 Allergy status to narcotic agent; Z88.8 Allergy status to other drugs, medicaments and biological substances
CPT/HCPCS: 71045; 80048; 80076; 81001; 82550; 82553; 82728; 83605; 83615; 83690; 84484; 85025; 86140; 86308; 86664; 86665; 87086; 96374; 99284; J2405

== ENCOUNTER 2021-01-25 07:33 | Emergency (ER) | payer MEDICARE, MEDICAID ==
[~2021-01-25] VITALS: Ht 162.6 cm; Wt 71.3 kg
[~2021-01-25 07:33] MED LIST changes: +AUGM875T28 PO; +ONDA4TAB6 PO
[2021-01-25 07:34] VITALS: BP 138/69
== END 2021-01-25 10:15 | disposition left against medical advice (07) ==
LOC: M ED 07:33
DX: Z53.21 Procedure and treatment not carried out due to patient leaving prior to being seen by health care provider (principal)

== ENCOUNTER 2021-10-08 11:42 | Emergency (ER) | payer MEDICARE, MEDICAID ==
[~2021-10-08] VITALS: Ht 162.6 cm; Wt 72.8 kg
[~2021-10-08 11:42] MED LIST changes: +OMEP-173 PO; -OMEP-218 PO
[2021-10-08] MEDS ORDERED: LISI5TAB11 (11:53)
[2021-10-08] MEDS ORDERED: OXYB-54 (11:53)
[2021-10-08 13:08] LABS: BASO % 0.1 % (0.0-1.0); EOS % 0.1 % (0.0-3.0); HEMATOCRIT 34.5 % (36.0-47.0); HEMOGLOBIN 11.8 g/dl (12.0-15.5); LYMPH # 1.5 10^3/uL (1.5-5.0); LYMPH % 13.9 % (24.0-44.0); MEAN CORPUSCULAR HEMOGLOBIN 29.3 pg (27.0-33.0); MEAN CORPUSCULAR HGB CONC 34.2 g/dl (32.0-36.5); MEAN CORPUSCULAR VOLUME 85.6 fl (80.0-96.0); MONO # 0.7 10^3/uL (0.0-0.8); MONO % 6.2 % (2.0-8.0); NEUTROPHILS # 8.6 10^3/uL (1.5-8.5); NEUTROPHILS % 79.5 % (36.0-66.0); PLATELET COUNT, AUTOMATED 153 10^3/uL (150-450); RED BLOOD COUNT 4.03 10^6/uL (4.00-5.40); WHITE BLOOD COUNT 10.9 10^3/uL (4.0-10.0)
[2021-10-08 13:22] LABS: ALBUMIN 3.9 GM/DL (3.2-5.2); BILIRUBIN,DIRECT 0.2 MG/DL (0.0-0.2); TOTAL PROTEIN 7.9 GM/DL (6.4-8.2)
[2021-10-08] MEDS ORDERED: ONDANSETRON 4MG/2ML VIAL IV ONE (14:15)
[2021-10-08] MEDS ORDERED: KETOROLAC 30 MG/ML 1ML VIAL IV ONE (14:15)
[2021-10-08] MEDS ORDERED: ISOVUE-370 76% 100ML VIAL As Ordered ONE (14:21)
[2021-10-08] MEDS ORDERED: METR-265 PO (14:49)
[2021-10-08] MEDS ORDERED: CIPR-249 PO (14:49)
[2021-10-08] MEDS ORDERED: CIPROFLOXACIN 500MG TABLET PO ONE (14:50)
[2021-10-08] MEDS ORDERED: metroNIDAZOLE (FLAGYL) 500MG TABLET PO ONE (14:50)
[2021-10-08 15:08] VITALS: BP 147/91
== END 2021-10-08 15:12 | disposition home or self-care (01) ==
LOC: M ED 11:42
DX: K57.32 Diverticulitis of large intestine without perforation or abscess without bleeding (principal); I10 Essential (primary) hypertension; K21.9 Gastro-esophageal reflux disease without esophagitis; J44.9 Chronic obstructive pulmonary disease, unspecified; K27.9 Peptic ulcer, site unspecified, unspecified as acute or chronic, without hemorrhage or perforation; Z87.448 Personal history of other diseases of urinary system; F12.10 Cannabis abuse, uncomplicated; Z79.899 Other long term (current) drug therapy; Z88.5 Allergy status to narcotic agent; Z88.8 Allergy status to other drugs, medicaments and biological substances
CPT/HCPCS: 74177; 80047; 80076; 81001; 83690; 85025; 87086; 96374; 96375; 99284; J1885; J2405; Q9967

== ENCOUNTER → 2021-11-24 | Outpatient (CLI) | payer MEDICARE, MEDICAID ==
[~2021-11-24] MED LIST changes: +CIPR-249 PO; +LISI5TAB11; +METR-265 PO; +OXYB-54
[2021-11-24 12:24] LABS: HEMATOCRIT 34.2 % (36.0-47.0); HEMOGLOBIN 11.5 g/dl (12.0-15.5); MEAN CORPUSCULAR HEMOGLOBIN 29.4 pg (27.0-33.0); MEAN CORPUSCULAR HGB CONC 33.6 g/dl (32.0-36.5); MEAN CORPUSCULAR VOLUME 87.5 fl (80.0-96.0); PLATELET COUNT, AUTOMATED 172 10^3/uL (150-450); RED BLOOD COUNT 3.91 10^6/uL (4.00-5.40); WHITE BLOOD COUNT 6.6 10^3/uL (4.0-10.0)
[2021-11-24 15:33] LABS: BLOOD UREA NITROGEN 11 MG/DL (7-18); CARBON DIOXIDE LEVEL 24 MEQ/L (21-32); CHLORIDE LEVEL 110 MEQ/L (98-107); CREATININE FOR GFR 0.72 MG/DL (0.55-1.30); GLOMERULAR FILTRATION RATE > 60.0 (>51); GLUCOSE, FASTING 98 MG/DL (70-100); POTASSIUM SERUM 4.5 MEQ/L (3.5-5.1); SODIUM LEVEL 142 MEQ/L (136-145)
[2021-11-24 15:34] LABS: ALT/SGPT 18 U/L (12-78); BILIRUBIN,TOTAL 0.4 MG/DL (0.2-1.0); CALCIUM LEVEL 9.4 MG/DL (8.5-10.1); TOTAL PROTEIN 7.5 GM/DL (6.4-8.2)
[2021-11-24 15:48] LABS: TOTAL 25(OH) VITAMIN D 81.4 NG/ML (30.0-100.0)
[2021-11-24 22:21] LABS: HEMOGLOBIN A1c 5.4 %
== END ==
LOC: M WUC 09:35
PROVIDERS: ATTEND Family Medicine
DX: R53.83 Other fatigue (principal); N18.9 Chronic kidney disease, unspecified; E11.9 Type 2 diabetes mellitus without complications; Z79.899 Other long term (current) drug therapy

== ENCOUNTER 2022-01-07 15:23 | Emergency (ER) | payer OTHER, MEDICARE, MEDICAID ==
[2022-01-07] MEDS ORDERED: fentaNYL 100 MCG/2 ML INJECTION IV PRN (16:00)
[2022-01-07] MEDS ORDERED: NS 500 ML IV ONE (16:00)
[2022-01-07] MEDS ORDERED: ISOVUE-370 76% 100ML VIAL As Ordered ONE (16:04)
[2022-01-07 16:26] LABS: BASO % 0.1 % (0.0-1.0); EOS % 0.4 % (0.0-3.0); HEMATOCRIT 32.6 % (36.0-47.0); HEMOGLOBIN 11.2 g/dl (12.0-15.5); LYMPH # 1.6 10^3/uL (1.5-5.0); LYMPH % 22.9 % (24.0-44.0); MEAN CORPUSCULAR HEMOGLOBIN 29.6 pg (27.0-33.0); MEAN CORPUSCULAR HGB CONC 34.4 g/dl (32.0-36.5); MONO # 0.5 10^3/uL (0.0-0.8); MONO % 6.8 % (2.0-8.0); NEUTROPHILS # 4.7 10^3/uL (1.5-8.5); NEUTROPHILS % 69.7 % (36.0-66.0); PLATELET COUNT, AUTOMATED 132 10^3/uL (150-450); RED BLOOD COUNT 3.79 10^6/uL (4.00-5.40); WHITE BLOOD COUNT 6.8 10^3/uL (4.0-10.0)
[2022-01-07 17:01] LABS: ALBUMIN 3.5 GM/DL (3.2-5.2); ALT/SGPT 19 U/L (12-78); AMYLASE 87 U/L (25-115); BILIRUBIN,DIRECT 0.1 MG/DL (0.0-0.2); BILIRUBIN,TOTAL 0.3 MG/DL (0.2-1.0); BLOOD UREA NITROGEN 10 MG/DL (7-18); CALCIUM LEVEL 8.8 MG/DL (8.5-10.1); CARBON DIOXIDE LEVEL 27 MEQ/L (21-32); CHLORIDE LEVEL 112 MEQ/L (98-107); CREATININE FOR GFR 0.88 MG/DL (0.55-1.30); ETHYL ALCOHOL (ETHANOL) < 0.003 % (0.000-0.010); GLOMERULAR FILTRATION RATE > 60.0 (>51); GLUCOSE, FASTING 114 MG/DL (70-100); LIPASE 286 U/L (73-393); POTASSIUM SERUM 3.8 MEQ/L (3.5-5.1); SODIUM LEVEL 142 MEQ/L (136-145); TOTAL PROTEIN 6.9 GM/DL (6.4-8.2)
[2022-01-07 17:08] LABS: VENOUS BASE EXCESS 0.7 (-2.0-2.0); VENOUS HCO3 24.9 MEQ/L (23.0-27.0); VENOUS O2 SATURATION 83.6 % (60.0-80.0); VENOUS PARTIAL PRESSURE CO2 38.4 mmHg (38.0-50.0); VENOUS PARTIAL PRESSURE O2 46.8 mmHg (30.0-50.0); VENOUS STANDARD HCO3 24.8 MEQ/L; VENOUS TOTAL CO2 26.1 MEQ/L (24.0-28.0)
[2022-01-07 17:36] LABS: INR 1.06; PARTIAL THROMBOPLASTIN TIME 28.1 SECONDS (25.9-37.0); PROTHROMBIN TIME 14.3 SECONDS (12.7-14.5)
[2022-01-07 17:51] LABS: CK-MB VALUE MASS < 1.0 NG/ML (<3.6); CPK CREATINE PHOSPHOKINASE 94 U/L (26-192); MB/CK RELATIVE INDEX 1.06 (< OR =4)
[2022-01-07] MEDS ORDERED: KETOROLAC 30 MG/ML 1ML VIAL IV ONE (18:15)
[2022-01-07 19:44] LABS: APPEARANCE, URINE MANUAL CLEAR (CLEAR)
[2022-01-07 19:45] LABS: COLOR, URINE MANUAL LT YELLOW (YELLOW)
[2022-01-07 19:46] LABS: BILIRUBIN, URINE MANUAL NEGATIVE (NEGATIVE); BLOOD URINE MANUAL POSITIVE (NEGATIVE); GLUCOSE, URINE (UA) MANUAL NEGATIVE (NEGATIVE); KETONE, URINE MANUAL NEGATIVE (NEGATIVE); LEUKOCYTE ESTERASE, URINE MAN POSITIVE (NEGATIVE); NITRITE, URINE MANUAL NEGATIVE (NEGATIVE); PROTEIN, URINE MANUAL TRACE mg/dL (NEGATIVE); SPECIFIC GRAVITY,URINE MANUAL 1.005 (1.002-1.035); UROBILINOGEN, URINE MANUAL NORMAL (NORMAL)
[2022-01-07 20:16] LABS: BACTERIA, URINE NONE SEEN; HYALINE CAST, URINE NONE SEEN /lpf (0-1); RBC, URINE 0-1 /hpf (0-3); SQUAMOUS EPITHELIAL CELL URINE SMALL AMOUNT /hpf (SMALL AMT)
[2022-01-07 20:48] LABS: CK-MB VALUE MASS < 1.0 NG/ML (<3.6); CPK CREATINE PHOSPHOKINASE 103 U/L (26-192); MB/CK RELATIVE INDEX 0.97 (< OR =4)
[2022-01-07 20:49] LABS: AMPHETAMINES LEVEL URINE NEGATIVE (NEGATIVE); BARBITURATES URINE NEGATIVE (NEGATIVE); BENZODIAZEPINES URINE NEGATIVE (NEGATIVE); CANNABINOIDS URINE POSITIVE (NEGATIVE); COCAINE METABOLITE URINE NEGATIVE (NEGATIVE); METHADONE URINE NEGATIVE (NEGATIVE); OPIATES URINE NEGATIVE (NEGATIVE); PHENCYCLIDINE URINE NEGATIVE (NEGATIVE)
[2022-01-07] MEDS ORDERED: NORCO 5/325MG TABLET (HOME DOSE PACK) PO ONE (21:10)
[2022-01-07] MEDS ORDERED: NORCO, ANEXSIA 5/325MG TABLET (HYDROcodone/ACETAMINOPHEN) PO ONE (21:10)
[2022-01-07] MEDS ORDERED: LIDOCAINE 5% (LIDODERM) PATCH TD ONE (21:10)
[2022-01-07] MEDS ORDERED: LIDO5DIS41 TD (21:35)
[2022-01-07] MEDS ORDERED: HYDR-3713 PO (21:35)
[2022-01-07 22:00] VITALS: BP 140/85
[2022-01-08] MEDS ORDERED: **NOTE PATIENT COMMENT** MISC XX SCH (21:00)
== END 2022-01-07 22:56 | disposition home or self-care (01) ==
LOC: M ED 15:23
DX: S20.219A Contusion of unspecified front wall of thorax, initial encounter (principal); S80.02XA Contusion of left knee, initial encounter; S80.12XA Contusion of left lower leg, initial encounter; V29.88XA Motorcycle rider (driver) (passenger) injured in other specified transport accidents, initial encounter; J44.9 Chronic obstructive pulmonary disease, unspecified; G43.909 Migraine, unspecified, not intractable, without status migrainosus; F12.10 Cannabis abuse, uncomplicated; M47.892 Other spondylosis, cervical region; K42.9 Umbilical hernia without obstruction or gangrene; Z79.899 Other long term (current) drug therapy; Z88.5 Allergy status to narcotic agent; Z88.8 Allergy status to other drugs, medicaments and biological substances
CPT/HCPCS: 70450; 71045; 71260; 72125; 73552; 73564; 73590; 73610; 74177; 80047; 80048; 80076; 80307; 81000; 82077; 82150; 82550; 82553; 82803; 83605; 83690; 84484; 85025; 85610; 85730; 86850; 86900; 86901; 93041; 94760; 96361; 96374; 99285; J1885; J3010; Q9967

== ENCOUNTER 2022-01-09 10:15 | Emergency (ER) | payer MEDICARE, MEDICAID ==
[~2022-01-09] VITALS: Ht 162.6 cm; Wt 70.9 kg
[~2022-01-09 10:15] MED LIST changes: +HYDR-3713 PO; +LIDO5DIS41 TD
[2022-01-09] MEDS ORDERED: KETOROLAC 30 MG/ML 1ML VIAL IV ONE (10:55)
[2022-01-09] MEDS ORDERED: PERCOCET 5MG/325MG TAB PO ONE (11:25)
[2022-01-09 14:30] VITALS: BP 140/69
[2022-01-09] MEDS ORDERED: PERC5TAB12 PO (14:30)
== END 2022-01-09 14:51 | disposition home or self-care (01) ==
LOC: M ED 10:15
DX: S39.012A Strain of muscle, fascia and tendon of lower back, initial encounter (principal); S20.219A Contusion of unspecified front wall of thorax, initial encounter; S80.12XA Contusion of left lower leg, initial encounter; G43.909 Migraine, unspecified, not intractable, without status migrainosus; Z79.899 Other long term (current) drug therapy; Z88.8 Allergy status to other drugs, medicaments and biological substances; Z88.5 Allergy status to narcotic agent
CPT/HCPCS: 70450; 70490; 71046; 72131; 93005; 96374; 99284; J1885

== ENCOUNTER 2022-01-12 10:10 | Emergency (ER) | payer MEDICARE, MEDICAID ==
[~2022-01-12] VITALS: Ht 162.6 cm; Wt 70.9 kg
[2022-01-12] MEDS ORDERED: SIMV20TA22 (10:21)
[2022-01-12] MEDS ORDERED: FLUO10CA18 (10:21)
[2022-01-12] MEDS ORDERED: OLAN1TAB16 (10:21)
[2022-01-12 12:59] VITALS: BP 154/93
== END 2022-01-12 13:01 | disposition home or self-care (01) ==
LOC: M ED 10:10
DX: S30.0XXA Contusion of lower back and pelvis, initial encounter (principal); J44.9 Chronic obstructive pulmonary disease, unspecified; K21.9 Gastro-esophageal reflux disease without esophagitis; R51.9 Headache, unspecified; Z79.899 Other long term (current) drug therapy; Z88.5 Allergy status to narcotic agent; Z88.8 Allergy status to other drugs, medicaments and biological substances

== ENCOUNTER → 2022-02-16 | Outpatient (REF) | payer MEDICARE, MEDICAID ==
[~2022-02-16] MED LIST changes: +FLUO10CA18; +OLAN1TAB16; +SIMV20TA22
[2022-02-16 19:06] LABS: PERCENT SATURATION 20.1 % (13.2-45.0)
== END ==
LOC: M LAB REF 17:26
PROVIDERS: ATTEND Nurse Practitioner Family
DX: D64.9 Anemia, unspecified (principal)

== ENCOUNTER → 2022-06-13 | Outpatient (REF) | payer MEDICARE, MEDICAID ==
[2022-06-13 20:05] LABS: GC DNA AMPLIFICATION NEGATIVE (NEGATIVE)
== END ==
LOC: M PLALAB 16:13
PROVIDERS: ATTEND Obstetrics & Gynecology
DX: Z01.419 Encounter for gynecological examination (general) (routine) without abnormal findings (principal); Z12.31 Encounter for screening mammogram for malignant neoplasm of breast; N95.2 Postmenopausal atrophic vaginitis; Z11.3 Encounter for screening for infections with a predominantly sexual mode of transmission; Z72.89 Other problems related to lifestyle

== ENCOUNTER → 2022-06-13 | Outpatient (CLI) | payer MEDICARE, MEDICAID | LOC: M WHC 09:45 | PROVIDERS: ATTEND Obstetrics & Gynecology | DX: Z12.31 Encounter for screening mammogram for malignant neoplasm of breast (principal) ==

== ENCOUNTER → 2022-07-22 | Outpatient (REF) | payer MEDICARE, MEDICAID ==
[2022-07-22 16:46] LABS: BASO % 0.2 % (0.0-1.0); EOS % 0.4 % (0.0-3.0); HEMATOCRIT 34.1 % (36.0-47.0); LYMPH # 1.4 10^3/uL (1.5-5.0); LYMPH % 24.5 % (24.0-44.0); MEAN CORPUSCULAR HEMOGLOBIN 28.6 pg (27.0-33.0); MEAN CORPUSCULAR HGB CONC 32.3 g/dl (32.0-36.5); MEAN CORPUSCULAR VOLUME 88.8 fl (80.0-96.0); MONO # 0.3 10^3/uL (0.0-0.8); MONO % 4.5 % (2.0-8.0); NEUTROPHILS # 3.9 10^3/uL (1.5-8.5); NEUTROPHILS % 70.2 % (36.0-66.0); PLATELET COUNT, AUTOMATED 154 10^3/uL (150-450); RED BLOOD COUNT 3.84 10^6/uL (4.00-5.40); WHITE BLOOD COUNT 5.5 10^3/uL (4.0-10.0)
[2022-07-22 17:20] LABS: ALBUMIN 3.7 G/DL (3.2-5.2); ALKALINE PHOSPHATASE 99 U/L (46-116); ALT/SGPT 21 U/L (7.0-40); AST/SGOT 20 U/L (<34); BILIRUBIN,TOTAL 0.6 MG/DL (0.3-1.2); BLOOD UREA NITROGEN 11 MG/DL (9-23); CALCIUM LEVEL 8.8 MG/DL (8.5-10.1); CARBON DIOXIDE LEVEL 27 MMOL/L (20-31); CHLORIDE LEVEL 108 MMOL/L (98-107); CHOLESTEROL LEVEL 211 MG/DL (<200); CHOLESTEROL RISK RATIO 4.16 (<5); CREATININE FOR GFR 0.64 MG/DL (0.55-1.30); GLOMERULAR FILTRATION RATE > 60.0 (>51); GLUCOSE, FASTING 94 MG/DL (60-100); HDL CHOLESTEROL 50.7 MG/DL (>40); LDL CHOLESTEROL 136.7 MG/DL (<100); NON-HDL-C 160.3 MG/DL; POTASSIUM SERUM 4.2 MMOL/L (3.5-5.1); SODIUM LEVEL 142 MMOL/L (136-145); THYROID STIMULATING HORMONE 1.783 uIU/ML (0.55-4.78); TOTAL PROTEIN 7.1 G/DL (5.7-8.2); TRIGLYCERIDES LEVEL 118 MG/DL (<150)
== END ==
LOC: M LAB REF 16:04
PROVIDERS: ATTEND Pediatrics
DX: K21.9 Gastro-esophageal reflux disease without esophagitis (principal); E78.5 Hyperlipidemia, unspecified

== ENCOUNTER → 2022-08-03 | Outpatient (CLI) | payer MEDICARE, MEDICAID | LOC: M WHC 13:50 | PROVIDERS: ATTEND Pediatrics | DX: Z13.820 Encounter for screening for osteoporosis (principal) ==

== ENCOUNTER → 2022-08-17 | Outpatient (REF) | payer MEDICARE, MEDICAID ==
[2022-08-17 19:32] LABS: FOLATE 12.4 NG/ML (>5.4)
== END ==
LOC: M LAB REF 16:56
PROVIDERS: ATTEND Nurse Practitioner Family
DX: D64.9 Anemia, unspecified (principal)

== ENCOUNTER → 2022-09-03 | Outpatient (CLI) | payer OTHER | LOC: M RAD 08:01 | PROVIDERS: ATTEND Physician Assistant | DX: M25.562 Pain in left knee (principal); S83.232A Complex tear of medial meniscus, current injury, left knee, initial encounter; M94.262 Chondromalacia, left knee; M71.22 Synovial cyst of popliteal space [Baker], left knee; S83.272A Complex tear of lateral meniscus, current injury, left knee, initial encounter; X58.XXXA Exposure to other specified factors, initial encounter; Y92.9 Unspecified place or not applicable; Y93.9 Activity, unspecified; Y99.9 Unspecified external cause status; M25.462 Effusion, left knee ==

== ENCOUNTER → 2022-09-16 | Outpatient (CLI) | payer MEDICARE, MEDICAID | LOC: M WHC 10:23 | PROVIDERS: ATTEND Nurse Practitioner Family | DX: N18.2 Chronic kidney disease, stage 2 (mild) (principal); N28.1 Cyst of kidney, acquired ==

== ENCOUNTER → 2022-11-22 | Outpatient (CLI) | payer MEDICARE, MEDICAID | LOC: M RAD 11:17 | PROVIDERS: ATTEND Pediatrics | DX: R07.89 Other chest pain (principal) ==

== ENCOUNTER 2023-02-03 06:51 | Emergency (ER) | payer MEDICARE, MEDICAID ==
[~2023-02-03] VITALS: Ht 162.6 cm; Wt 75.4 kg
[2023-02-03] MEDS ORDERED: GABAPENTIN 100 MG CAP PO ONE (08:05)
[2023-02-03] MEDS ORDERED: KETOROLAC TROMETHAMINE 10 MG TAB PO ONE (09:05)
[2023-02-03] MEDS ORDERED: PERCOCET 5MG/325MG TAB PO ONE (10:25)
[2023-02-03] MEDS ORDERED: dexAMETHasone 20MG/5ML VIAL IV ONE (12:30)
[2023-02-03] MEDS ORDERED: HYDROMORPHONE HCL 0.5 MG/ 0.5 ML SYRINGE IV PRN (12:40)
[2023-02-03] MEDS ORDERED: HYDR-3713 PO (14:58)
[2023-02-03] MEDS ORDERED: MEDR4PAK PO (14:58)
[2023-02-03 15:15] VITALS: BP 133/71; TEMP 97; O2SAT 98
[2023-02-03] MEDS ORDERED: ONDA4TAB6 PO (15:24)
[2023-02-03] MEDS ORDERED: ONDANSETRON 4MG ORAL DISINTEGRATING TAB PO ONE (15:25)
== END 2023-02-03 15:35 | disposition home or self-care (01) ==
LOC: M ED 06:51
DX: M54.50 Low back pain, unspecified (principal); J44.9 Chronic obstructive pulmonary disease, unspecified; K21.9 Gastro-esophageal reflux disease without esophagitis; F41.9 Anxiety disorder, unspecified; Z88.5 Allergy status to narcotic agent; Z79.811 Long term (current) use of aromatase inhibitors; Z79.83 Long term (current) use of bisphosphonates; Z79.899 Other long term (current) drug therapy
CPT/HCPCS: 72110; 72148; 80047; 96374; 96375; 99284; J1100; J1170

== ENCOUNTER → 2023-06-26 | Outpatient (REF) | payer MEDICARE, MEDICAID ==
[~2023-06-26] MED LIST changes: +MEDR4PAK PO
[2023-06-26 14:16] LABS: BASO % 0.3 % (0.0-1.0); EOS % 0.3 % (0.0-3.0); HEMATOCRIT 33.6 % (36.0-47.0); HEMOGLOBIN 11.3 g/dl (12.0-15.5); LYMPH # 1.6 10^3/uL (1.5-5.0); LYMPH % 23.8 % (24.0-44.0); MEAN CORPUSCULAR HEMOGLOBIN 29.3 pg (27.0-33.0); MEAN CORPUSCULAR HGB CONC 33.6 g/dl (32.0-36.5); MONO # 0.4 10^3/uL (0.0-0.8); MONO % 5.3 % (2.0-8.0); NEUTROPHILS # 4.8 10^3/uL (1.5-8.5); PLATELET COUNT, AUTOMATED 166 10^3/uL (150-450); RED BLOOD COUNT 3.86 10^6/uL (4.00-5.40); WHITE BLOOD COUNT 6.8 10^3/uL (4.0-10.0)
[2023-06-26 14:42] LABS: HDL CHOLESTEROL 51.2 MG/DL (>40); LDL CHOLESTEROL 132.2 MG/DL (<100); NON-HDL-C 153.8 MG/DL
[2023-06-26 14:46] LABS: THYROID STIMULATING HORMONE 2.449 uIU/ML (0.55-4.78)
== END ==
LOC: M LAB REF 12:47
PROVIDERS: ATTEND Pediatrics
DX: E78.5 Hyperlipidemia, unspecified (principal); D64.9 Anemia, unspecified

== ENCOUNTER → 2023-07-11 | Outpatient (CLI) | payer MEDICARE, MEDICAID | LOC: M WHC 10:46 | PROVIDERS: ATTEND Obstetrics & Gynecology | DX: Z12.31 Encounter for screening mammogram for malignant neoplasm of breast (principal) ==

== ENCOUNTER → 2023-07-11 | Outpatient (CLI) | payer MEDICARE, MEDICAID ==
[2023-07-11 16:17] LABS: HIV 1&2 SCREEN NEGATIVE (NEGATIVE)
[2023-07-11 16:26] LABS: HEPATITIS B CORE ANTIBODY IGM NEGATIVE (NEGATIVE); HEPATITIS C VIRUS ABY INDEX 0.05 INDEX (<0.8)
[2023-07-11 19:46] LABS: Trichomonas vaginalis (AMP) NOT DETECTED (NEGATIVE)
[2023-07-11 20:09] LABS: GC DNA AMPLIFICATION NEGATIVE (NEGATIVE)
== END ==
LOC: M PLALAB 12:41
PROVIDERS: ATTEND Obstetrics & Gynecology
DX: Z11.3 Encounter for screening for infections with a predominantly sexual mode of transmission (principal); Z72.89 Other problems related to lifestyle; Z11.59 Encounter for screening for other viral diseases; Z88.5 Allergy status to narcotic agent; Z88.8 Allergy status to other drugs, medicaments and biological substances; Z80.0 Family history of malignant neoplasm of digestive organs

== ENCOUNTER → 2023-08-04 | Outpatient (CLI) | payer MEDICARE, MEDICAID | LOC: M WUC 09:43 | PROVIDERS: ATTEND Pediatrics | DX: S30.0XXA Contusion of lower back and pelvis, initial encounter (principal); Y93.9 Activity, unspecified; Y92.9 Unspecified place or not applicable ==

== ENCOUNTER → 2023-10-24 | Outpatient (REF) | payer MEDICARE, MEDICAID ==
[~2023-10-24] MED LIST changes: +FLUO-290; +FLUO-365 PO; -FLUO10CA18; -FLUO20CA22 PO; +ONDA-282 PO; -ONDA4TAB6 PO
[2023-10-24 15:19] LABS: BASO % 0.6 % (0.0-1.0); EOS % 0.4 % (0.0-3.0); HEMOGLOBIN 11.1 g/dl (12.0-15.5); LYMPH # 1.8 10^3/uL (1.5-5.0); LYMPH % 26.3 % (24.0-44.0); MEAN CORPUSCULAR HGB CONC 33.6 g/dl (32.0-36.5); MEAN CORPUSCULAR VOLUME 86.2 fl (80.0-96.0); MONO # 0.4 10^3/uL (0.0-0.8); MONO % 6.1 % (2.0-8.0); NEUTROPHILS # 4.4 10^3/uL (1.5-8.5); NEUTROPHILS % 64.3 % (36.0-66.0); PLATELET COUNT, AUTOMATED 145 10^3/uL (150-450); RED BLOOD COUNT 3.83 10^6/uL (4.00-5.40); WHITE BLOOD COUNT 6.9 10^3/uL (4.0-10.0)
[2023-10-24 15:31] LABS: FERRITIN 107.2 NG/ML (7.3-270.7)
[2023-10-24 15:37] LABS: PERCENT SATURATION 14.2 % (13.2-45.0)
== END ==
LOC: M LAB REF 14:38
PROVIDERS: ATTEND Pediatrics
DX: D64.9 Anemia, unspecified (principal)

== ENCOUNTER → 2023-12-12 | Outpatient (REF) | payer MEDICARE, MEDICAID | LOC: M LAB REF 15:31 | PROVIDERS: ATTEND Pediatrics | DX: K21.9 Gastro-esophageal reflux disease without esophagitis (principal) ==

== ENCOUNTER → 2023-12-22 | Outpatient (CLI) | payer MEDICARE, MEDICAID | LOC: M RAD 15:31 | PROVIDERS: ATTEND Pediatrics | DX: S39.92XA Unspecified injury of lower back, initial encounter (principal); X58.XXXA Exposure to other specified factors, initial encounter; Y92.9 Unspecified place or not applicable; Y93.9 Activity, unspecified; Y99.9 Unspecified external cause status ==

== ENCOUNTER 2024-03-10 04:30 | Emergency (ER) | payer MEDICARE, MEDICAID ==
[~2024-03-10] VITALS: Ht 162.6 cm; Wt 75.3 kg
[~2024-03-10 04:30] MED LIST changes: -ARIP10TA32; -ARIP10TA32 PO; +ARIP10TA63; +ARIP10TA63 PO; +GABA-1172 PO; -GABA-282 PO
[2024-03-10] MEDS: LIDOCAINE 4% CREAM 5GM (LMX4) TOP ONE (07:18)
[2024-03-10] MEDS: ACETAMINOPHEN 500 MG TAB PO ONE (07:18)
[2024-03-10] MEDS ORDERED: LIDO1CRE2 TOP (08:38)
[2024-03-10] MEDS ORDERED: DICL100G10 TOP (08:38)
[2024-03-10 08:50] VITALS: BP 129/73; TEMP 97.6; O2SAT 97
== END 2024-03-10 08:57 | disposition home or self-care (01) ==
LOC: M ED 04:30
DX: S69.91XA Unspecified injury of right wrist, hand and finger(s), initial encounter (principal); W01.0XXA Fall on same level from slipping, tripping and stumbling without subsequent striking against object, initial encounter; Y93.54 Activity, bowling; Y92.39 Other specified sports and athletic area as the place of occurrence of the external cause; J44.9 Chronic obstructive pulmonary disease, unspecified; K21.9 Gastro-esophageal reflux disease without esophagitis; Z79.899 Other long term (current) drug therapy; Z88.8 Allergy status to other drugs, medicaments and biological substances

== ENCOUNTER → 2024-03-21 | Outpatient (CLI) | payer MEDICARE, MEDICAID ==
[~2024-03-21] MED LIST changes: +DICL100G10 TOP; +LIDO4CRE12 TOP
== END ==
LOC: M WHC 14:25
PROVIDERS: ATTEND Pediatrics
DX: N93.9 Abnormal uterine and vaginal bleeding, unspecified (principal)

== ENCOUNTER → 2024-06-12 | Outpatient (CLI) | payer MEDICARE, MEDICAID | LOC: M WUC 15:53 | PROVIDERS: ATTEND Pediatrics | DX: R07.89 Other chest pain (principal); S22.32XA Fracture of one rib, left side, initial encounter for closed fracture; Y92.9 Unspecified place or not applicable; Y93.9 Activity, unspecified; Y99.9 Unspecified external cause status ==

== ENCOUNTER 2024-07-15 11:43 | Day surgery (SDC) | payer MEDICARE, MEDICAID ==
[~2024-07-15] VITALS: Ht 162.6 cm; Wt 72.6 kg
[~2024-07-15 11:43] MED LIST changes: +CARI-555 PO; -CARI1TAB7 PO; +FERR32TA PO
[2024-07-15] MEDS ORDERED: LIDOCAINE 2% 100MG/5ML SDV (FOR ANES.) As Ordered ONE (14:03)
[2024-07-15] MEDS ORDERED: propofoL 200 MG/20 ML VIAL As Ordered ONE (14:03)
[2024-07-15] MEDS ORDERED: fentaNYL 100 MCG/2 ML INJECTION As Ordered ONE (14:04)
[2024-07-15 14:39] VITALS: TEMP 97.6
[2024-07-15 15:02] VITALS: BP 145/72; O2SAT 97
== END 2024-07-15 15:25 | disposition home or self-care (01) ==
LOC: M OPP 11:43
PROVIDERS: ATTEND Internal Medicine Gastroenterology
DX: Z12.11 Encounter for screening for malignant neoplasm of colon (principal); D12.0 Benign neoplasm of cecum; K57.30 Diverticulosis of large intestine without perforation or abscess without bleeding; K64.0 First degree hemorrhoids; K21.00 Gastro-esophageal reflux disease with esophagitis, without bleeding; K44.9 Diaphragmatic hernia without obstruction or gangrene; K22.89 Other specified disease of esophagus; R12 Heartburn; Z88.5 Allergy status to narcotic agent; Z88.8 Allergy status to other drugs, medicaments and biological substances; Z79.899 Other long term (current) drug therapy; J44.9 Chronic obstructive pulmonary disease, unspecified
CPT/HCPCS: 43239; 45380; 88305; J3010

== ENCOUNTER → 2024-12-09 | Outpatient (REF) | payer MEDICARE, MEDICAID ==
[~2024-12-09] MED LIST changes: +LIDO1ADH93 TD; -LIDO5DIS41 TD
[2024-12-09 17:11] LABS: BASO # 0.0 10^3/uL (0.0-0.2); BASO % 0.2 % (0.0-1.0); EOS # 0.0 10^3/uL (0.0-0.5); EOS % 0.3 % (0.0-3.0); LYMPH # 1.6 10^3/uL (1.5-5.0); LYMPH % 25.3 % (24.0-44.0); MONO # 0.4 10^3/uL (0.0-0.8); MONO % 5.7 % (2.0-8.0); NEUTROPHILS # 4.4 10^3/uL (1.5-8.5); NEUTROPHILS % 68.2 % (36.0-66.0); PLATELET COUNT, AUTOMATED 148 10^3/uL (150-450)
[2024-12-09 17:21] LABS: ERYTHROCYTE SEDIMENTATION RATE 28 mm/hr (0-30)
[2024-12-09 17:37] LABS: CHOLESTEROL LEVEL 217.0 MG/DL (<200); CHOLESTEROL RISK RATIO 4.34 (<5); IRON (FE) 61.0 UG/DL (50-170); LDL CHOLESTEROL 125.8 MG/DL (<100); NON-HDL-C 167.0 MG/DL; PERCENT SATURATION 21.8 % (13.2-45.0); TRIGLYCERIDES LEVEL 206.0 MG/DL (<150)
[2024-12-09 17:39] LABS: TOTAL 25(OH) VITAMIN D 30.6 NG/ML (20.0-100.0)
== END ==
LOC: M LAB REF 16:39
PROVIDERS: ATTEND Pediatrics
DX: M85.80 Other specified disorders of bone density and structure, unspecified site (principal); E61.1 Iron deficiency; E78.5 Hyperlipidemia, unspecified; H57.11 Ocular pain, right eye

== ENCOUNTER → 2025-02-25 | Outpatient (REF) | payer MEDICARE, MEDICAID | LOC: M LAB REF 12:29 | PROVIDERS: ATTEND Physician Assistant | DX: R30.0 Dysuria (principal) ==

== ENCOUNTER → 2025-05-05 | Outpatient (CLI) | payer MEDICARE, MEDICAID ==
[2025-05-05 12:57] LABS: BASO # 0.0 10^3/uL (0.0-0.2); BASO % 0.2 % (0.0-1.0); EOS # 0.0 10^3/uL (0.0-0.5); EOS % 0.4 % (0.0-3.0); LYMPH # 1.6 10^3/uL (1.5-5.0); LYMPH % 28.6 % (24.0-44.0); MONO # 0.3 10^3/uL (0.0-0.8); MONO % 5.6 % (2.0-8.0); NEUTROPHILS # 3.6 10^3/uL (1.5-8.5); NEUTROPHILS % 64.8 % (36.0-66.0); PLATELET COUNT, AUTOMATED 165 10^3/uL (150-450)
[2025-05-05 13:19] LABS: CHOLESTEROL LEVEL 159.0 MG/DL (<200); CHOLESTEROL RISK RATIO 3.13 (<5); IRON (FE) 63.0 UG/DL (50-170); LDL CHOLESTEROL 95.7 MG/DL (<100); NON-HDL-C 108.3 MG/DL; PERCENT SATURATION 24.3 % (13.2-45.0); TRIGLYCERIDES LEVEL 63.0 MG/DL (<150)
== END ==
LOC: M WUC 09:11
PROVIDERS: ATTEND Student in an Organized Health Care Education/Training Program
DX: E78.5 Hyperlipidemia, unspecified (principal); E61.1 Iron deficiency